=== PATIENT | male | born 1945 | race Caucasian/White ===

== ENCOUNTER → 2018-01-29 06:47 | Outpatient (CLI) | payer MEDICARE, OTHER, SELFPAY ==
[2018-01-29 07:55] LABS: Add Manual Diff / Slide Review NO; Basophils Percent Auto 0.6 % (0-2); Hematocrit 45.3 % (41-53); Hemoglobin 15.3 g/dL (13.5-17.5); Lymphocytes Percent Auto 36.6 % (25-40); Mean Corpuscular HGB Conc 33.9 % (30-36); Mean Corpuscular Hemoglobin 33.4 PG (26-34); Mean Corpuscular Volume 98.5 fL (80-100); Monocytes Percent Auto 9.9 % (3-14); Neutrophils Absolute Auto 2500 /uL (3000-5900); Neutrophils Percent Auto 48.9 % (50-75); Platelet Count 153 X10^3/uL (150-400); White Blood Cell Count 5.2 X10^3/uL (4.5-11.0)
[2018-01-29 08:35] LABS: Alanine Aminotransferase 26 IU/L (21-72); Albumin 4.2 g/dL (3.5-5.0); Albumin Globulin Ratio 1.6 (1.0-2.8); Alkaline Phosphatase 55 U/L (38-126); Aspartate Aminotransferase 23 IU/L (17-59); BUN Creatinine Ratio 23.3 (6-22); Bilirubin Total 0.7 mg/dL (0.2-1.3); Blood Urea Nitrogen 21 mg/dL (9-20); Calcium 9.5 mg/dL (8.4-10.2); Carbon Dioxide 29 mmol/L (22-32); Chloride 103 mmol/L (98-107); Cholesterol 162 mg/dL (140-199); Estimated Glomerular Filt Rate > 60.0 mL/min (>60); Globulin 2.7 g/dL (1.7-4.1); Glucose 95 mg/dL (80-110); HDL Cholesterol 87 mg/dL (40-60); HEMOLYSIS < 15 (0-50); LDL Cholesterol Calculated 65 mg/dL (<100); Sodium 142 mmol/L (137-145); Total Protein 6.9 g/dL (6.3-8.2); Triglycerides 51 mg/dL (35-150); Uric Acid 4.1 mg/dL (3.5-8.5)
== END ==
PROVIDERS: PCP Family Medicine; Visit Provider Family Medicine
DX: I10 Essential (primary) hypertension (principal); Z51.81 Encounter for therapeutic drug level monitoring; E78.5 Hyperlipidemia, unspecified; M10.9 Gout, unspecified; Z13.9 Encounter for screening, unspecified
CPT/HCPCS: 36415; 80053; 80061; 84550; 85025

== ENCOUNTER 2018-02-27 09:00 | Outpatient (RCR) | payer MEDICARE, OTHER, SELFPAY ==
--- NOTE | 2018-01-10 13:46 | PT.OIE ---
Current Diagnoses Other chronic pain (01/09/18) Pain in right shoulder (01/09/18) Pain in left shoulder (01/09/18) Past Medical History (Last Reviewed 12/01/17 @ 07:06 by Inocente Carl MD) Chronic left shoulder pain (Chronic) Chronic right shoulder pain (Chronic 04/19/17) BPH (benign prostatic hyperplasia) (Chronic Unknown) GERD (gastroesophageal reflux disease) (Chronic Unknown) Gout (Chronic Unknown) Hearing loss (Chronic Unknown) Hyperlipemia (Chronic Unknown) Hypertension (Chronic Unknown) Shoulder pain (Chronic Unknown) Bladder stones (Resolved Unknown) Chickenpox (Resolved Unknown) Knee pain (Resolved Unknown) Measles (Resolved Unknown) Past Surgical History (Last Reviewed 12/01/17 @ 06:59 by Inocente Carl MD) Hx of cystoscopy (Resolved 01/2015) Provider Visit Care Team Role Provider Type Inocente Carl MD Attending Provider Physician Family Provider Primary Care Provider Specialty: Family Practice Address: [address] [place] [address] Email: [email or web address] Physical Therapy Initial Evaluation PT-OP-A Visit Information Start: 01/09/18 14:22 Freq: Status: Active Protocol: Document 01/09/18 11:00 EA (Rec: 01/09/18 14:27 EA [id number]) Out-Patient Physical Therapy Visit Information Visit Information Visit Type Initial Evaluation Visit Start Time 09:45 Visit Stop Time 10:30 Total Visit Minutes 35 Visit Number 1 Evaluation Information Evaluation Date 01/09/18 PT-OP-B Current Condition Start: 01/09/18 14:22 Freq: Status: Active Protocol: Document 01/09/18 11:00 EA (Rec: 01/10/18 10:32 EA [id number]) Current Condition History of Current Condition Onset Date 04/2017 Current Complaints Bilateral shoulder pain R > L rated 4/10 with activity History of Current Condition Patient condition is a relapsed which initially started 7-8 months ago which he had 80% recovery with the help of PT on May of 2017 . Patient reports he followed HEP protocol religiously until August/September of this year when he felt that pain to right shoulder was not subsiding. Prior Treatments and Tests Formal PT 7-8 months ago Future Testing and Treatments Planned none Treatment Goals Patient/Caregiver Goals Wants to reduces shoulder pain and be able to perform overhead movement tasks without or with less difficulty. Prior Functional Status Baseline Function- ADL's Independent Current Functional Impairments (Reported) Functional Limitations- ADL's Mod difficulty with ADLS's with overhead movement. PT-OP-C Subjective Start: 01/09/18 14:22 Freq: Status: Active Protocol: Document 01/09/18 11:00 EA (Rec: 01/10/18 13:45 EA [id number]) OP-PT Subjective Patient Comments Patient Comments Patient c/o of right shoulder overhead movemnt due to localized posterior right shoulder pain rated 4/10 PS Patient Reported Progress Same Patient Questionnaires Quick Dash- Upper Extremity Quick Dash UE Score 36 Quick Dash UE Impairment 20 to 39% Impaired (Score 20- 39) PT-OP-E Functional Tests Start: 01/09/18 14:22 Freq: Status: Active Protocol: Document 01/09/18 11:00 EA (Rec: 01/10/18 13:45 EA [id number]) Functional Tests Apley's Scratch Test Action 1: The subject is instructed to touch the opposite shoulder with his/her hand. This motion checks Glenohumeral adduction, internal rotation , horizontal adduction and scapular protraction Action 2: The subject is instructed to place his/her arm overhead and reach behind the neck to touch his/her upper back. This motion checks Glenohumeral abduction, external rotation and scapular upward rotation and elevation. Action 3: The subject puts his/her hand on the lower back and reaches upward as far as possible. This motion checks glenohumeral adduction, internal rotation and scapular retraction with downward rotation Action 2- Left T2 Action 2- Right C7 Action 3- Left T10 Action 3- Right L1 PT-OP-K Range of Motion Start: 01/09/18 14:22 Freq: Status: Active Protocol: Document 01/09/18 11:00 EA (Rec: 01/10/18 13:45 EA [id number]) Shoulder Goniometric Range of Motion Shoulder Measured in Degrees Left Active Testing Position Sitting Flexion 170 Abduction 170 External Rotation at 0 degrees Abduction 80 Internal Rotation 50 Right Shoulder ROM WFL Yes Testing Position Sitting Flexion 160 Extension 160 External Rotation at 90 degrees 70 Abduction Internal Rotation 45 Shoulder ROM Limitations Shoulder ROM Limitations Soft Tissue Tightness Pain PT-OP-L Special Tests Start: 01/09/18 14:22 Freq: Status: Active Protocol: Document 01/09/18 11:00 EA (Rec: 01/10/18 13:45 EA [id number]) Special Tests Shoulder Special Tests Elevation Impingement Test Results Right positive Lift-Off Rotator Cuff Test Results Right positive Xiao Tahir Impingement Test Results Right positive Empty Can Test Results Right positive PT-OP-M Strength Start: 01/09/18 14:22 Freq: Status: Active Protocol: Document 01/09/18 11:00 EA (Rec: 01/10/18 13:45 EA [id number]) Shoulder Strength Shoulder Manual Muscle Testing Right Flexion 4- Good- Extension 4+ Good+ Abduction (C5) 4- Good- External Rotation 4- Good- Internal Rotation 4- Good- PT-OP-Q Treatments Start: 01/09/18 14:22 Freq: Status: Active Protocol: Document 01/09/18 11:00 EA (Rec: 01/10/18 13:45 EA [id number]) Self-Care/Home Management Treatment Education Patient Education Home Exercise Program Pain Management Posture PT-OP-T Assessment and Plan Start: 01/09/18 14:22 Freq: Status: Active Protocol: Document 01/09/18 11:00 EA (Rec: 01/10/18 13:45 EA [id number]) Physical Therapy Assessment Goals Three Impairment Subjective right shoulder pain of 4/10 with overhead movement Fdc Goal (LTG) Patient will perform overhead movement with Less than 1/10 PS. LTG Duration 4 /10 Two Impairment Right shoulder ER/IR, ABD, Flexion limitation Club Licensee Goal (LTG) Patient will exhibit Normal ROM with R shoulder ABD/ Flexion/ ER/IR LTG Duration 4 wks One Impairment Quickdash score of 36 Club Licensee Goal (LTG) Patient will have QuickDash score of < 15 LTG Duration 4 wks Assessment Summary Assessment Pleasant 72 y/o male patient who exhibits difficulty with overhead movement and reaching back due to pain complaint and LOM to right shoulder. Patient demonstrates tests positive to impingement of posterior and anterior rotator cuff tendons; no indication of full tear at this moment as strength is mainly limited with pain. Patient would benefit with skilled PT to address the aforementioned issues. Physical Therapy Plan Frequency and Duration Frequency of Treatment 2x/Week Plan of Care Start Date 01/09/18 Plan of Care End Date 02/27/18 Therapeutic Interventions Therapeutic Interventions Home Exercise Program Joint Mobilizations Manual Therapy Patient/Caregiver Education Self-Care/Home Management Soft Tissue Mobilization Taping Therapeutic Activities Therapeutic Exercises Modalities Cold Pack/Ice Massage Electric Stimulation Hot Packs Next Visit Focus/Plan Next Note Type Treatment Note Next Visit Plan Reduce pain, increase ROM, decrease ms guarding, improve posture.
--- NOTE | 2018-01-10 13:47 | PT.OPPOC ---
Current Diagnoses Other chronic pain (01/09/18) Pain in right shoulder (01/09/18) Pain in left shoulder (01/09/18) Provider Visit Care Team Role Provider Type Inocente Carl MD Attending Provider Physician Family Provider Primary Care Provider Specialty: Family Practice Address: [address] [place] [address], [id number] Email: [email or web address] Plan Of Care PT-OP-T Assessment and Plan Start: 01/09/18 14:22 Freq: Status: Active Protocol: Document 01/09/18 11:00 EA (Rec: 01/10/18 13:45 EA [id number]) Physical Therapy Assessment Goals Three Impairment Subjective right shoulder pain of 4/10 with overhead movement Usp Goal (LTG) Patient will perform overhead movement with Less than 1/10 PS. LTG Duration 4 /10 Two Impairment Right shoulder ER/IR, ABD, Flexion limitation Usp Goal (LTG) Patient will exhibit Normal ROM with R shoulder ABD/ Flexion/ ER/IR LTG Duration 4 wks One Impairment Quickdash score of 36 Signal Operator Technical Goal (LTG) Patient will have QuickDash score of < 15 LTG Duration 4 wks Assessment Summary Assessment Pleasant 72 y/o male patient who exhibits difficulty with overhead movement and reaching back due to pain complaint and LOM to right shoulder. Patient demonstrates tests positive to impingement of posterior and anterior rotator cuff tendons; no indication of full tear at this moment as strength is mainly limited with pain. Patient would benefit with skilled PT to address the aforementioned issues. Physical Therapy Plan Frequency and Duration Frequency of Treatment 2x/Week Plan of Care Start Date 01/09/18 Plan of Care End Date 02/27/18 Therapeutic Interventions Therapeutic Interventions Home Exercise Program Joint Mobilizations Manual Therapy Patient/Caregiver Education Self-Care/Home Management Soft Tissue Mobilization Taping Therapeutic Activities Therapeutic Exercises Modalities Cold Pack/Ice Massage Electric Stimulation Hot Packs Next Visit Focus/Plan Next Note Type Treatment Note Next Visit Plan Reduce pain, increase ROM, decrease ms guarding, improve posture. Plan of Care Dates Plan of Care Start Date 01/09/18 Plan of Care End Date 02/27/18 Please Sign and Return: I have reviewed this Plan of Care and certify that the skilled therapy services above are required to meet the patient?s needs. Physician Signature Date Printed Name and Credentials Clinical Instructor Signature Printed Name and Credentials
--- NOTE | 2018-01-16 13:06 | PT.OTN ---
Current Diagnoses Other chronic pain (01/16/18) Pain in right shoulder (01/16/18) Pain in left shoulder (01/16/18) Physical Therapy Treatment Note PT-OP-A Visit Information Start: 01/09/18 14:22 Freq: Status: Active Protocol: Document 01/16/18 10:38 EA (Rec: 01/16/18 11:14 EA [id number]) Out-Patient Physical Therapy Visit Information Visit Information Visit Type Treatment Note Visit Start Time 10:32 Visit Stop Time 11:40 Total Visit Minutes 38 Visit Number 2 PT-OP-B Current Condition Start: 01/09/18 14:22 Freq: Status: Active Protocol: Document 01/09/18 11:00 EA (Rec: 01/10/18 10:32 EA [id number]) Current Condition History of Current Condition Onset Date 04/2017 Current Complaints Bilateral shoulder pain R > L rated 4/10 with activity History of Current Condition Patient condition is a relapsed which initially started 7-8 months ago which he had 80% recovery with the help of PT on May of 2017 . Patient reports he followed HEP protocol religiosly until August/September of this year when he felt that pain to right shoulder was not subsiding. Prior Treatments and Tests Formal PT 7-8 months ago Future Testing and Treatments Planned none Treatment Goals Patient/Caregiver Goals Wants to redues shoulder pain and be able to perform overhead movement tasks without or with less difficulty. Prior Functional Status Baseline Function- ADL's Independent Current Functional Impairments (Reported) Functional Limitations- ADL's Mod difficulty with ADLS's with overhead movement. PT-OP-C Subjective Start: 01/09/18 14:22 Freq: Status: Active Protocol: Document 01/16/18 10:38 EA (Rec: 01/16/18 11:14 EA [id number]) OP-PT Subjective Patient Comments Patient Comments Patient reports pain at night Patient Reported Progress Same PT-OP-E Functional Tests Start: 01/09/18 14:22 Freq: Status: Active Protocol: Document 01/09/18 11:00 EA (Rec: 01/10/18 13:45 EA [id number]) Functional Tests Brittaniey's Scratch Test Action 1: The subject is instructed to touch the opposite shoulder with his/her hand. This motion checks Glenohumeral adduction, internal rotation , horizontal adduction and scapular protraction Action 2: The subject is instructed to place his/her arm overhead and reach behind the neck to touch his/her upper back. This motion checks Glenohumeral abduction, external rotation and scapular upward rotation and elevation. Action 3: The subject puts his/her hand on the lower back and reaches upward as far as possible. This motion checks glenohumeral adduction, internal rotation and scapular retraction with downward rotation Action 2- Left T2 Action 2- Right C7 Action 3- Left T10 Action 3- Right L1 PT-OP-K Range of Motion Start: 01/09/18 14:22 Freq: Status: Active Protocol: Document 01/09/18 11:00 EA (Rec: 01/10/18 13:45 EA [id number]) Shoulder Goniometric Range of Motion Shoulder Measured in Degrees Left Active Testing Position Sitting Flexion 170 Abduction 170 External Rotation at 0 degrees Abduction 80 Internal Rotation 50 Right Shoulder ROM WFL Yes Testing Position Sitting Flexion 160 Extension 160 External Rotation at 90 degrees 70 Abduction Internal Rotation 45 Shoulder ROM Limitations Shoulder ROM Limitations Soft Tissue Tightness Pain PT-OP-L Special Tests Start: 01/09/18 14:22 Freq: Status: Active Protocol: Document 01/09/18 11:00 EA (Rec: 01/10/18 13:45 EA [id number]) Special Tests Shoulder Special Tests Elevation Impingement Test Results Right positive Lift-Off Rotator Cuff Test Results Right positive Xiao [place]ir Impingement Test Results Right positive Empty Can Test Results Right positive PT-OP-M Strength Start: 01/09/18 14:22 Freq: Status: Active Protocol: Document 01/09/18 11:00 EA (Rec: 01/10/18 13:45 EA [id number]) Shoulder Strength Shoulder Manual Muscle Testing Right Flexion 4- Good- Extension 4+ Good+ Abduction (C5) 4- Good- External Rotation 4- Good- Internal Rotation 4- Good- PT-OP-Q Treatments Start: 01/09/18 14:22 Freq: Status: Active Protocol: Document 01/16/18 10:38 EA (Rec: 01/16/18 11:14 EA [id number]) Cardio Equipment Upper Body Ergometer (UBE) Duration (Minutes) 6 Height 1 Therapeutic Exercises Sitting Exercises 1 Sitting Exercise Name Shoulder pully: Flex/ABD Side right Reps/Minutes x 15 reps x 2 Standing Exercises 3 Standing Exercise Name Pain free range: shoulder ER/ IR Side right Resistance BTB/level 1 2 Standing Exercise Name BTB shoulder row Side bilateral Reps/Minutes x 12 reps x 2 1 Standing Exercise Name BTB shoulder extension Side bilateral Reps/Minutes x12 reps x 2 Manual Therapy Treatment Soft Tissue Mobilization 1 Body Location Right Infraspinatus/ TM tendon Mobilization Type Cross-Friction Intensity/Depth Moderate Comments performed after US PT-OP-R Modalities Start: 01/09/18 14:22 Freq: Status: Active Protocol: Document 01/16/18 10:38 EA (Rec: 01/16/18 11:14 EA [id number]) Hot Pack/Cold Pack Treatment Cold Pack Patient Position Hooklying Treatment Duration (minutes) 12 Patient Tolerance Fair Ultrasound Therapy Treatment Right Shoulder Patient Position Sidelying Coupling Medium Ultrasound Gel Applicator Size (cm2) 8 Mode Setting Continuous Intensity Setting (w/cm2) 1.5 PT-OP-T Assessment and Plan Start: 01/09/18 14:22 Freq: Status: Active Protocol: Document 01/16/18 10:38 EA (Rec: 01/16/18 11:14 EA [id number]) Physical Therapy Assessment Assessment Summary Assessment Tolerated treatment well. Physical Therapy Plan Next Visit Focus/Plan Next Note Type Treatment Note Next Visit Plan Cont with current plan.
--- NOTE | 2018-01-18 13:39 | PT.OTN ---
Current Diagnoses Other chronic pain (01/18/18) Pain in right shoulder (01/18/18) Pain in left shoulder (01/18/18) Physical Therapy Treatment Note PT-OP-A Visit Information Start: 01/09/18 14:22 Freq: Status: Active Protocol: Document 01/18/18 12:56 EA (Rec: 01/18/18 13:00 EA [id number]) Out-Patient Physical Therapy Visit Information Visit Information Visit Type Treatment Note Visit Start Time 12:15 Visit Stop Time 13:08 Total Visit Minutes 53 Visit Number 3 PT-OP-B Current Condition Start: 01/09/18 14:22 Freq: Status: Active Protocol: Document 01/09/18 11:00 EA (Rec: 01/10/18 10:32 EA [id number]) Current Condition History of Current Condition Onset Date 04/2017 Current Complaints Bilateral shoulder pain R > L rated 4/10 with activity History of Current Condition Patient condition is a relapsed which initially started 7-8 months ago which he had 80% recovery with the help of PT on May of 2017 . Patient reports he followed HEP protocol religiosly until August/September of this year when he felt that pain to right shoulder was not subsiding. Prior Treatments and Tests Formal PT 7-8 months ago Future Testing and Treatments Planned none Treatment Goals Patient/Caregiver Goals Wants to redues shoulder pain and be able to perform overhead movement tasks without or with less difficulty. Prior Functional Status Baseline Function- ADL's Independent Current Functional Impairments (Reported) Functional Limitations- ADL's Mod difficulty with ADLS's with overhead movement. PT-OP-C Subjective Start: 01/09/18 14:22 Freq: Status: Active Protocol: Document 01/18/18 12:56 EA (Rec: 01/18/18 13:00 EA [id number]) OP-PT Subjective Patient Comments Patient Comments Pt reports able to sleep welland feels shoulder is getting better PT-OP-E Functional Tests Start: 01/09/18 14:22 Freq: Status: Active Protocol: Document 01/09/18 11:00 EA (Rec: 01/10/18 13:45 EA [id number]) Functional Tests Brittaniey's Scratch Test Action 1: The subject is instructed to touch the opposite shoulder with his/her hand. This motion checks Glenohumeral adduction, internal rotation , horizontal adduction and scapular protraction Action 2: The subject is instructed to place his/her arm overhead and reach behind the neck to touch his/her upper back. This motion checks Glenohumeral abduction, external rotation and scapular upward rotation and elevation. Action 3: The subject puts his/her hand on the lower back and reaches upward as far as possible. This motion checks glenohumeral adduction, internal rotation and scapular retraction with downward rotation Action 2- Left T2 Action 2- Right C7 Action 3- Left T10 Action 3- Right L1 PT-OP-K Range of Motion Start: 01/09/18 14:22 Freq: Status: Active Protocol: Document 01/09/18 11:00 EA (Rec: 01/10/18 13:45 EA [id number]) Shoulder Goniometric Range of Motion Shoulder Measured in Degrees Left Active Testing Position Sitting Flexion 170 Abduction 170 External Rotation at 0 degrees Abduction 80 Internal Rotation 50 Right Shoulder ROM WFL Yes Testing Position Sitting Flexion 160 Extension 160 External Rotation at 90 degrees 70 Abduction Internal Rotation 45 Shoulder ROM Limitations Shoulder ROM Limitations Soft Tissue Tightness Pain PT-OP-L Special Tests Start: 01/09/18 14:22 Freq: Status: Active Protocol: Document 01/09/18 11:00 EA (Rec: 01/10/18 13:45 EA [id number]) Special Tests Shoulder Special Tests Elevation Impingement Test Results Right positive Lift-Off Rotator Cuff Test Results Right positive Xiao Tahir Impingement Test Results Right positive Empty Can Test Results Right positive PT-OP-M Strength Start: 01/09/18 14:22 Freq: Status: Active Protocol: Document 01/09/18 11:00 EA (Rec: 01/10/18 13:45 EA [id number]) Shoulder Strength Shoulder Manual Muscle Testing Right Flexion 4- Good- Extension 4+ Good+ Abduction (C5) 4- Good- External Rotation 4- Good- Internal Rotation 4- Good- PT-OP-Q Treatments Start: 01/09/18 14:22 Freq: Status: Active Protocol: Document 01/18/18 12:56 EA (Rec: 01/18/18 13:00 EA [id number]) Cardio Equipment Upper Body Ergometer (UBE) Duration (Minutes) 6 Height 1 Therapeutic Exercises Standing Exercises 3 Standing Exercise Name Pain free range: shoulder ER/ IR Side right Resistance BTB/level 1 2 Standing Exercise Name BTB shoulder row Side bilateral Reps/Minutes x 12 reps x 2 1 Standing Exercise Name BTB shoulder extension Side bilateral Reps/Minutes x12 reps x 2 Manual Therapy Treatment Soft Tissue Mobilization 1 Body Location Right Infraspinatus/ TM tendon Mobilization Type Cross-Friction Intensity/Depth Moderate Comments performed after US PT-OP-R Modalities Start: 01/09/18 14:22 Freq: Status: Active Protocol: Document 01/18/18 12:56 EA (Rec: 01/18/18 13:00 EA [id number]) Electric Stimulation Electric Stimulation Interferential Current (IFC) Body Location right shoulder Duration (Minutes) 15 Combined With Heat/Cold Cold Pack Ultrasound Therapy Treatment Right Shoulder Patient Position Sidelying Coupling Medium Ultrasound Gel Applicator Size (cm2) 8 Mode Setting Continuous Intensity Setting (w/cm2) 1.5 PT-OP-T Assessment and Plan Start: 01/09/18 14:22 Freq: Status: Active Protocol: Document 01/18/18 12:56 EA (Rec: 01/18/18 13:00 EA [id number]) Physical Therapy Assessment Assessment Summary Assessment Tolerated treatment well and no increased in symptoms with exercises. Pt is progressing well. Physical Therapy Plan Next Visit Focus/Plan Next Note Type Treatment Note Next Visit Plan Cont with current plan.
--- NOTE | 2018-01-23 14:24 | PT.OTN ---
Current Diagnoses Other chronic pain (01/23/18) Pain in right shoulder (01/23/18) Pain in left shoulder (01/23/18) Physical Therapy Treatment Note PT-OP-A Visit Information Start: 01/09/18 14:22 Freq: Status: Active Protocol: Document 01/23/18 10:36 EA (Rec: 01/23/18 11:14 EA [id number]) Out-Patient Physical Therapy Visit Information Visit Information Visit Type Treatment Note Visit Start Time 12:15 Visit Stop Time 13:08 Total Visit Minutes 53 Visit Number 3 PT-OP-B Current Condition Start: 01/09/18 14:22 Freq: Status: Active Protocol: Document 01/09/18 11:00 EA (Rec: 01/10/18 10:32 EA [id number]) Current Condition History of Current Condition Onset Date 04/2017 Current Complaints Bilateral shoulder pain R > L rated 4/10 with activity History of Current Condition Patient condition is a relapsed which initially started 7-8 months ago which he had 80% recovery with the help of PT on May of 2017 . Patient reports he followed HEP protocol religiosly until August/September of this year when he felt that pain to right shoulder was not subsiding. Prior Treatments and Tests Formal PT 7-8 months ago Future Testing and Treatments Planned none Treatment Goals Patient/Caregiver Goals Wants to redues shoulder pain and be able to perform overhead movement tasks without or with less difficulty. Prior Functional Status Baseline Function- ADL's Independent Current Functional Impairments (Reported) Functional Limitations- ADL's Mod difficulty with ADLS's with overhead movement. PT-OP-C Subjective Start: 01/09/18 14:22 Freq: Status: Active Protocol: Document 01/23/18 10:36 EA (Rec: 01/23/18 11:14 EA [id number]) OP-PT Subjective Patient Comments Patient Comments Pt reports pain made his woke up last night; states today no pain complaint; overall he is much feeling better. PT-OP-E Functional Tests Start: 01/09/18 14:22 Freq: Status: Active Protocol: Document 01/09/18 11:00 EA (Rec: 01/10/18 13:45 EA [id number]) Functional Tests Brittaniey's Scratch Test Action 1: The subject is instructed to touch the opposite shoulder with his/her hand. This motion checks Glenohumeral adduction, internal rotation , horizontal adduction and scapular protraction Action 2: The subject is instructed to place his/her arm overhead and reach behind the neck to touch his/her upper back. This motion checks Glenohumeral abduction, external rotation and scapular upward rotation and elevation. Action 3: The subject puts his/her hand on the lower back and reaches upward as far as possible. This motion checks glenohumeral adduction, internal rotation and scapular retraction with downward rotation Action 2- Left T2 Action 2- Right C7 Action 3- Left T10 Action 3- Right L1 PT-OP-K Range of Motion Start: 01/09/18 14:22 Freq: Status: Active Protocol: Document 01/09/18 11:00 EA (Rec: 01/10/18 13:45 EA [id number]) Shoulder Goniometric Range of Motion Shoulder Measured in Degrees Left Active Testing Position Sitting Flexion 170 Abduction 170 External Rotation at 0 degrees Abduction 80 Internal Rotation 50 Right Shoulder ROM WFL Yes Testing Position Sitting Flexion 160 Extension 160 External Rotation at 90 degrees 70 Abduction Internal Rotation 45 Shoulder ROM Limitations Shoulder ROM Limitations Soft Tissue Tightness Pain PT-OP-L Special Tests Start: 01/09/18 14:22 Freq: Status: Active Protocol: Document 01/09/18 11:00 EA (Rec: 01/10/18 13:45 EA [id number]) Special Tests Shoulder Special Tests Elevation Impingement Test Results Right positive Lift-Off Rotator Cuff Test Results Right positive Xiao [place]ir Impingement Test Results Right positive Empty Can Test Results Right positive PT-OP-M Strength Start: 01/09/18 14:22 Freq: Status: Active Protocol: Document 01/09/18 11:00 EA (Rec: 01/10/18 13:45 EA [id number]) Shoulder Strength Shoulder Manual Muscle Testing Right Flexion 4- Good- Extension 4+ Good+ Abduction (C5) 4- Good- External Rotation 4- Good- Internal Rotation 4- Good- PT-OP-Q Treatments Start: 01/09/18 14:22 Freq: Status: Active Protocol: Document 01/23/18 10:36 EA (Rec: 01/23/18 11:14 EA [id number]) Cardio Equipment Upper Body Ergometer (UBE) Duration (Minutes) 6 Height 1-5 Therapeutic Exercises Sidelying Exercises 1 Sidelying Exercise Name SL to left DH shoulder ER, ABD , Horiz ABD Side right Equipment Used DB Reps/Minutes x 15 reps x 2 Standing Exercises 3 Standing Exercise Name Pain free range: shoulder ER/ IR Side right Resistance BTB/level 1 2 Standing Exercise Name BTB shoulder row Side bilateral Reps/Minutes x 12 reps x 2 1 Standing Exercise Name BTB shoulder extension Side bilateral Reps/Minutes x12 reps x 2 Manual Therapy Treatment Soft Tissue Mobilization 1 Body Location Right Infraspinatus/ TM tendon Mobilization Type Cross-Friction Intensity/Depth Moderate Comments performed after US PT-OP-R Modalities Start: 01/09/18 14:22 Freq: Status: Active Protocol: Document 01/23/18 10:36 EA (Rec: 01/23/18 11:14 EA [id number]) Electric Stimulation Electric Stimulation Interferential Current (IFC) Body Location right shoulder Duration (Minutes) 15 Combined With Heat/Cold Cold Pack Ultrasound Therapy Treatment Right Shoulder Patient Position Sidelying Coupling Medium Ultrasound Gel Applicator Size (cm2) 8 Mode Setting Continuous Intensity Setting (w/cm2) 1.5 PT-OP-T Assessment and Plan Start: 01/09/18 14:22 Freq: Status: Active Protocol: Document 01/23/18 10:36 EA (Rec: 01/23/18 11:14 EA [id number]) Physical Therapy Assessment Assessment Summary Assessment Patient is progresing well; no pain complaint during free weight exercises. Physical Therapy Plan Next Visit Focus/Plan Next Note Type Treatment Note Next Visit Plan advance as tolerated
--- NOTE | 2018-01-25 15:24 | PT.OTN ---
Current Diagnoses Other chronic pain (01/25/18) Pain in right shoulder (01/25/18) Pain in left shoulder (01/25/18) Physical Therapy Treatment Note PT-OP-A Visit Information Start: 01/09/18 14:22 Freq: Status: Active Protocol: Document 01/25/18 15:11 EA (Rec: 01/25/18 15:16 EA [id number]) Out-Patient Physical Therapy Visit Information Visit Information Visit Type Treatment Note Visit Start Time 14:30 Visit Stop Time 15:15 Total Visit Minutes 53 Visit Number 5 PT-OP-B Current Condition Start: 01/09/18 14:22 Freq: Status: Active Protocol: Document 01/09/18 11:00 EA (Rec: 01/10/18 10:32 EA [id number]) Current Condition History of Current Condition Onset Date 04/2017 Current Complaints Bilateral shoulder pain R > L rated 4/10 with activity History of Current Condition Patient condition is a relapsed which initially started 7-8 months ago which he had 80% recovery with the help of PT on May of 2017 . Patient reports he followed HEP protocol religiosly until August/September of this year when he felt that pain to right shoulder was not subsiding. Prior Treatments and Tests Formal PT 7-8 months ago Future Testing and Treatments Planned none Treatment Goals Patient/Caregiver Goals Wants to redues shoulder pain and be able to perform overhead movement tasks without or with less difficulty. Prior Functional Status Baseline Function- ADL's Independent Current Functional Impairments (Reported) Functional Limitations- ADL's Mod difficulty with ADLS's with overhead movement. PT-OP-C Subjective Start: 01/09/18 14:22 Freq: Status: Active Protocol: Document 01/25/18 15:11 EA (Rec: 01/25/18 15:16 EA [id number]) OP-PT Subjective Patient Comments Patient Comments Pt reports pain frequency is less and sleeping well. PT-OP-E Functional Tests Start: 01/09/18 14:22 Freq: Status: Active Protocol: Document 01/09/18 11:00 EA (Rec: 01/10/18 13:45 EA [id number]) Functional Tests Brittaniey's Scratch Test Action 1: The subject is instructed to touch the opposite shoulder with his/her hand. This motion checks Glenohumeral adduction, internal rotation , horizontal adduction and scapular protraction Action 2: The subject is instructed to place his/her arm overhead and reach behind the neck to touch his/her upper back. This motion checks Glenohumeral abduction, external rotation and scapular upward rotation and elevation. Action 3: The subject puts his/her hand on the lower back and reaches upward as far as possible. This motion checks glenohumeral adduction, internal rotation and scapular retraction with downward rotation Action 2- Left T2 Action 2- Right C7 Action 3- Left T10 Action 3- Right L1 PT-OP-K Range of Motion Start: 01/09/18 14:22 Freq: Status: Active Protocol: Document 01/09/18 11:00 EA (Rec: 01/10/18 13:45 EA [id number]) Shoulder Goniometric Range of Motion Shoulder Measured in Degrees Left Active Testing Position Sitting Flexion 170 Abduction 170 External Rotation at 0 degrees Abduction 80 Internal Rotation 50 Right Shoulder ROM WFL Yes Testing Position Sitting Flexion 160 Extension 160 External Rotation at 90 degrees 70 Abduction Internal Rotation 45 Shoulder ROM Limitations Shoulder ROM Limitations Soft Tissue Tightness Pain PT-OP-L Special Tests Start: 01/09/18 14:22 Freq: Status: Active Protocol: Document 01/09/18 11:00 EA (Rec: 01/10/18 13:45 EA [id number]) Special Tests Shoulder Special Tests Elevation Impingement Test Results Right positive Lift-Off Rotator Cuff Test Results Right positive Xiao [place]ir Impingement Test Results Right positive Empty Can Test Results Right positive PT-OP-M Strength Start: 01/09/18 14:22 Freq: Status: Active Protocol: Document 01/09/18 11:00 EA (Rec: 01/10/18 13:45 EA [id number]) Shoulder Strength Shoulder Manual Muscle Testing Right Flexion 4- Good- Extension 4+ Good+ Abduction (C5) 4- Good- External Rotation 4- Good- Internal Rotation 4- Good- PT-OP-Q Treatments Start: 01/09/18 14:22 Freq: Status: Active Protocol: Document 01/25/18 15:11 EA (Rec: 01/25/18 15:16 EA [id number]) Cardio Equipment Upper Body Ergometer (UBE) Duration (Minutes) 6 Height 3-7 Therapeutic Exercises Sidelying Exercises 1 Sidelying Exercise Name SL to left DH shoulder ER, ABD , Horiz ABD Side right Equipment Used DB Reps/Minutes x 15 reps x 2 Standing Exercises 4 Standing Exercise Name wall slides Resistance 2# aw TO WRIST Reps/Minutes 10 x 3 sets Comments V-Front -rectangle 3 Standing Exercise Name Pain free range: shoulder ER/ IR Side right Resistance BTB/level 1 2 Standing Exercise Name BTB shoulder row Side bilateral Reps/Minutes x 12 reps x 2 1 Standing Exercise Name BTB shoulder extension Side bilateral Reps/Minutes x12 reps x 2 Manual Therapy Treatment Soft Tissue Mobilization 1 Body Location Right Infraspinatus/ TM tendon Mobilization Type Cross-Friction Intensity/Depth Moderate Comments performed after US PT-OP-R Modalities Start: 01/09/18 14:22 Freq: Status: Active Protocol: Document 01/25/18 15:11 EA (Rec: 01/25/18 15:16 EA [id number]) Electric Stimulation Electric Stimulation Interferential Current (IFC) Body Location right shoulder Duration (Minutes) 15 Combined With Heat/Cold Cold Pack Ultrasound Therapy Treatment Right Shoulder Patient Position Sidelying Coupling Medium Ultrasound Gel Applicator Size (cm2) 8 Mode Setting Continuous Intensity Setting (w/cm2) 1.5 PT-OP-T Assessment and Plan Start: 01/09/18 14:22 Freq: Status: Active Protocol: Document 01/25/18 15:11 EA (Rec: 01/25/18 15:16 EA [id number]) Physical Therapy Assessment Assessment Summary Assessment Pt cont to progress. Adnace as tolerated Physical Therapy Plan Next Visit Focus/Plan Next Note Type Treatment Note Next Visit Plan advance as tolerated
--- NOTE | 2018-01-30 07:18 | PT.OTN ---
Current Diagnoses Other chronic pain (01/29/18) Pain in right shoulder (01/29/18) Pain in left shoulder (01/29/18) Physical Therapy Treatment Note PT-OP-A Visit Information Start: 01/09/18 14:22 Freq: Status: Active Protocol: Document 01/29/18 15:21 EA (Rec: 01/29/18 16:04 EA [id number]) Out-Patient Physical Therapy Visit Information Visit Information Visit Type Treatment Note Visit Start Time 15:15 Visit Stop Time 16:00 Total Visit Minutes 53 Visit Number 6 PT-OP-B Current Condition Start: 01/09/18 14:22 Freq: Status: Active Protocol: Document 01/09/18 11:00 EA (Rec: 01/10/18 10:32 EA [id number]) Current Condition History of Current Condition Onset Date 04/2017 Current Complaints Bilateral shoulder pain R > L rated 4/10 with activity History of Current Condition Patient condition is a relapsed which initially started 7-8 months ago which he had 80% recovery with the help of PT on May of 2017 . Patient reports he followed HEP protocol religiosly until August/September of this year when he felt that pain to right shoulder was not subsiding. Prior Treatments and Tests Formal PT 7-8 months ago Future Testing and Treatments Planned none Treatment Goals Patient/Caregiver Goals Wants to redues shoulder pain and be able to perform overhead movement tasks without or with less difficulty. Prior Functional Status Baseline Function- ADL's Independent Current Functional Impairments (Reported) Functional Limitations- ADL's Mod difficulty with ADLS's with overhead movement. PT-OP-C Subjective Start: 01/09/18 14:22 Freq: Status: Active Protocol: Document 01/29/18 15:21 EA (Rec: 01/29/18 16:04 EA [id number]) OP-PT Subjective Patient Comments Patient Comments Pt reports pain is much less at this time;states function is improving. PT-OP-E Functional Tests Start: 01/09/18 14:22 Freq: Status: Active Protocol: Document 01/09/18 11:00 EA (Rec: 01/10/18 13:45 EA [id number]) Functional Tests Brittaniey's Scratch Test Action 1: The subject is instructed to touch the opposite shoulder with his/her hand. This motion checks Glenohumeral adduction, internal rotation , horizontal adduction and scapular protraction Action 2: The subject is instructed to place his/her arm overhead and reach behind the neck to touch his/her upper back. This motion checks Glenohumeral abduction, external rotation and scapular upward rotation and elevation. Action 3: The subject puts his/her hand on the lower back and reaches upward as far as possible. This motion checks glenohumeral adduction, internal rotation and scapular retraction with downward rotation Action 2- Left T2 Action 2- Right C7 Action 3- Left T10 Action 3- Right L1 PT-OP-K Range of Motion Start: 01/09/18 14:22 Freq: Status: Active Protocol: Document 01/09/18 11:00 EA (Rec: 01/10/18 13:45 EA [id number]) Shoulder Goniometric Range of Motion Shoulder Measured in Degrees Left Active Testing Position Sitting Flexion 170 Abduction 170 External Rotation at 0 degrees Abduction 80 Internal Rotation 50 Right Shoulder ROM WFL Yes Testing Position Sitting Flexion 160 Extension 160 External Rotation at 90 degrees 70 Abduction Internal Rotation 45 Shoulder ROM Limitations Shoulder ROM Limitations Soft Tissue Tightness Pain PT-OP-L Special Tests Start: 01/09/18 14:22 Freq: Status: Active Protocol: Document 01/09/18 11:00 EA (Rec: 01/10/18 13:45 EA [id number]) Special Tests Shoulder Special Tests Elevation Impingement Test Results Right positive Lift-Off Rotator Cuff Test Results Right positive X[place]ir Impingement Test Results Right positive Empty Can Test Results Right positive PT-OP-M Strength Start: 01/09/18 14:22 Freq: Status: Active Protocol: Document 01/09/18 11:00 EA (Rec: 01/10/18 13:45 EA [id number]) Shoulder Strength Shoulder Manual Muscle Testing Right Flexion 4- Good- Extension 4+ Good+ Abduction (C5) 4- Good- External Rotation 4- Good- Internal Rotation 4- Good- PT-OP-Q Treatments Start: 01/09/18 14:22 Freq: Status: Active Protocol: Document 01/29/18 15:21 EA (Rec: 01/29/18 16:04 EA [id number]) Cardio Equipment Upper Body Ergometer (UBE) Duration (Minutes) 6 Height 3-7 Therapeutic Exercises Prone Exercises 1 Prone Exercise Name Shoulder extension/Flexion/ABD Side right Equipment Used 2lbs AW Reps/Minutes 10 reps x 2 Sidelying Exercises 1 Sidelying Exercise Name SL to left DH shoulder ER, ABD , Horiz ABD Side right Equipment Used DB Reps/Minutes x 15 reps x 2 Standing Exercises 4 Standing Exercise Name wall slides Resistance 2-4# aw TO WRIST Reps/Minutes 10 x 3 sets Comments V-Front -rectangle 3 Standing Exercise Name Pain free range: shoulder ER/ IR Side right Resistance BTB/level 1 2 Standing Exercise Name BTB shoulder row Side bilateral Reps/Minutes x 12 reps x 2 1 Standing Exercise Name BTB shoulder extension Side bilateral Reps/Minutes x12 reps x 2 Manual Therapy Treatment Soft Tissue Mobilization 1 Body Location Right Infraspinatus/ TM tendon Mobilization Type Cross-Friction Intensity/Depth Moderate Comments performed after US PT-OP-R Modalities Start: 01/09/18 14:22 Freq: Status: Active Protocol: Document 01/29/18 15:21 EA (Rec: 01/29/18 16:04 EA [id number]) Electric Stimulation Electric Stimulation Interferential Current (IFC) Body Location right shoulder Duration (Minutes) 15 Combined With Heat/Cold Cold Pack PT-OP-T Assessment and Plan Start: 01/09/18 14:22 Freq: Status: Active Protocol: Document 01/29/18 15:21 EA (Rec: 01/29/18 16:04 EA [id number]) Physical Therapy Assessment Assessment Summary Assessment Tolerated treatment well with minor pain complaint. Patient cont. to progress Physical Therapy Plan Next Visit Focus/Plan Next Note Type Treatment Note Next Visit Plan Functional exercises
--- NOTE | 2018-02-01 15:54 | PT.OTN ---
Current Diagnoses Other chronic pain (02/01/18) Pain in right shoulder (02/01/18) Pain in left shoulder (02/01/18) Physical Therapy Treatment Note PT-OP-A Visit Information Start: 01/09/18 14:22 Freq: Status: Active Protocol: Document 02/01/18 14:38 EA (Rec: 02/01/18 15:15 EA [id number]) Out-Patient Physical Therapy Visit Information Visit Information Visit Type Treatment Note Visit Start Time 15:15 Visit Stop Time 16:00 Total Visit Minutes 53 Visit Number 7 Evaluation Information Evaluation Date 01/09/18 PT-OP-B Current Condition Start: 01/09/18 14:22 Freq: Status: Active Protocol: Document 01/09/18 11:00 EA (Rec: 01/10/18 10:32 EA [id number]) Current Condition History of Current Condition Onset Date 04/2017 Current Complaints Bilateral shoulder pain R > L rated 4/10 with activity History of Current Condition Patient condition is a relapsed which initially started 7-8 months ago which he had 80% recovery with the help of PT on May of 2017 . Patient reports he followed HEP protocol religiosly until August/September of this year when he felt that pain to right shoulder was not subsiding. Prior Treatments and Tests Formal PT 7-8 months ago Future Testing and Treatments Planned none Treatment Goals Patient/Caregiver Goals Wants to redues shoulder pain and be able to perform overhead movement tasks without or with less difficulty. Prior Functional Status Baseline Function- ADL's Independent Current Functional Impairments (Reported) Functional Limitations- ADL's Mod difficulty with ADLS's with overhead movement. PT-OP-C Subjective Start: 01/09/18 14:22 Freq: Status: Active Protocol: Document 02/01/18 14:38 EA (Rec: 02/01/18 15:15 EA [id number]) OP-PT Subjective Patient Comments Patient Comments Pt reports pain recurred after last TB shoulder exercises; states today is much feeling better. Patient Reported Progress Improving Patient Questionnaires Quick Dash- Upper Extremity Quick Dash UE Score 36 PT-OP-E Functional Tests Start: 01/09/18 14:22 Freq: Status: Active Protocol: Document 01/09/18 11:00 EA (Rec: 01/10/18 13:45 EA [id number]) Functional Tests Brittaniey's Scratch Test Action 1: The subject is instructed to touch the opposite shoulder with his/her hand. This motion checks Glenohumeral adduction, internal rotation , horizontal adduction and scapular protraction Action 2: The subject is instructed to place his/her arm overhead and reach behind the neck to touch his/her upper back. This motion checks Glenohumeral abduction, external rotation and scapular upward rotation and elevation. Action 3: The subject puts his/her hand on the lower back and reaches upward as far as possible. This motion checks glenohumeral adduction, internal rotation and scapular retraction with downward rotation Action 2- Left T2 Action 2- Right C7 Action 3- Left T10 Action 3- Right L1 PT-OP-K Range of Motion Start: 01/09/18 14:22 Freq: Status: Active Protocol: Document 01/09/18 11:00 EA (Rec: 01/10/18 13:45 EA [id number]) Shoulder Goniometric Range of Motion Shoulder Measured in Degrees Left Active Testing Position Sitting Flexion 170 Abduction 170 External Rotation at 0 degrees Abduction 80 Internal Rotation 50 Right Shoulder ROM WFL Yes Testing Position Sitting Flexion 160 Extension 160 External Rotation at 90 degrees 70 Abduction Internal Rotation 45 Shoulder ROM Limitations Shoulder ROM Limitations Soft Tissue Tightness Pain PT-OP-L Special Tests Start: 01/09/18 14:22 Freq: Status: Active Protocol: Document 01/09/18 11:00 EA (Rec: 01/10/18 13:45 EA [id number]) Special Tests Shoulder Special Tests Elevation Impingement Test Results Right positive Lift-Off Rotator Cuff Test Results Right positive Xiao Tahir Impingement Test Results Right positive Empty Can Test Results Right positive PT-OP-M Strength Start: 01/09/18 14:22 Freq: Status: Active Protocol: Document 01/09/18 11:00 EA (Rec: 01/10/18 13:45 EA [id number]) Shoulder Strength Shoulder Manual Muscle Testing Right Flexion 4- Good- Extension 4+ Good+ Abduction (C5) 4- Good- External Rotation 4- Good- Internal Rotation 4- Good- PT-OP-Q Treatments Start: 01/09/18 14:22 Freq: Status: Active Protocol: Document 02/01/18 14:38 EA (Rec: 02/01/18 15:15 EA [id number]) Cardio Equipment Upper Body Ergometer (UBE) Duration (Minutes) 6 Height 3-7 Therapeutic Exercises Prone Exercises 1 Prone Exercise Name Shoulder extension/Flexion/ABD Side right Equipment Used 2lbs AW Reps/Minutes 10 reps x 2 Sidelying Exercises 1 Sidelying Exercise Name SL to left DH shoulder ER, ABD , Horiz ABD Side right Equipment Used DB Reps/Minutes x 15 reps x 2 Sitting Exercises 1 Sitting Exercise Name Shoulder pully: Flex/ABD Reps/Minutes x 15 reps x 2 Standing Exercises 4 Standing Exercise Name wall slides Resistance 2-4# aw TO WRIST Reps/Minutes 10 x 3 sets Comments V-Front -rectangle 3 Standing Exercise Name Pain free range: shoulder ER/ IR Side right Resistance BTB/level 1 2 Standing Exercise Name BTB shoulder row Side bilateral Reps/Minutes x 12 reps x 2 1 Standing Exercise Name BTB shoulder extension Side bilateral Reps/Minutes x12 reps x 2 Manual Therapy Treatment Soft Tissue Mobilization 1 Body Location Right Infraspinatus/ TM tendon Mobilization Type Cross-Friction Intensity/Depth Moderate Comments performed after US PT-OP-R Modalities Start: 01/09/18 14:22 Freq: Status: Active Protocol: Document 02/01/18 14:38 EA (Rec: 02/01/18 15:15 EA [id number]) Electric Stimulation Electric Stimulation Interferential Current (IFC) Body Location right shoulder Duration (Minutes) 15 Combined With Heat/Cold Cold Pack Hot Pack/Cold Pack Treatment Cold Pack Patient Position Hooklying Treatment Duration (minutes) 12 Patient Tolerance Good Ultrasound Therapy Treatment Right Shoulder Treatment Duration (minutes) 5 Patient Position Sidelying Coupling Medium Ultrasound Gel Applicator Size (cm2) 8 Mode Setting Continuous Intensity Setting (w/cm2) 1.5 PT-OP-T Assessment and Plan Start: 01/09/18 14:22 Freq: Status: Active Protocol: Document 02/01/18 14:38 EA (Rec: 02/01/18 15:15 EA [id number]) Physical Therapy Assessment Goals Three Impairment Subjective right shoulder pain of 4/10 with overhead movement Senior Audit Manager Goal (LTG) Patient will perform overhead movement with Less than 1/10 PS. LTG Duration 4 /10 Two Impairment Right shoulder ER/IR, ABD, Flexion limitation Senior Audit Manager Goal (LTG) Patient will exhibit Normal ROM with R shoulder ABD/ Flexion/ ER/IR LTG Duration 4 wks One Impairment Quickdash score of 36 Snf Goal (LTG) Patient will have QuickDash score of < 15 LTG Duration 4 wks Assessment Summary Assessment Patient had improved ROM with resistance. Patient cont. to progress. Physical Therapy Plan Frequency and Duration Frequency of Treatment 2x/Week Plan of Care Start Date 01/09/18 Plan of Care End Date 02/27/18 Therapeutic Interventions Therapeutic Interventions Home Exercise Program Joint Mobilizations Manual Therapy Patient/Caregiver Education Self-Care/Home Management Soft Tissue Mobilization Taping Therapeutic Activities Therapeutic Exercises Modalities Cold Pack/Ice Massage Electric Stimulation Hot Packs Next Visit Focus/Plan Next Note Type Treatment Note Next Visit Plan Functional exercises
--- NOTE | 2018-02-05 12:10 | PT.OTN ---
Current Diagnoses Other chronic pain (02/05/18) Pain in right shoulder (02/05/18) Pain in left shoulder (02/05/18) Physical Therapy Treatment Note PT-OP-A Visit Information Start: 01/09/18 14:22 Freq: Status: Active Protocol: Document 02/05/18 09:00 EA (Rec: 02/05/18 09:43 EA [id number]) Out-Patient Physical Therapy Visit Information Visit Information Visit Type Treatment Note Visit Start Time 09:00 Visit Stop Time 09:53 Visit Number 8 PT-OP-B Current Condition Start: 01/09/18 14:22 Freq: Status: Active Protocol: Document 01/09/18 11:00 EA (Rec: 01/10/18 10:32 EA [id number]) Current Condition History of Current Condition Onset Date 04/2017 Current Complaints Bilateral shoulder pain R > L rated 4/10 with activity History of Current Condition Patient condition is a relapsed which initially started 7-8 months ago which he had 80% recovery with the help of PT on May of 2017 . Patient reports he followed HEP protocol religiosly until August/September of this year when he felt that pain to right shoulder was not subsiding. Prior Treatments and Tests Formal PT 7-8 months ago Future Testing and Treatments Planned none Treatment Goals Patient/Caregiver Goals Wants to redues shoulder pain and be able to perform overhead movement tasks without or with less difficulty. Prior Functional Status Baseline Function- ADL's Independent Current Functional Impairments (Reported) Functional Limitations- ADL's Mod difficulty with ADLS's with overhead movement. PT-OP-C Subjective Start: 01/09/18 14:22 Freq: Status: Active Protocol: Document 02/05/18 09:00 EA (Rec: 02/05/18 09:43 EA [id number]) OP-PT Subjective Patient Comments Patient Comments Pt reports right shoulder is getting better; states pain frequency is mujch less. Reports he has been compliant with HEP Patient Reported Progress Improving PT-OP-E Functional Tests Start: 01/09/18 14:22 Freq: Status: Active Protocol: Document 01/09/18 11:00 EA (Rec: 01/10/18 13:45 EA [id number]) Functional Tests Brittaniey's Scratch Test Action 1: The subject is instructed to touch the opposite shoulder with his/her hand. This motion checks Glenohumeral adduction, internal rotation , horizontal adduction and scapular protraction Action 2: The subject is instructed to place his/her arm overhead and reach behind the neck to touch his/her upper back. This motion checks Glenohumeral abduction, external rotation and scapular upward rotation and elevation. Action 3: The subject puts his/her hand on the lower back and reaches upward as far as possible. This motion checks glenohumeral adduction, internal rotation and scapular retraction with downward rotation Action 2- Left T2 Action 2- Right C7 Action 3- Left T10 Action 3- Right L1 PT-OP-K Range of Motion Start: 01/09/18 14:22 Freq: Status: Active Protocol: Document 01/09/18 11:00 EA (Rec: 01/10/18 13:45 EA [id number]) Shoulder Goniometric Range of Motion Shoulder Measured in Degrees Left Active Testing Position Sitting Flexion 170 Abduction 170 External Rotation at 0 degrees Abduction 80 Internal Rotation 50 Right Shoulder ROM WFL Yes Testing Position Sitting Flexion 160 Extension 160 External Rotation at 90 degrees 70 Abduction Internal Rotation 45 Shoulder ROM Limitations Shoulder ROM Limitations Soft Tissue Tightness Pain PT-OP-L Special Tests Start: 01/09/18 14:22 Freq: Status: Active Protocol: Document 01/09/18 11:00 EA (Rec: 01/10/18 13:45 EA [id number]) Special Tests Shoulder Special Tests Elevation Impingement Test Results Right positive Lift-Off Rotator Cuff Test Results Right positive Xiao Tahir Impingement Test Results Right positive Empty Can Test Results Right positive PT-OP-M Strength Start: 01/09/18 14:22 Freq: Status: Active Protocol: Document 01/09/18 11:00 EA (Rec: 01/10/18 13:45 EA [id number]) Shoulder Strength Shoulder Manual Muscle Testing Right Flexion 4- Good- Extension 4+ Good+ Abduction (C5) 4- Good- External Rotation 4- Good- Internal Rotation 4- Good- PT-OP-Q Treatments Start: 01/09/18 14:22 Freq: Status: Active Protocol: Document 02/05/18 09:00 EA (Rec: 02/05/18 09:43 EA [id number]) Cardio Equipment Upper Body Ergometer (UBE) Duration (Minutes) 6 Height 3-7 Therapeutic Exercises Prone Exercises 1 Prone Exercise Name Shoulder extension/Flexion/ABD Side right Equipment Used 2lbs AW Reps/Minutes 10 reps x 2 Sidelying Exercises 1 Sidelying Exercise Name SL to left DH shoulder ER, ABD , Horiz ABD Side right Equipment Used DB Reps/Minutes x 15 reps x 2 Standing Exercises 5 Standing Exercise Name AROM: diagonal pattern 4 Standing Exercise Name wall slides Resistance 2-4# aw TO WRIST Reps/Minutes 10 x 3 sets Comments V-Front -rectangle 3 Standing Exercise Name Pain free range: shoulder ER/ IR Side right Resistance BTB/level 1 2 Standing Exercise Name BTB shoulder row Side bilateral Reps/Minutes x 12 reps x 2 1 Standing Exercise Name T shoulder extension Side bilateral Reps/Minutes x12 reps x 2 Manual Therapy Treatment Soft Tissue Mobilization 1 Body Location Right Infraspinatus/ TM tendon Mobilization Type Cross-Friction Intensity/Depth Moderate Comments performed after US PT-OP-R Modalities Start: 01/09/18 14:22 Freq: Status: Active Protocol: Document 02/05/18 09:00 EA (Rec: 02/05/18 09:43 EA [id number]) Electric Stimulation Electric Stimulation Interferential Current (IFC) Body Location right shoulder Duration (Minutes) 15 Combined With Heat/Cold Cold Pack Ultrasound Therapy Treatment Right Shoulder Treatment Duration (minutes) 5 Patient Position Sidelying Coupling Medium Ultrasound Gel Applicator Size (cm2) 8 Mode Setting Continuous Intensity Setting (w/cm2) 1.5 PT-OP-T Assessment and Plan Start: 01/09/18 14:22 Freq: Status: Active Protocol: Document 02/05/18 09:00 EA (Rec: 02/05/18 09:43 EA [id number]) Physical Therapy Assessment Assessment Summary Assessment Diagonal pattern increase pain but tolerated..Patient cont to progress. Physical Therapy Plan Next Visit Focus/Plan Next Note Type Treatment Note Next Visit Plan Cont with current plan.
--- NOTE | 2018-02-08 10:08 | PT.OTN ---
Current Diagnoses Other chronic pain (02/08/18) Pain in right shoulder (02/08/18) Pain in left shoulder (02/08/18) Physical Therapy Treatment Note PT-OP-A Visit Information Start: 01/09/18 14:22 Freq: Status: Active Protocol: Document 02/08/18 07:35 EA (Rec: 02/08/18 08:16 EA [id number]) Out-Patient Physical Therapy Visit Information Visit Information Visit Type Treatment Note Visit Start Time 07:30 Visit Stop Time 08:15 Total Visit Minutes 53 Visit Number 9 Evaluation Information Evaluation Date 01/09/18 PT-OP-B Current Condition Start: 01/09/18 14:22 Freq: Status: Active Protocol: Document 01/09/18 11:00 EA (Rec: 01/10/18 10:32 EA [id number]) Current Condition History of Current Condition Onset Date 04/2017 Current Complaints Bilateral shoulder pain R > L rated 4/10 with activity History of Current Condition Patient condition is a relapsed which initially started 7-8 months ago which he had 80% recovery with the help of PT on May of 2017 . Patient reports he followed HEP protocol religiously until August/September of this year when he felt that pain to right shoulder was not subsiding. Prior Treatments and Tests Formal PT 7-8 months ago Future Testing and Treatments Planned none Treatment Goals Patient/Caregiver Goals Wants to reduce shoulder pain and be able to perform overhead movement tasks without or with less difficulty. Prior Functional Status Baseline Function- ADL's Independent Current Functional Impairments (Reported) Functional Limitations- ADL's Mod difficulty with ADLS's with overhead movement. PT-OP-C Subjective Start: 01/09/18 14:22 Freq: Status: Active Protocol: Document 02/08/18 07:35 EA (Rec: 02/08/18 08:16 EA [id number]) OP-PT Subjective Patient Comments Patient Comments Pt reports left shoulder was sore after the session;denies sharp pain; overall he feels improving Patient Reported Progress Improving PT-OP-E Functional Tests Start: 01/09/18 14:22 Freq: Status: Active Protocol: Document 01/09/18 11:00 EA (Rec: 01/10/18 13:45 EA [id number]) Functional Tests Izzy's Scratch Test Action 1: The subject is instructed to touch the opposite shoulder with his/her hand. This motion checks Glenohumeral adduction, internal rotation , horizontal adduction and scapular protraction Action 2: The subject is instructed to place his/her arm overhead and reach behind the neck to touch his/her upper back. This motion checks Glenohumeral abduction, external rotation and scapular upward rotation and elevation. Action 3: The subject puts his/her hand on the lower back and reaches upward as far as possible. This motion checks glenohumeral adduction, internal rotation and scapular retraction with downward rotation Action 2- Left T2 Action 2- Right C7 Action 3- Left T10 Action 3- Right L1 PT-OP-K Range of Motion Start: 01/09/18 14:22 Freq: Status: Active Protocol: Document 01/09/18 11:00 EA (Rec: 01/10/18 13:45 EA [id number]) Shoulder Goniometric Range of Motion Shoulder Measured in Degrees Left Active Testing Position Sitting Flexion 170 Abduction 170 External Rotation at 0 degrees Abduction 80 Internal Rotation 50 Right Shoulder ROM WFL Yes Testing Position Sitting Flexion 160 Extension 160 External Rotation at 90 degrees 70 Abduction Internal Rotation 45 Shoulder ROM Limitations Shoulder ROM Limitations Soft Tissue Tightness Pain PT-OP-L Special Tests Start: 01/09/18 14:22 Freq: Status: Active Protocol: Document 01/09/18 11:00 EA (Rec: 01/10/18 13:45 EA [id number]) Special Tests Shoulder Special Tests Elevation Impingement Test Results Right positive Lift-Off Rotator Cuff Test Results Right positive Xiao Tahir Impingement Test Results Right positive Empty Can Test Results Right positive PT-OP-M Strength Start: 01/09/18 14:22 Freq: Status: Active Protocol: Document 01/09/18 11:00 EA (Rec: 01/10/18 13:45 EA [id number]) Shoulder Strength Shoulder Manual Muscle Testing Right Flexion 4- Good- Extension 4+ Good+ Abduction (C5) 4- Good- External Rotation 4- Good- Internal Rotation 4- Good- PT-OP-Q Treatments Start: 01/09/18 14:22 Freq: Status: Active Protocol: Document 02/08/18 07:35 EA (Rec: 02/08/18 08:16 EA [id number]) Cardio Equipment Upper Body Ergometer (UBE) Duration (Minutes) 6 Height 3-7 Therapeutic Exercises Prone Exercises 1 Prone Exercise Name Shoulder extension/Flexion/ABD Side right Equipment Used 2lbs AW Reps/Minutes 10 reps x 2 Sidelying Exercises 1 Sidelying Exercise Name SL to left DH shoulder ER, ABD , Horiz ABD Side right Equipment Used DB Reps/Minutes x 15 reps x 2 Sitting Exercises 1 Sitting Exercise Name 1-2 lbs db shoulder D1,D2 flexion/ext Reps/Minutes x 10 reps x 2sets Standing Exercises 5 Standing Exercise Name AROM: diagonal pattern Side right 4 Standing Exercise Name wall slides Side bilateral Resistance 2-4# aw TO WRIST Reps/Minutes 10 x 3 sets Comments V-Front -rectangle 3 Standing Exercise Name Pain free range: shoulder ER/ IR Side right Resistance BTB/level 1 2 Standing Exercise Name BTB shoulder row Side bilateral Reps/Minutes x 12 reps x 2 1 Standing Exercise Name T shoulder extension Side bilateral Reps/Minutes x12 reps x 2 Manual Therapy Treatment Soft Tissue Mobilization 1 Body Location Right Infraspinatus/ TM tendon Mobilization Type Cross-Friction Intensity/Depth Moderate Comments performed after US Self-Care/Home Management Treatment Education Patient Education Home Exercise Program Pain Management Posture PT-OP-R Modalities Start: 01/09/18 14:22 Freq: Status: Active Protocol: Document 02/08/18 07:35 EA (Rec: 02/08/18 08:16 EA [id number]) Electric Stimulation Electric Stimulation Interferential Current (IFC) Body Location right shoulder Duration (Minutes) 15 Combined With Heat/Cold Cold Pack Hot Pack/Cold Pack Treatment Cold Pack Patient Position Hooklying Treatment Duration (minutes) 12 Patient Tolerance Good Ultrasound Therapy Treatment Right Shoulder Treatment Duration (minutes) 5 Patient Position Sidelying Coupling Medium Ultrasound Gel Applicator Size (cm2) 8 Mode Setting Continuous Intensity Setting (w/cm2) 1.5 PT-OP-T Assessment and Plan Start: 01/09/18 14:22 Freq: Status: Active Protocol: Document 02/08/18 07:35 EA (Rec: 02/08/18 08:16 EA [id number]) Physical Therapy Assessment Goals Three Impairment Subjective right shoulder pain of 4/10 with overhead movement Sign Writer Hand Goal (LTG) Patient will perfrom overhead movement with Less than 1/10 PS. LTG Duration 4 /10 Two Impairment Right shoulder ER/IR, ABD, Flexion limitation Sign Writer Hand Goal (LTG) Patient will exhibit Normal ROM with R shoulder ABD/ Flexion/ ER/IR LTG Duration 4 wks One Impairment Quickdash score of 36 Jail Goal (LTG) Patient will have QuickDash score of < 15 LTG Duration 4 wks Assessment Summary Assessment Patient tolerated functional diagonal exercises, progress as tolerated. Physical Therapy Plan Frequency and Duration Plan of Care Start Date 01/09/18 Plan of Care End Date 02/27/18 Therapeutic Interventions Therapeutic Interventions Home Exercise Program Joint Mobilizations Manual Therapy Patient/Caregiver Education Self-Care/Home Management Soft Tissue Mobilization Taping Therapeutic Activities Therapeutic Exercises Modalities Cold Pack/Ice Massage Electric Stimulation Hot Packs Next Visit Focus/Plan Next Note Type Treatment Note Next Visit Plan Cont. with current plan.
--- NOTE | 2018-02-14 15:25 | PT.OTN ---
Current Diagnoses Other chronic pain (02/14/18) Pain in right shoulder (02/14/18) Pain in left shoulder (02/14/18) Physical Therapy Treatment Note PT-OP-A Visit Information Start: 01/09/18 14:22 Freq: Status: Active Protocol: Document 02/14/18 12:47 EA (Rec: 02/14/18 12:58 EA [id number]) Out-Patient Physical Therapy Visit Information Visit Information Visit Type Treatment Note Visit Note Progress note performed to this date. Visit Start Time 09:45 Visit Stop Time 10:38 Total Visit Minutes 53 Visit Number 10 PT-OP-B Current Condition Start: 01/09/18 14:22 Freq: Status: Active Protocol: Document 01/09/18 11:00 EA (Rec: 01/10/18 10:32 EA [id number]) Current Condition History of Current Condition Onset Date 04/2017 Current Complaints Bilateral shoulder pain R > L rated 4/10 with activity History of Current Condition Patient condition is a relapsed which initially started 7-8 months ago which he had 80% recovery with the help of PT on May of 2017 . Patient reports he followed HEP protocol religiosly until August/September of this year when he felt that pain to right shoulder was not subsiding. Prior Treatments and Tests Formal PT 7-8 months ago Future Testing and Treatments Planned none Treatment Goals Patient/Caregiver Goals Wants to redues shoulder pain and be able to perform overhead movement tasks without or with less difficulty. Prior Functional Status Baseline Function- ADL's Independent Current Functional Impairments (Reported) Functional Limitations- ADL's Mod difficulty with ADLS's with overhead movement. PT-OP-C Subjective Start: 01/09/18 14:22 Freq: Status: Active Protocol: Document 02/14/18 12:47 EA (Rec: 02/14/18 12:58 EA [id number]) OP-PT Subjective Patient Comments Patient Comments Pt reports that pain frequency and intensity is quite improve at this time though heforgot to place ice in the past 2 days. Patient Reported Progress Improving Patient Questionnaires Quick Dash- Upper Extremity Quick Dash UE Impairment 1 to 19% Impaired (Score 1-19) PT-OP-E Functional Tests Start: 01/09/18 14:22 Freq: Status: Active Protocol: Document 01/09/18 11:00 EA (Rec: 01/10/18 13:45 EA [id number]) Functional Tests Apley's Scratch Test Action 1: The subject is instructed to touch the opposite shoulder with his/her hand. This motion checks Glenohumeral adduction, internal rotation , horizontal adduction and scapular protraction Action 2: The subject is instructed to place his/her arm overhead and reach behind the neck to touch his/her upper back. This motion checks Glenohumeral abduction, external rotation and scapular upward rotation and elevation. Action 3: The subject puts his/her hand on the lower back and reaches upward as far as possible. This motion checks glenohumeral adduction, internal rotation and scapular retraction with downward rotation Action 2- Left T2 Action 2- Right C7 Action 3- Left T10 Action 3- Right L1 PT-OP-K Range of Motion Start: 01/09/18 14:22 Freq: Status: Active Protocol: Document 01/09/18 11:00 EA (Rec: 01/10/18 13:45 EA [id number]) Shoulder Goniometric Range of Motion Shoulder Measured in Degrees Left Active Testing Position Sitting Flexion 170 Abduction 170 External Rotation at 0 degrees Abduction 80 Internal Rotation 50 Right Shoulder ROM WFL Yes Testing Position Sitting Flexion 160 Extension 160 External Rotation at 90 degrees 70 Abduction Internal Rotation 45 Shoulder ROM Limitations Shoulder ROM Limitations Soft Tissue Tightness Pain PT-OP-L Special Tests Start: 01/09/18 14:22 Freq: Status: Active Protocol: Document 01/09/18 11:00 EA (Rec: 01/10/18 13:45 EA [id number]) Special Tests Shoulder Special Tests Elevation Impingement Test Results Right positive Lift-Off Rotator Cuff Test Results Right positive Xiao Tahir Impingement Test Results Right positive Empty Can Test Results Right positive PT-OP-M Strength Start: 01/09/18 14:22 Freq: Status: Active Protocol: Document 01/09/18 11:00 EA (Rec: 01/10/18 13:45 EA [id number]) Shoulder Strength Shoulder Manual Muscle Testing Right Flexion 4- Good- Extension 4+ Good+ Abduction (C5) 4- Good- External Rotation 4- Good- Internal Rotation 4- Good- PT-OP-Q Treatments Start: 01/09/18 14:22 Freq: Status: Active Protocol: Document 02/14/18 12:47 EA (Rec: 02/14/18 12:58 EA [id number]) Cardio Equipment Upper Body Ergometer (UBE) Duration (Minutes) 6 Height 5-7 Therapeutic Exercises Prone Exercises 1 Prone Exercise Name Shoulder extension/Flexion/ABD Side right Equipment Used 5lbs AW Reps/Minutes 10 reps x 2 Sidelying Exercises 1 Sidelying Exercise Name SL to left DH shoulder ER, ABD , Horiz ABD Side right Equipment Used DB Reps/Minutes x 15 reps x 2 Sitting Exercises 1 Sitting Exercise Name 1-2 lbs db shoulder D1,D2 flexion/ext Reps/Minutes x 10 reps x 2sets Standing Exercises 6 Standing Exercise Name standing DB shoulder side, front raises and hshoulder press Resistance 2-4 lbs Reps/Minutes x 12 reps x 2 sets 5 Standing Exercise Name AROM: diagonal pattern Side right 4 Standing Exercise Name wall slides Side bilateral Resistance 2-6# aw TO WRIST Reps/Minutes 10 x 3 sets Comments V-Front -rectangle 3 Standing Exercise Name Pain free range: shoulder ER/ IR Side right Resistance BTB/level 1 2 Standing Exercise Name BTB shoulder row Side bilateral Reps/Minutes x 12 reps x 2 1 Standing Exercise Name T shoulder extension Side bilateral Reps/Minutes x12 reps x 2 Manual Therapy Treatment Soft Tissue Mobilization 1 Body Location Right Infraspinatus/ TM tendon Mobilization Type Cross-Friction Intensity/Depth Moderate Comments performed after US PT-OP-R Modalities Start: 01/09/18 14:22 Freq: Status: Active Protocol: Document 02/14/18 12:47 EA (Rec: 02/14/18 12:58 EA [id number]) Electric Stimulation Electric Stimulation Interferential Current (IFC) Body Location right shoulder Duration (Minutes) 15 Combined With Heat/Cold Cold Pack Ultrasound Therapy Treatment Right Shoulder Treatment Duration (minutes) 5 Patient Position Sidelying Coupling Medium Ultrasound Gel Applicator Size (cm2) 8 Mode Setting Continuous Intensity Setting (w/cm2) 1.5 PT-OP-T Assessment and Plan Start: 01/09/18 14:22 Freq: Status: Active Protocol: Document 02/14/18 12:47 EA (Rec: 02/14/18 12:58 EA [id number]) Physical Therapy Assessment Assessment Summary Assessment Patient demonstrates improvement to both symptoms and functional mobility at this time. Patient will cont to benefit with skilled PT. Cont with current plan. Advance as tolerated. Physical Therapy Plan Next Visit Focus/Plan Next Note Type Treatment Note Next Visit Plan Advance as tolerated
--- NOTE | 2018-02-22 09:46 | PT.OTN ---
Current Diagnoses Other chronic pain (02/22/18) Pain in right shoulder (02/22/18) Pain in left shoulder (02/22/18) Physical Therapy Treatment Note PT-OP-A Visit Information Start: 01/09/18 14:22 Freq: Status: Active Protocol: Document 02/22/18 09:03 EA (Rec: 02/22/18 09:40 EA [id number]) Out-Patient Physical Therapy Visit Information Visit Information Visit Type Treatment Note Visit Start Time 09:00 Visit Stop Time 09:50 Total Visit Minutes 50 Visit Number 11 PT-OP-B Current Condition Start: 01/09/18 14:22 Freq: Status: Active Protocol: Document 01/09/18 11:00 EA (Rec: 01/10/18 10:32 EA [id number]) Current Condition History of Current Condition Onset Date 04/2017 Current Complaints Bilateral shoulder pain R > L rated 4/10 with activity History of Current Condition Patient condition is a relapsed which initially started 7-8 months ago which he had 80% recovery with the help of PT on May of 2017 . Patient reports he followed HEP protocol religiosly until August/September of this year when he felt that pain to right shoulder was not subsiding. Prior Treatments and Tests Formal PT 7-8 months ago Future Testing and Treatments Planned none Treatment Goals Patient/Caregiver Goals Wants to redues shoulder pain and be able to perform overhead movement tasks without or with less difficulty. Prior Functional Status Baseline Function- ADL's Independent Current Functional Impairments (Reported) Functional Limitations- ADL's Mod difficulty with ADLS's with overhead movement. PT-OP-C Subjective Start: 01/09/18 14:22 Freq: Status: Active Protocol: Document 02/22/18 09:03 EA (Rec: 02/22/18 09:40 EA [id number]) OP-PT Subjective Patient Comments Patient Comments Pt reports other than circular wall slide exercise all movement is pain free. Reports overall he is improving functionally. PT-OP-E Functional Tests Start: 01/09/18 14:22 Freq: Status: Active Protocol: Document 01/09/18 11:00 EA (Rec: 01/10/18 13:45 EA [id number]) Functional Tests Brittaniey's Scratch Test Action 1: The subject is instructed to touch the opposite shoulder with his/her hand. This motion checks Glenohumeral adduction, internal rotation , horizontal adduction and scapular protraction Action 2: The subject is instructed to place his/her arm overhead and reach behind the neck to touch his/her upper back. This motion checks Glenohumeral abduction, external rotation and scapular upward rotation and elevation. Action 3: The subject puts his/her hand on the lower back and reaches upward as far as possible. This motion checks glenohumeral adduction, internal rotation and scapular retraction with downward rotation Action 2- Left T2 Action 2- Right C7 Action 3- Left T10 Action 3- Right L1 PT-OP-K Range of Motion Start: 01/09/18 14:22 Freq: Status: Active Protocol: Document 01/09/18 11:00 EA (Rec: 01/10/18 13:45 EA [id number]) Shoulder Goniometric Range of Motion Shoulder Measured in Degrees Left Active Testing Position Sitting Flexion 170 Abduction 170 External Rotation at 0 degrees Abduction 80 Internal Rotation 50 Right Shoulder ROM WFL Yes Testing Position Sitting Flexion 160 Extension 160 External Rotation at 90 degrees 70 Abduction Internal Rotation 45 Shoulder ROM Limitations Shoulder ROM Limitations Soft Tissue Tightness Pain PT-OP-L Special Tests Start: 01/09/18 14:22 Freq: Status: Active Protocol: Document 01/09/18 11:00 EA (Rec: 01/10/18 13:45 EA [id number]) Special Tests Shoulder Special Tests Elevation Impingement Test Results Right positive Lift-Off Rotator Cuff Test Results Right positive Xiao [place]ir Impingement Test Results Right positive Empty Can Test Results Right positive PT-OP-M Strength Start: 01/09/18 14:22 Freq: Status: Active Protocol: Document 01/09/18 11:00 EA (Rec: 01/10/18 13:45 EA [id number]) Shoulder Strength Shoulder Manual Muscle Testing Right Flexion 4- Good- Extension 4+ Good+ Abduction (C5) 4- Good- External Rotation 4- Good- Internal Rotation 4- Good- PT-OP-Q Treatments Start: 01/09/18 14:22 Freq: Status: Active Protocol: Document 02/22/18 09:03 EA (Rec: 02/22/18 09:40 EA [id number]) Cardio Equipment Upper Body Ergometer (UBE) Duration (Minutes) 6 Height 5-7.5 Therapeutic Exercises Prone Exercises 1 Prone Exercise Name Shoulder extension/Flexion/ABD Side right Equipment Used T-bar 5lbs AW Reps/Minutes 10 reps x 2 Sidelying Exercises 1 Sidelying Exercise Name SL to left DH shoulder ER, ABD , Horiz ABD Side right Equipment Used DB Reps/Minutes x 15 reps x 2 Sitting Exercises 2 Sitting Exercise Name Adjusted cable low and mid row , pull down. Side bilateral Reps/Minutes x 12 reps x 2 sets each 1 Sitting Exercise Name 1-2 lbs db shoulder D1,D2 flexion/ext Reps/Minutes x 10 reps x 2sets Standing Exercises 6 Standing Exercise Name standing DB shoulder side, front raises and hshoulder press Resistance 2-4 lbs Reps/Minutes x 12 reps x 2 sets 5 Standing Exercise Name AROM: diagonal pattern Side right 4 Standing Exercise Name wall slides Side bilateral Resistance 2-6# aw TO WRIST Reps/Minutes 10 x 3 sets Comments V-Front -rectangle 3 Standing Exercise Name Pain free range: shoulder ER/ IR Side right Resistance BTB/level 1 2 Standing Exercise Name BTB shoulder row Side bilateral Reps/Minutes x 12 reps x 2 1 Standing Exercise Name T shoulder extension Side bilateral Reps/Minutes x12 reps x 2 Manual Therapy Treatment Soft Tissue Mobilization 1 Body Location Right Infraspinatus/ TM tendon Mobilization Type Cross-Friction Intensity/Depth Moderate Comments performed after US PT-OP-R Modalities Start: 01/09/18 14:22 Freq: Status: Active Protocol: Document 02/22/18 09:03 EA (Rec: 02/22/18 09:40 EA [id number]) Electric Stimulation Electric Stimulation Interferential Current (IFC) Body Location right shoulder Duration (Minutes) 15 Combined With Heat/Cold Cold Pack PT-OP-T Assessment and Plan Start: 01/09/18 14:22 Freq: Status: Active Protocol: Document 02/22/18 09:03 EA (Rec: 02/22/18 09:40 EA [id number]) Physical Therapy Assessment Assessment Summary Assessment Tolerated tretament well. Physical Therapy Plan Next Visit Focus/Plan Next Note Type Treatment Note Next Visit Plan Advance as tolerated
--- NOTE | 2018-02-27 13:22 | PT.OTN ---
Current Diagnoses Other chronic pain (02/27/18) Pain in right shoulder (02/27/18) Pain in left shoulder (02/27/18) Physical Therapy Treatment Note PT-OP-A Visit Information Start: 01/09/18 14:22 Freq: Status: Active Protocol: Document 02/27/18 09:08 EA (Rec: 02/27/18 09:47 EA [id number]) Out-Patient Physical Therapy Visit Information Visit Information Visit Type Treatment Note Visit Note Discharged today Visit Start Time 09:00 Visit Stop Time 09:40 Total Visit Minutes 40 Visit Number 12 PT-OP-B Current Condition Start: 01/09/18 14:22 Freq: Status: Active Protocol: Document 01/09/18 11:00 EA (Rec: 01/10/18 10:32 EA [id number]) Current Condition History of Current Condition Onset Date 04/2017 Current Complaints Bilateral shoulder pain R > L rated 4/10 with activity History of Current Condition Patient condition is a relapsed which initially started 7-8 months ago which he had 80% recovery with the help of PT on May of 2017 . Patient reports he followed HEP protocol religiosly until August/September of this year when he felt that pain to right shoulder was not subsiding. Prior Treatments and Tests Formal PT 7-8 months ago Future Testing and Treatments Planned none Treatment Goals Patient/Caregiver Goals Wants to redues shoulder pain and be able to perform overhead movement tasks without or with less difficulty. Prior Functional Status Baseline Function- ADL's Independent Current Functional Impairments (Reported) Functional Limitations- ADL's Mod difficulty with ADLS's with overhead movement. PT-OP-C Subjective Start: 01/09/18 14:22 Freq: Status: Active Protocol: Document 02/27/18 09:08 EA (Rec: 02/27/18 09:47 EA [id number]) OP-PT Subjective Patient Comments Patient Comments Pt reports able to perform functional movement with very occasional discomfort only. Patient wish to be discharged today and want to cont. HEP. Patient Reported Progress Improving Patient Questionnaires Quick Dash- Upper Extremity Quick Dash UE Impairment 1 to 19% Impaired (Score 1-19) PT-OP-E Functional Tests Start: 01/09/18 14:22 Freq: Status: Active Protocol: Document 02/27/18 09:08 EA (Rec: 02/27/18 09:47 EA [id number]) Functional Tests Apley's Scratch Test Action 1: The subject is instructed to touch the opposite shoulder with his/her hand. This motion checks Glenohumeral adduction, internal rotation , horizontal adduction and scapular protraction Action 2: The subject is instructed to place his/her arm overhead and reach behind the neck to touch his/her upper back. This motion checks Glenohumeral abduction, external rotation and scapular upward rotation and elevation. Action 3: The subject puts his/her hand on the lower back and reaches upward as far as possible. This motion checks glenohumeral adduction, internal rotation and scapular retraction with downward rotation Action 2- Left T2 Action 2- Right T2 Action 3- Left T10 Action 3- Right T10 PT-OP-K Range of Motion Start: 01/09/18 14:22 Freq: Status: Active Protocol: Document 01/09/18 11:00 EA (Rec: 01/10/18 13:45 EA [id number]) Shoulder Goniometric Range of Motion Shoulder Measured in Degrees Left Active Testing Position Sitting Flexion 170 Abduction 170 External Rotation at 0 degrees Abduction 80 Internal Rotation 50 Right Shoulder ROM WFL Yes Testing Position Sitting Flexion 160 Extension 160 External Rotation at 90 degrees 70 Abduction Internal Rotation 45 Shoulder ROM Limitations Shoulder ROM Limitations Soft Tissue Tightness Pain PT-OP-L Special Tests Start: 01/09/18 14:22 Freq: Status: Active Protocol: Document 01/09/18 11:00 EA (Rec: 01/10/18 13:45 EA [id number]) Special Tests Shoulder Special Tests Elevation Impingement Test Results Right positive Lift-Off Rotator Cuff Test Results Right positive Xiao [place]ir Impingement Test Results Right positive Empty Can Test Results Right positive PT-OP-M Strength Start: 01/09/18 14:22 Freq: Status: Active Protocol: Document 01/09/18 11:00 EA (Rec: 01/10/18 13:45 EA [id number]) Shoulder Strength Shoulder Manual Muscle Testing Right Flexion 4- Good- Extension 4+ Good+ Abduction (C5) 4- Good- External Rotation 4- Good- Internal Rotation 4- Good- PT-OP-Q Treatments Start: 01/09/18 14:22 Freq: Status: Active Protocol: Document 02/22/18 09:03 EA (Rec: 02/22/18 09:40 EA [id number]) Cardio Equipment Upper Body Ergometer (UBE) Duration (Minutes) 7 Height 5-7.5 Therapeutic Exercises Prone Exercises 1 Prone Exercise Name Shoulder extension/Flexion/ABD Side right Equipment Used 1-2 lbs Reps/Minutes 10 reps x 2 Comments HEP Sidelying Exercises 1 Sidelying Exercise Name SL to left DH shoulder ER, ABD , Horiz ABD Side right Equipment Used DB Reps/Minutes x 15 reps x 2 Sitting Exercises 2 Sitting Exercise Name Adjusted cable low and mid row , pull down. Side bilateral Reps/Minutes x 12 reps x 2 sets each 1 Sitting Exercise Name 1-2 lbs db shoulder D1,D2 flexion/ext Reps/Minutes x 10 reps x 2sets Standing Exercises 6 Standing Exercise Name standing DB shoulder side, front raises and hshoulder press Resistance 2-4 lbs Reps/Minutes x 12 reps x 2 sets 5 Standing Exercise Name AROM: diagonal pattern Side right 4 Standing Exercise Name wall slides Side bilateral Resistance 2-6# aw TO WRIST Reps/Minutes 10 x 3 sets Comments HEP 3 Standing Exercise Name Pain free range: shoulder ER/ IR Side right Resistance BTB/level 1 Comments HEP 2 Standing Exercise Name BTB shoulder row Side bilateral Reps/Minutes x 12 reps x 2 Comments HEP 1 Standing Exercise Name T shoulder extension Side bilateral Reps/Minutes x12 reps x 2 Comments HEP Manual Therapy Treatment Soft Tissue Mobilization 1 Body Location Right Infraspinatus/ TM tendon Mobilization Type Cross-Friction Intensity/Depth Moderate Comments performed after US Self-Care/Home Management Treatment Education Patient Education Home Exercise Program Joint Protection Pain Management Safety Other Education Discussed and educated with [facility] PT-OP-R Modalities Start: 01/09/18 14:22 Freq: Status: Active Protocol: Document 02/22/18 09:03 EA (Rec: 02/22/18 09:40 EA [id number]) Electric Stimulation Electric Stimulation Interferential Current (IFC) Body Location right shoulder Duration (Minutes) 15 Combined With Heat/Cold Cold Pack PT-OP-T Assessment and Plan Start: 01/09/18 14:22 Freq: Status: Active Protocol: Document 02/27/18 09:08 EA (Rec: 02/27/18 09:47 EA [id number]) Physical Therapy Assessment Goals Three Impairment Subjective right shoulder pain of 4/10 with overhead movement Longterm Goal (LTG) Patient will perfrom overhead movement with Less than 1/10 PS. LTG Duration Reached Two Impairment Right shoulder ER/IR, ABD, Flexion limitation Longterm Goal (LTG) Patient will exhibit Normal ROM with R shoulder ABD/ Flexion/ ER/IR LTG Duration Reached One Impairment Quickdash score of 36 [employer] Goal (LTG) Patient will have QuickDash score of < 15 LTG Duration Reached Assessment Summary Assessment Patient discharged today as patient requested due to no more complaints; patient want to cont. HEP. Physical Therapy Plan Discharge Physical Therapy Discharge Reasons Patient Request
== END 2018-03-07 12:09 ==
LOC: PHYS 09:00
PROVIDERS: Family Provider Family Medicine; PCP Family Medicine; Visit Provider Family Medicine
DX: M25.511 Pain in right shoulder (principal); G89.29 Other chronic pain; M25.512 Pain in left shoulder
CPT/HCPCS: 97014; 97035; 97110; 97140; 97161; 97535; G0283

== ENCOUNTER 2018-06-11 17:56 | Emergency (ER) | payer MEDICARE, OTHER, SELFPAY ==
[2018-06-11 18:02] VITALS: BP 156/79; PULSE 65; RESP 18; TEMP 36.7; O2SAT 96
--- NOTE | 2018-06-11 18:29 | ED_ITS ---
HPI - Wound/Laceration <DELFINO Cedillo-BC - Last Filed: 06/11/18 19:18> General Chief Complaint: Wound/Laceration Stated Complaint: laceration left hand ring finger Time Seen by Provider: 06/11/18 18:07 Source: patient and family Mode of arrival: ambulatory Limitations: no limitations History of Present Illness HPI narrative: The patient is a very at 68 male who presents with a chief complaint of his laceration to his left ring finger. He states he was cleaning wine glasses when the stem broke. He states that he was having trouble controlling the bleeding on the laceration on his left ring finger. He states his tetanus was 4 years ago. He denies any decreased range of motion. Related Data Home Medications Medication Instructions Recorded Confirmed doxazosin [Cardura] 8 mg PO #0 06/20/16 11/30/17 cyclosporine [Restasis] 1 drp OPHTH BID #0 04/19/17 11/30/17 Previous Rx's Medication Instructions Recorded omeprazole 20 mg PO QDAY #90 tab 08/10/17 atorvastatin [Lipitor] 10 mg PO HS #90 tab 09/12/17 hydrochlorothiazide 25 mg PO QDAY #90 tab 09/12/17 allopurinol 300 mg tablet 300 mg PO QDAY #90 tab 01/25/18 nifedipine ER 60 mg 60 mg PO QDAY #90 tab 01/25/18 tablet,extended release Allergies Allergy/AdvReac Type Severity Reaction Status Date / Time No Known Drug Allergies Allergy Unverified 11/30/17 16:10 Review of Systems <DELFINO Cedillo- - Last Filed: 06/11/18 19:18> Review of Systems GENERAL: Denies chills, fatigue, malaise, fever, sweats. HEENT: Denies sinus pain, ear pain, sore throat, difficulty swallowing, dizziness. RESPIRATORY: Denies dyspnea, cough, wheezing, hemoptysis, sputum. CARDIOVASCULAR: Denies chest pain, palpitations, orthopnea, edema, GASTROINTESTINAL: Denies nausea, vomiting, abdominal pain, diarrhea, constipation, melena. : Denies dysuria, frequency, incontinence, hematuria, urinary retention. MUSCULOSKELETAL: denies weakness, joint pain, or bony pain SKIN: HPI NEUROLOGIC: Denies weakness, headache, numbness, change in speech, confusion, seizures, incoordination. PSYCHIATRIC: No concerning psychosocial issues. 12 point review of systems is negative except for those stated above Exam <ROSALIE Cedillo - Last Filed: 06/11/18 19:18> Narrative Exam Narrative: GENERAL: This is a well-nourished, well-developed patient, in mild distress. HEAD: Atraumatic. Normocephalic. No temporal or scalp tenderness. EYES: Pupils equal round and reactive. Extraocular motions intact. No scleral icterus. No injection or drainage. ENT: Nose without bleeding, purulent drainage or septal hematoma. Throat without erythema, tonsillar hypertrophy or exudate. Uvula midline. Airway patent. NECK: Trachea midline. No JVD or lymphadenopathy. Supple, nontender, no meningeal signs. CARDIOVASCULAR: Regular rate and rhythm without murmurs, gallops, or rubs. RESPIRATORY: No cough or increased respiratory effort. EXTREMITIES: No clubbing, cyanosis, or edema. No joint tenderness, effusion, or edema noted. Full range of motion left fingers. Capillary refill less than 2 sec left ring finger. BACK: Nontender without deformity or crepitance. No flank tenderness. NEURO: AOx3. SKIN: 1 cm half-ansari shaped laceration palmar aspect left ring finger proximal phalanx. No obvious foreign body. No tendon or muscle involvement. Through dermis. Initial Vital Signs Initial Vital Signs: Vital Signs Temperature 98.0 F 06/11/18 18:02 Pulse Rate 65 06/11/18 18:02 Respiratory Rate 18 06/11/18 18:02 Blood Pressure 156/79 H 06/11/18 18:02 Pulse Oximetry 96 06/11/18 18:02 <Nissa Bobo DO - Last Filed: 06/12/18 05:04> Initial Vital Signs Initial Vital Signs: Vital Signs Temperature 98.0 F 06/11/18 18:02 Pulse Rate 65 06/11/18 18:02 Respiratory Rate 18 06/11/18 18:02 Blood Pressure 156/79 H 06/11/18 18:02 Pulse Oximetry 96 06/11/18 18:02 Procedures <ROSALIE Cedillo - Last Filed: 06/11/18 19:18> Laceration Repair Laceration 1: Site: hand Side (If applicable): left Size (cm): 1 Description: flap Pre-repair: wound explored, irrigated extensively and deep structures intact (soaked in water and Hibiclens, flushed with sterile water.) Skin layer closed with: other (Dermabond, Steri-Strips) Course <ROSALIE Cedillo - Last Filed: 06/11/18 19:18> Vital Signs - 8 hr 06/11/18 18:02 Temperature 98.0 F Pulse Rate 65 Respiratory Rate 18 Blood Pressure 156/79 H Pulse Oximetry 96 <Nissa Bobo DO - Last Filed: 06/12/18 05:04> Vital Signs - 8 hr 06/11/18 18:02 Temperature 98.0 F Pulse Rate 65 Respiratory Rate 18 Blood Pressure 156/79 H Pulse Oximetry 96 MDM - Wound/Laceration <ROSALIE Cedillo - Last Filed: 06/11/18 19:18> MDM Narrative Medical decision making narrative: The patient presents with chief complaint of laceration. It was closed as noted. Closure was well tolerated by the patient. He has full range of motion, no obvious foreign body in declined an x- ray to check for foreign body. His Tdap is up-to-date. I discussed at length monitoring for signs and symptoms of infection including erythema, pus, fever. Patient and his had no questions or concerns upon discharge. Discharge Plan Departure Patient Disposition: Home Clinical Impression: Laceration Discharge Date/Time: 06/11/18 19:12 Interventions: ED Discharge Assessment Last Done: 06/11/18 19:11 Instructions: DI for Laceration Repair Steri-Strips, DI for Laceration Repair With Dermabond Activity Restrictions/Additional Instructions: Please keep the laceration clean dry and intact. Please monitor for signs and symptoms of infection including redness, pus and fever. Please follow-up if any of these occur. Please do not submerge your hand in to dirty water as this increases her chance of infection. Please take lwyo-gya-hecravn pain medications as needed and able. Please do not put any rings back on her left ring finger until the wound is healed and swelling is decreased. Prescriptions: No Action doxazosin [Cardura] 8 MG tablet 8 mg PO Qty: 0 RF: 0 cyclosporine [Restasis] 1 EACH dropperette 1 drp OPHTH BID Qty: 0 RF: 0 omeprazole 20 MG capsule,delayed release(DR/EC) 20 mg PO QDAY Qty: 90 RF: 3 atorvastatin [Lipitor] 10 MG tablet 10 mg PO HS Qty: 90 RF: 3 hydrochlorothiazide 25 MG tablet 25 mg PO QDAY Qty: 90 RF: 3 nifedipine 60 mg tablet extended release 60 mg PO QDAY Qty: 90 RF: 11 allopurinol 300 mg tablet 300 mg PO QDAY Qty: 90 RF: 11 Referrals: Inocente Carl MD [Primary Care Provider] - <Nissa Bobo DO - Last Filed: 06/12/18 05:04> Cosign ED Attending Cosignature Attestation: I was immediately available in the department for consultation. This documentation has been reviewed and I agree with assessment and plan. Supervised by Nissa Bobo DO
--- NOTE | 2018-06-11 19:10 | PC.NURSE ---
steri-trips/derma-soler applied to left ring ringer. pt tolerated procedure applied by provider.
== END 2018-06-11 19:12 | disposition home or self-care (01) ==
PROVIDERS: Emergency Provider Nurse Practitioner Family; Family Provider Family Medicine; PCP Family Medicine
DX: S61.215A Laceration without foreign body of left ring finger without damage to nail, initial encounter (principal); W25.XXXA Contact with sharp glass, initial encounter
CPT/HCPCS: 12001; 99282; 99283

== ENCOUNTER → 2018-08-13 07:03 | Outpatient (CLI) | payer MEDICARE, OTHER, SELFPAY ==
[2018-08-13 10:03] LABS: Hematocrit 45.8 % (41-53); Hemoglobin 15.6 g/dL (13.5-17.5); Mean Corpuscular Hemoglobin 33.6 PG (26-34); Mean Corpuscular Volume 98.8 fL (80-100); Platelet Count 172 X10^3/uL (150-400); Red Blood Cell Count 4.64 X10^6/uL (4.5-5.9); Red Cell Distribution Width 14.1 % (11.6-14.8); White Blood Cell Count 5.2 X10^3/uL (4.5-11.0)
[2018-08-13 10:10] LABS: Alanine Aminotransferase 34 IU/L (21-72); Albumin 4.3 g/dL (3.5-5.0); Albumin Globulin Ratio 1.4 (1.0-2.8); Alkaline Phosphatase 60 U/L (38-126); Aspartate Aminotransferase 27 IU/L (17-59); BUN Creatinine Ratio 24.4 (6-22); Bilirubin Total 0.6 mg/dL (0.2-1.3); Blood Urea Nitrogen 22 mg/dL (9-20); Calcium 9.1 mg/dL (8.4-10.2); Carbon Dioxide 28 mmol/L (22-32); Chloride 103 mmol/L (98-107); Cholesterol 173 mg/dL (140-199); Estimated Glomerular Filt Rate > 60.0 mL/min (>60); Glucose 83 mg/dL (80-110); HDL Cholesterol 82 mg/dL (40-60); HEMOLYSIS < 15 (0-50); LDL Cholesterol Calculated 75 mg/dL (<100); Potassium 3.6 mmol/L (3.4-5.1); Sodium 140 mmol/L (137-145); Total Protein 7.3 g/dL (6.3-8.2); Triglycerides 78 mg/dL (35-150); Uric Acid 4.6 mg/dL (3.5-8.5)
[2018-08-13 11:39] LABS: Microalbumi Creatinin Ratio Ur 13.3 ug/mg CR (<30); Microalbumin Urine Random < 0.6 mg/dL (0-1.6)
== END ==
PROVIDERS: PCP Family Medicine; Visit Provider Nurse Practitioner Family
DX: I10 Essential (primary) hypertension (principal); E79.0 Hyperuricemia without signs of inflammatory arthritis and tophaceous disease; Z68.37 Body mass index [BMI] 37.0-37.9, adult
CPT/HCPCS: 36415; 80053; 80061; 82043; 82570; 83036; 84550; 85027

== ENCOUNTER 2018-08-29 06:53 | Day surgery (SDC) | payer MEDICARE, OTHER, SELFPAY ==
--- NOTE | 2018-08-29 | PATH_ITS ---
[facility] Accession Number: [id number] . 01 Material submitted: . PART A: CECAL POLYP PART B: ASCENDING COLON POLYP X3 PART C: TRANSVERSE COLON POLYP PART D: DESCENDING COLON POLYP X2 . 02 Diagnosis: A. Cecum, Polyp, Biopsy: Benign lymphoid aggregate. . B. Ascending Colon, Polyps x3, Biopsies: Tubular adenomas. . C. Transverse Colon, Polyp, Biopsy: Tubular adenoma. . D. Descending Colon, Polyps x2, Biopsies: Tubular adenomas. MRV/08/31/2018 . 02 Electronically signed: . Keya Adams MD, Pathologist NPI- [id number] . 01 Gross description: . Received four formalin-filled containers, each labeled with the patient's name: . A. In a container labeled cecal polyp, the specimen consists of a 0.3 cm portion of tissue, entirely submitted in cassette A. B. In a container labeled ascending polyp, the specimen consists of three 0.2-0.3 cm portions of tissue, entirely submitted in cassette B. C. In a container labeled transverse colon polyp, the specimen consists of a 0.2 cm portion of tissue, entirely submitted in cassette C. D. In a container labeled descending polyp x2, the specimen consists of three 0.2-0.4 cm portions of tissue, entirely submitted in cassette D. ([id number]) /FRR . 02 Pathologist provided ICD-10: D12.2, D12.3, D12.4 . 02 CPT . 387913, 195675, 348724, [id number] Performed at: [address], [place], [place] [id number] MD Fritz Cervantes MD Phone: [phone] Performed at: 02 [facility] [address] [place] [id number] MD Keya Adams MD Phone: [phone]
[2018-08-29 07:12] VITALS: BP 160/75; PULSE 68; RESP 16; TEMP 37.2; O2SAT 97; BMI 33.9
[2018-08-29] MEDS: MIDAZOLAM 5 MG/5 ML VIAL 7 MG IV (08:50)
[2018-08-29] MEDS: fentaNYL 250 MCG/5 ML INJ IV (08:50)
--- NOTE | 2018-08-29 09:11 | PM.PREOP ---
Pre-operative Note Interval Note History & Physical reviewed/Exam performed by Physician: Yes Changes to H&P: No ASA Class (for procedural sedation): II
[2018-08-29 09:15] VITALS: BP 143/73; PULSE 60; RESP 20; TEMP 36.2; O2SAT 97
--- NOTE | 2018-08-29 09:16 | PM.OP.ENDO ---
Operative Date/Time/Diagnoses Date of procedure: 08/29/18 Procedure & Clinicians Study performed: Colonoscopy with biopsy Same procedure as scheduled: Yes Indications: Colon cancer screening Moderate conscious sedation was administered by the endoscopy nurse and supervised by the endoscopist. The following parameters were monitored: Oxygen saturation, heart rate, blood pressure, and response to care. Sedation: 7 mg midazolam and 150 mcg of fentanyl. Procedure Notes Procedure in detail: Prior to the procedure, history and physical was performed, and patient medications and allergies were reviewed. Preprocedure nursing history and assessment was reviewed. Patient identification and proposed procedure were verified by the physician and nurse in the procedure room. The physical status of the patient was reassessed after the procedure. After informed consent was obtained including risks, benefits, and alternatives, the scope was passed under direct vision. Throughout the procedure, the patient's blood pressure, pulse, and oxygen saturations were monitored continuously. The colonoscope was introduced through the anus and advanced to the cecum as identified by the appendiceal orifice and ileocecal valve. The patient tolerated the procedure well. Bowel prep was deemed adequate to detect polyps greater than 5 mm. Findings: Digital rectal examination and perianal examinations were unremarkable. Grade 1 internal hemorrhoids noted on retroflexion. Seven 3-4mm sessile polyps were noted in the cecum, ascending colon, transverse colon, and descending colon. These were resected and retrieved with a Jumbo biopsy forceps Many medium mouth diverticula noted in the sigmoid colon Impression: Internal hemorrhoids Sigmoid colon diverticulosis Seven 3-4mm polyps removed from the cecum, ascending colon, transverse colon, and descending colon Sedation minutes: 29 Complications: other (Estimated blood loss minimal. No complications) Plan for aftercare: Follow-up pathology results Repeat colonoscopy at a date to be determined based on pathology results Resume home medications High-fiber diet Discharge home with escort
[2018-08-29 09:19] VITALS: BP 145/82; PULSE 58; RESP 15; O2SAT 96
--- NOTE | 2018-08-29 09:24 | PM.HP.1 ---
History of Present Illness Chief complaint: [id number] COLONOSCOPY W/POSS BX Patient History Family & Social History Social History: household members spouse Tobacco & Substance use: Smoking Status Never smoker alcohol intake current Meds Home Medications Medication Instructions Recorded Confirmed Type cyclosporine [Restasis] 1 drp OPHTH BID #0 04/19/17 08/09/18 History allopurinol 300 mg tablet 300 mg PO QDAY #90 tab 01/25/18 08/09/18 Rx nifedipine ER 60 mg 60 mg PO QDAY #90 tab 01/25/18 08/09/18 Rx tablet,extended release [place]-3 Fish oil 1,400 mg PO 08/09/18 08/09/18 History aspirin 81 mg tablet,delayed 81 mg PO DAILY 08/09/18 08/09/18 History release atorvastatin 10 mg tablet 10 mg PO HS #90 tab 08/09/18 Rx cholecalciferol (vitamin D3) 1,000 1,000 unit PO DAILY 08/09/18 08/09/18 History unit capsule hydrochlorothiazide 25 mg tablet 25 mg PO QDAY #90 tab 08/09/18 Rx multivitamin with minerals tablet 1 tab PO DAILY 08/09/18 08/09/18 History omeprazole 20 mg capsule,delayed 20 mg PO QDAY #90 tab 08/09/18 Rx release terazosin 10 mg capsule 10 mg PO DAILY 08/09/18 08/09/18 History varicella-zoster glycoE [id number] 50 mcg IM ONCE #1 each 08/09/18 Rx adj(PF) 50 mcg/0.5 mL IM susp, kit Allergies Allergy/AdvReac Type Severity Reaction Status Date / Time No Known Drug Allergies Allergy Unverified 08/09/18 10:19 Exam Vital Signs (past 8 hours): - 08/29/18 07:12 08/29/18 09:15 08/29/18 09:19 Temperature 99.0 F 97.1 F L Pulse Rate 68 60 58 L Respiratory Rate 16 20 15 Blood Pressure 160/75 H 143/73 H 145/82 H Pulse Oximetry 97 97 96 Oxygen Delivery Method Room Air Narrative Exam Narrative: Aaox3 Pupils equal round and reactive to light Heart regular rhythm Lungs clear to auscultation bilaterally Abdomen soft, nontender, nondistended, normal bowel sounds No lower extremity edema Assessment & Plan Assessment & Plan narrative: Colonoscopy for colon cancer screening
[2018-08-29 09:25] VITALS: BP 140/83; PULSE 56; RESP 18; O2SAT 97
[2018-08-29 09:32] VITALS: BP 147/87; PULSE 57; RESP 15; TEMP 36.5; O2SAT 95
[2018-08-29 09:55] VITALS: BP 140/82; PULSE 58; RESP 16; O2SAT 95
== END 2018-08-29 10:00 | disposition home or self-care (01) ==
PROVIDERS: PCP Nurse Practitioner Family; Visit Provider Internal Medicine
PROC: 0DJD8ZZ Inspection of Lower Intestinal Tract, Via Natural or Artificial Opening Endoscopic (ICD-10-PCS; CPT 45378; principal; 2018-08-29 08:30)
DX: Z86.010 Personal history of colon polyps (principal); K57.30 Diverticulosis of large intestine without perforation or abscess without bleeding; K64.0 First degree hemorrhoids; D12.2 Benign neoplasm of ascending colon; D12.3 Benign neoplasm of transverse colon; D12.4 Benign neoplasm of descending colon
CPT/HCPCS: 45380; 88305; J2250; J3010

== ENCOUNTER → 2018-11-19 11:21 | Outpatient (CLI) | payer MEDICARE, OTHER, SELFPAY ==
[2018-11-19 13:22] LABS: Prostate Specific Antigen 2.44 ng/mL (0.10-4.00)
== END ==
PROVIDERS: PCP Nurse Practitioner Family; Visit Provider Urology
DX: R39.9 Unspecified symptoms and signs involving the genitourinary system (principal); R33.9 Retention of urine, unspecified; Z12.5 Encounter for screening for malignant neoplasm of prostate
CPT/HCPCS: 36415; 84153

== ENCOUNTER → 2019-02-19 06:56 | Outpatient (CLI) | payer MEDICARE, OTHER, SELFPAY ==
[2019-02-19 08:01] LABS: Hematocrit 45.2 % (41-53); Hemoglobin 15.6 g/dL (13.5-17.5); Mean Corpuscular HGB Conc 34.4 % (30-36); Mean Corpuscular Hemoglobin 33.7 PG (26-34); Mean Corpuscular Volume 97.9 fL (80-100); Platelet Count 160 X10^3/uL (150-400); Red Blood Cell Count 4.62 X10^6/uL (4.5-5.9); Red Cell Distribution Width 14.3 % (11.6-14.8)
[2019-02-19 08:02] LABS: Alanine Aminotransferase 24 IU/L (21-72); Albumin 4.3 g/dL (3.5-5.0); Albumin Globulin Ratio 1.4 (1.0-2.8); Alkaline Phosphatase 75 U/L (38-126); Aspartate Aminotransferase 28 IU/L (17-59); Bilirubin Total 0.6 mg/dL (0.2-1.3); Blood Urea Nitrogen 24 mg/dL (9-20); Calcium 9.1 mg/dL (8.4-10.2); Carbon Dioxide 27 mmol/L (22-32); Chloride 103 mmol/L (98-107); Estimated Glomerular Filt Rate > 60.0 mL/min (>60); Globulin 3.1 g/dL (1.7-4.1); Glucose 103 mg/dL (80-110); HEMOLYSIS < 15 (0-50); Potassium 3.7 mmol/L (3.4-5.1); Sodium 139 mmol/L (137-145); Total Protein 7.4 g/dL (6.3-8.2)
[2019-02-19 08:54] LABS: Creatinine Urine Random 93.1 mg/dL
[2019-02-19 08:59] LABS: Microalbumin Urine Random 2.7 mg/dL (0-1.6)
== END ==
PROVIDERS: PCP Nurse Practitioner Family; Visit Provider Nurse Practitioner Family
DX: I10 Essential (primary) hypertension (principal)
CPT/HCPCS: 36415; 80053; 82043; 82570; 85027

== ENCOUNTER → 2019-08-28 08:14 | Outpatient (CLI) | payer MEDICARE, OTHER, SELFPAY ==
[2019-08-28 08:57] LABS: Hematocrit 44.2 % (41-53); Hemoglobin 14.7 g/dL (13.5-17.5); Mean Corpuscular HGB Conc 33.2 % (30-36); Mean Corpuscular Hemoglobin 33.3 PG (26-34); Mean Corpuscular Volume 100.1 fL (80-100); Platelet Count 160 X10^3/uL (150-400); Red Blood Cell Count 4.41 X10^6/uL (4.5-5.9); Red Cell Distribution Width 14.3 % (11.6-14.8); White Blood Cell Count 4.7 X10^3/uL (4.5-11.0)
[2019-08-28 09:11] LABS: BUN Creatinine Ratio 39.1 (6-22); Blood Urea Nitrogen 34 mg/dL (9-20); Calcium 9.1 mg/dL (8.4-10.2); Carbon Dioxide 27 mmol/L (22-32); Chloride 102 mmol/L (98-107); Cholesterol 173 mg/dL (140-199); Estimated Glomerular Filt Rate > 60.0 mL/min (>60); Glucose 102 mg/dL (80-110); HDL Cholesterol 83 mg/dL (40-60); HEMOLYSIS < 15 (0-50); LDL Cholesterol Calculated 80 mg/dL (<100); Potassium 3.7 mmol/L (3.4-5.1); Sodium 137 mmol/L (137-145); Triglycerides 50 mg/dL (35-150)
== END ==
PROVIDERS: PCP Nurse Practitioner Family; Referring Provider Nurse Practitioner Family; Visit Provider Nurse Practitioner Family
DX: I10 Essential (primary) hypertension (principal); E78.00 Pure hypercholesterolemia, unspecified
CPT/HCPCS: 36415; 80048; 80061; 85027

== ENCOUNTER → 2019-12-16 10:15 | Outpatient (CLI) | payer MEDICARE, OTHER, SELFPAY ==
[2019-12-16 12:33] LABS: Prostate Specific Antigen 1.95 ng/mL (0.10-4.00)
== END ==
PROVIDERS: PCP Nurse Practitioner Family; Referring Provider Urology; Visit Provider Urology
DX: Z12.5 Encounter for screening for malignant neoplasm of prostate (principal)
CPT/HCPCS: 36415; 84153

== ENCOUNTER → 2020-01-01 11:32 | Outpatient (CLI) | payer MEDICARE, OTHER, SELFPAY ==
--- NOTE | 2020-01-01 11:34 | DI.RAD.S_ITS ---
PROCEDURE: XR CERVICAL SPINE 2V OR 3V INDICATIONS: neck strain TECHNIQUE: 3 view(s) of the cervical spine were acquired. COMPARISON: None. FINDINGS: Bones: No fractures or dislocations to the T1 level. The lateral masses of C1 appear intact on the odontoid view. No suspicious bony lesions. Moderate to severe cervical spondylosis. Somewhat prominent anterior osteophytes from C2-C3 through C6-C7. Multilevel facet arthropathy. Soft tissues: No prevertebral soft tissue swelling. Bilateral carotid bifurcation region atherosclerotic plaque. IMPRESSION: 1. Moderate to severe cervical spondylitic change. 2. ASCVD Dictated by: Wilber Tenorio M.D. on 01/01/2020 at 12:26 Approved by: Wilber Tenorio M.D. on 01/01/2020 at 12:28
== END ==
PROVIDERS: PCP Nurse Practitioner Family; Referring Provider Nurse Practitioner Family; Visit Provider Nurse Practitioner Family
DX: S16.1XXA Strain of muscle, fascia and tendon at neck level, initial encounter (principal); M47.812 Spondylosis without myelopathy or radiculopathy, cervical region; I65.23 Occlusion and stenosis of bilateral carotid arteries
CPT/HCPCS: 72040

== ENCOUNTER → 2020-01-07 07:39 | Outpatient (CLI) | payer MEDICARE, OTHER, SELFPAY ==
--- NOTE | 2020-01-07 07:41 | DI.US.S_ITS ---
PROCEDURE: US CAROTID DOPPLER BI INDICATIONS: ASCVD TECHNIQUE: Color and pulse Doppler interrogation was performed of both carotid systems, with image documentation and velocity measurements. COMPARISON: None. FINDINGS: Stenosis calculations are based on SRU (Society of Radiologists in Ultrasound) criteria. Right side: Brachial blood pressure: 137/72 mm Hg. Common carotid artery peak systolic velocity: 83 cm/sec. Internal carotid artery peak systolic velocity: 34 cm/sec. Internal carotid artery end diastolic velocity: 7 cm/sec. External carotid artery peak systolic velocity: 89 cm/sec. ICA/CCA peak systolic ratio: 0.4 . Soto scale imaging description: Moderate scattered plaque. Percent internal carotid artery stenosis: Less than 50% . Vertebral artery: Flow direction is antegrade. Left side: Brachial blood pressure: 151/74 mm Hg. Common carotid artery peak systolic velocity: 85 cm/sec. Internal carotid artery peak systolic velocity: 64 cm/sec. Internal carotid artery end diastolic velocity: 13 cm/sec. External carotid artery peak systolic velocity: 97 cm/sec. ICA/CCA peak systolic ratio: 0.8 . Soto scale imaging description: Moderate scattered plaque. Percent internal carotid artery stenosis: Less than 50% . Vertebral artery: Flow direction is antegrade. IMPRESSION: Less than 50% bilateral internal carotid artery stenosis. Dictated by: Gama Rush [facility] Interpreted: Danny Mcgarry MD on 01/08/2020 at 13:30 Approved by: Danny Mcgarry M.D. on 01/09/2020 at 11:39
== END ==
PROVIDERS: PCP Nurse Practitioner Family; Referring Provider Nurse Practitioner Family; Visit Provider Nurse Practitioner Family
DX: I65.23 Occlusion and stenosis of bilateral carotid arteries (principal); I25.10 Atherosclerotic heart disease of native coronary artery without angina pectoris
CPT/HCPCS: 93880

== ENCOUNTER 2020-03-27 10:30 | Outpatient (RCR) | payer MEDICARE, OTHER, SELFPAY ==
--- NOTE | 2020-02-04 17:48 | PT.OIE ---
Current Diagnoses Stiffness of unspecified joint, not elsewhere classified (02/04/20) Cervicalgia (02/04/20) Strain of muscle, fascia and tendon at neck level, initial encounter (02/04/20) Strain of muscle, fascia and tendon at neck level, subsequent encounter (02/04/20) Past Medical History (Last Updated 01/01/20 @ 13:37 by FERNANDEZ Dorsey) Atherosclerotic cardiovascular disease (Acute 12/2019) Bladder stones (Resolved Unknown) BPH (benign prostatic hyperplasia) (Chronic Unknown) Chickenpox (Resolved Unknown) Chronic left shoulder pain (Chronic) Chronic right shoulder pain (Chronic 04/19/17) GERD (gastroesophageal reflux disease) (Chronic Unknown) Gout (Chronic Unknown) Hearing loss (Chronic Unknown) Hyperlipemia (Chronic Unknown) Hypertension (Chronic Unknown) Knee pain (Resolved Unknown) Measles (Resolved Unknown) Neck strain (Acute) Shoulder pain (Chronic Unknown) Past Surgical History (Last Reviewed 06/11/18 @ 19:12 by DELFINO Cedillo-JULIO) Hx of cystoscopy (Resolved 01/2015) Visit Care Team Role Provider Type FERNANDEZ Dorsey Attending Provider Advanced Cath Lab Technologist Primary Care Provider Referring Provider Specialty: [facility] Address: [address] [place] [address], [facility] Email: [email or web address] Physical Therapy Initial Evaluation PT-OP-A Visit Information Start: 02/04/20 17:14 Freq: Status: Active Protocol: Document 02/04/20 13:45 DCW (Rec: 02/04/20 17:48 [facility] [id number]) Out-Patient Physical Therapy Visit Information Visit Information Visit Type Initial Evaluation Visit Start Time 13:45 Visit Stop Time 14:30 Total Visit Minutes 45 Visit Number 1 Number of FELLER HAND Visits 0 Evaluation Information Evaluation Date 02/04/20 PT-OP-B Current Condition Start: 02/04/20 17:14 Freq: Status: Active Protocol: Document 02/04/20 13:45 DCW (Rec: 02/04/20 17:48 [facility] [id number]) Current Condition History of Current Condition Onset Date 1.5 months Current Complaints neck pain and stiffness History of Current Condition Pt is a 74 year old male presenting with a one and a half month history of neck pain and stiffness. Pt believes his pain started after washing the 3rd story windows on his house. Pt reports he has a long pole to wash them, and spent an extended period of time standing around in excessive cervical extension, and ever since then, has been having a lot of pain and muscle tightness. Pt does note that he has improved since his PCP visit one month ago. Notes that he has tried ice, heat, ibuprofen, and naproxen, but nothing has really helped. Admits that the pain overall doesn't prevent him from doing anything, but he hasn't tried any more window washing. PT-OP-C Subjective Start: 02/04/20 17:14 Freq: Status: Active Protocol: Document 02/04/20 13:45 DCW (Rec: 02/04/20 17:48 DCW [id number]) Patient Questionnaires Neck Disability Index NDI Score 11/50 = 22% Quick Dash- Upper Extremity Quick Dash UE Score 20.45% Quick Dash UE Impairment 20 to 39% Impaired (Score 20- 39) OP-PT Pain Assessment Pain Assessment Grid Paper Pain Assessment Grid Completed Yes Location Left Lateral Neck Intensity 4 Scale Used Numeric (0 - 10) PT-OP-F Manual Assessment Start: 02/04/20 17:14 Freq: Status: Active Protocol: Document 02/04/20 13:45 DCW (Rec: 02/04/20 17:48 DCW [id number]) Manual Assessments Soft Tissue Assessment Soft Tissue Mobility Assessment Moderate-Severe tone along left upper trap, scalenes, and SCM. Tenderness to palpation 2/4 - Pain with wincing Joint Mobility Assessment Joint Mobility Assessment Appropriate alignment and mobility of cervical vertebrae PT-OP-K Range of Motion Start: 02/04/20 17:14 Freq: Status: Active Protocol: Document 02/04/20 13:45 DCW (Rec: 02/04/20 17:48 DCW [id number]) Cervical Spine Range of Motion Cervical Spine Active Degrees Testing Position Sitting Flexion 35 Extension 30 Rotation Left 55 Rotation Right 35 Lateral Flexion Left 32 Lateral Flexion Right 25 ROM Limitations Soft Tissue Tightness,Muscle Tone,Pain PT-OP-L Special Tests Start: 02/04/20 17:14 Freq: Status: Active Protocol: Document 02/04/20 13:45 DCW (Rec: 02/04/20 17:48 [facility] [id number]) Special Tests Cervical Spine Special Tests Traction Test Results Mild pain relief Spurling's Test Test Results Negative Slump Test Results Negative Foraminal Compression Test Results Negative PT-OP-Q Treatments Start: 02/04/20 17:14 Freq: Status: Active Protocol: Document 02/04/20 13:45 DCW (Rec: 02/04/20 17:48 DCW [id number]) Therapeutic Exercises Sitting Exercises 1 Sitting Exercise Name Upper trap, SCM, Scalene stretching Side right Comments HEP PT-OP-T Assessment and Plan Start: 02/04/20 17:14 Freq: Status: Active Protocol: Document 02/04/20 13:45 DCW (Rec: 02/04/20 17:48 DCW [id number]) Physical Therapy Assessment Rehab Potential Rehabilitation Potential Excellent Evaluation Complexity Number of Personal Factors/Comorbidities 1-2 Number of Body Systems Impaired 1-2 Clinical Presentation at Evaluation Stable Impairments Impairments Functional Activities, Functional Mobility,Pain, Posture,ROM,Soft Tissue Mobility,Tone Goals Three Impairment Pt displays moderate-severe tone through R UT, SCM, and Scalenes Emergency Response Officer Goal (LTG) Pt to demonstrate reduced tone in cervical paraspinal musculature to mild LTG Duration 04/05/20 Two Impairment Pt cervical ROM limited to 35? flexion and 35? R rotation Emergency Response Officer Goal (LTG) Pt to exhibit increased cervical ROM to 60? flexion and 55? right rotation in order for him to improve his ability to check for oncoming traffic while driving. LTG Duration 04/05/20 One Impairment Pt does not have an appropriate home exercise program Short Term Goal (STG) Pt to be independent and compliant with an appropriate HEP STG Duration 03/06/20 Assessment Summary Assessment Pt presents with signs and symptoms of a musculature strain along his right cervical spine. Pt exhibits significant muscle tone along his right upper trap, right SCM, and right scalenes. Luckily, at this time, pt does not display any obvious involvement of the structure of his vertebrae or neuro symptoms, and appears to just strictly have a soft tissue injury. Pt's muscle tightness limits his ROM, especially in flexion and right cervical rotation. Pt did display good tolerance to STM and stretching, and after his initial stretching, increased right cervical rotation from 35? to 52?. Pt should benefit from skilled therapy focused on STM, flexibility/ROM, pain- control, and manual therapy. Physical Therapy Plan Frequency and Duration Frequency of Treatment 2x/Week Duration of Treatment 10 weeks Plan of Care Start Date 02/04/20 Plan of Care End Date 04/14/20 Therapeutic Interventions Therapeutic Interventions Home Exercise Program,Joint Mobilizations,Manual Therapy, Patient/Caregiver Education, Self-Care/Home Management,Soft Tissue Mobilization, Therapeutic Activities, Therapeutic Exercises Modalities Cold Pack/Ice Massage,Electric Stimulation,Hot Packs, Ultrasound Next Visit Focus/Plan Next Note Type Treatment Note Next Visit Plan STM, ROM/Flexibility, Pain- control modalities, Manual traction
--- NOTE | 2020-02-04 17:49 | PT.OPPOC ---
Physical, Occupational & Speech Therapy At [facility] Current Diagnoses Stiffness of unspecified joint, not elsewhere classified (02/04/20) Cervicalgia (02/04/20) Strain of muscle, fascia and tendon at neck level, initial encounter (02/04/20) Strain of muscle, fascia and tendon at neck level, subsequent encounter (02/04/20) Visit Care Team Role Provider Type FERNANDEZ Dorsey Attending Provider Advanced Contract Preparer Primary Care Provider Referring Provider Specialty: [facility] Address: [address] [place] [address], [id number] Email: [email or web address] Plan Of Care PT-OP-T Assessment and Plan Start: 02/04/20 17:14 Freq: Status: Active Protocol: Document 02/04/20 13:45 DCW (Rec: 02/04/20 17:48 DCW [id number]) Physical Therapy Assessment Rehab Potential Rehabilitation Potential Excellent Evaluation Complexity Number of Personal Factors/Comorbidities 1-2 Number of Body Systems Impaired 1-2 Clinical Presentation at Evaluation Stable Impairments Impairments Functional Activities, Functional Mobility,Pain, Posture,ROM,Soft Tissue Mobility,Tone Goals Three Impairment Pt displays moderate-severe tone through R UT, SCM, and Scalenes Long-Term Goal (LTG) Pt to demonstrate reduced tone in cervical paraspinal musculature to mild LTG Duration 04/05/20 Two Impairment Pt cervical ROM limited to 35? flexion and 35? R rotation Long-Term Goal (LTG) Pt to exhibit increased cervical ROM to 60? flexion and 55? right rotation in order for him to improve his ability to check for oncoming traffic while driving. LTG Duration 04/05/20 One Impairment Pt does not have an appropriate home exercise program Short Term Goal (STG) Pt to be independent and compliant with an appropriate HEP STG Duration 03/06/20 Assessment Summary Assessment Pt presents with signs and symptoms of a musculature strain along his right cervical spine. Pt exhibits significant muscle tone along his right upper trap, right SCM, and right scalenes. Luckily, at this time, pt does not display any obvious involvement of the structure of his vertebrae or neuro symptoms, and appears to just strictly have a soft tissue injury. Pt's muscle tightness limits his ROM, especially in flexion and right cervical rotation. Pt did display good tolerance to STM and stretching, and after his initial stretching, increased right cervical rotation from 35? to 52?. Pt should benefit from skilled therapy focused on STM, flexibility/ROM, pain- control, and manual therapy. Physical Therapy Plan Frequency and Duration Frequency of Treatment 2x/Week Duration of Treatment 10 weeks Plan of Care Start Date 02/04/20 Plan of Care End Date 04/14/20 Therapeutic Interventions Therapeutic Interventions Home Exercise Program,Joint Mobilizations,Manual Therapy, Patient/Caregiver Education, Self-Care/Home Management,Soft Tissue Mobilization, Therapeutic Activities, Therapeutic Exercises Modalities Cold Pack/Ice Massage,Electric Stimulation,Hot Packs, Ultrasound Next Visit Focus/Plan Next Note Type Treatment Note Next Visit Plan STM, ROM/Flexibility, Pain- control modalities, Manual traction Plan of Care Dates Plan of Care Start Date 02/04/20 Plan of Care End Date 04/14/20 Electronically Signed by: Justin Tang, PT 02/04/20 6812 Please Sign and Return: I have reviewed this Plan of Care and certify that the skilled therapy services above are required to meet the patient?s needs. Physician Signature Date Printed Name and Credentials Clinical Instructor Signature Printed Name and Credentials
--- NOTE | 2020-02-07 14:27 | PT.OTN ---
Current Diagnoses Stiffness of unspecified joint, not elsewhere classified (02/07/20) Cervicalgia (02/07/20) Strain of muscle, fascia and tendon at neck level, initial encounter (02/07/20) Strain of muscle, fascia and tendon at neck level, subsequent encounter (02/07/20) Physical Therapy Treatment Note PT-OP-A Visit Information Start: 02/04/20 17:14 Freq: Status: Active Protocol: Document 02/07/20 13:45 DCW (Rec: 02/07/20 14:27 DCW [id number]) Out-Patient Physical Therapy Visit Information Visit Information Visit Type Treatment Note Visit Start Time 13:45 Visit Stop Time 14:35 Total Visit Minutes 50 Visit Number 2 Number of INTERIOR DESIGN DIRECTOR Visits 0 Evaluation Information Evaluation Date 02/04/20 PT-OP-B Current Condition Start: 02/04/20 17:14 Freq: Status: Active Protocol: Document 02/04/20 13:45 DCW (Rec: 02/04/20 17:48 DCW [id number]) Current Condition History of Current Condition Onset Date 1.5 months Current Complaints neck pain and stiffness History of Current Condition Pt is a 74 year old male presenting with a one and a half month history of neck pain and stiffness. Pt believes his pain started after washing the 3rd story windows on his house. Pt reports he has a long pole to wash them, and spent an extended period of time standing around in excessive cervical extension, and ever since then, has been having a lot of pain and muscle tightness. Pt does note that he has improved since his PCP visit one month ago. Notes that he has tried ice, heat, ibuprofen, and naproxen, but nothing has really helped. Admits that the pain overall doesn't prevent him from doing anything, but he hasn't tried any more window washing. PT-OP-C Subjective Start: 02/04/20 17:14 Freq: Status: Active Protocol: Document 02/07/20 13:45 DCW (Rec: 02/07/20 14:27 DCW [id number]) OP-PT Subjective Patient Comments Patient Comments My range of motion already seems to be improving. PT-OP-F Manual Assessment Start: 02/04/20 17:14 Freq: Status: Active Protocol: Document 02/04/20 13:45 DCW (Rec: 02/04/20 17:48 DCW [id number]) Manual Assessments Soft Tissue Assessment Soft Tissue Mobility Assessment Moderate-Severe tone along left upper trap, scalenes, and SCM. Tenderness to palpation 2/4 - Pain with wincing Joint Mobility Assessment Joint Mobility Assessment Appropriate alignment and mobility of cervical vertebrae PT-OP-K Range of Motion Start: 02/04/20 17:14 Freq: Status: Active Protocol: Document 02/04/20 13:45 DCW (Rec: 02/04/20 17:48 DCW [id number]) Cervical Spine Range of Motion Cervical Spine Active Degrees Testing Position Sitting Flexion 35 Extension 30 Rotation Left 55 Rotation Right 35 Lateral Flexion Left 32 Lateral Flexion Right 25 ROM Limitations Soft Tissue Tightness,Muscle Tone,Pain PT-OP-L Special Tests Start: 02/04/20 17:14 Freq: Status: Active Protocol: Document 02/04/20 13:45 DCW (Rec: 02/04/20 17:48 DCW [id number]) Special Tests Cervical Spine Special Tests Traction Test Results Mild pain relief Spurling's Test Test Results Negative Slump Test Results Negative Foraminal Compression Test Results Negative PT-OP-Q Treatments Start: 02/04/20 17:14 Freq: Status: Active Protocol: Document 02/07/20 13:45 DCW (Rec: 02/07/20 14:27 DCW [id number]) Therapeutic Exercises Supine Exercises 2 Supine Exercise Name UT, Scalene stretching Side right Comments manual 1 Supine Exercise Name Chin Tucks Sitting Exercises 2 Sitting Exercise Name Isometric cervical flexion, rotation, lateral flexion Side bilateral Reps/Minutes 5 hold Comments instruction for gentle resisted movement Manual Therapy Treatment Soft Tissue Mobilization 3 Body Location Scalenes Mobilization Type Sustained Pressure,Trigger Point Release 2 Body Location Suboccipitals Mobilization Type Sustained Pressure 1 Body Location Upper Trap Mobilization Type Strumming,Sustained Pressure, Trigger Point Release Manual Traction Cervical Details Cervical Txn Body Position Supine PT-OP-R Modalities Start: 02/04/20 17:14 Freq: Status: Active Protocol: Document 02/07/20 13:45 DCW (Rec: 02/07/20 14:27 DCW [id number]) Hot Pack/Cold Pack Treatment Hot Pack Location R Cervical Patient Position Supine Treatment Duration (minutes) 10 PT-OP-T Assessment and Plan Start: 02/04/20 17:14 Freq: Status: Active Protocol: Document 02/07/20 13:45 DCW (Rec: 02/07/20 14:27 DCW [id number]) Physical Therapy Assessment Impairments Impairments Functional Activities, Functional Mobility,Pain, Posture,ROM,Soft Tissue Mobility,Tone Goals Three Impairment Pt displays moderate-severe tone through R UT, SCM, and Scalenes [facility] Goal (LTG) Pt to demonstrate reduced tone in cervical paraspinal musculature to mild LTG Duration 04/05/20 Two Impairment Pt cervical ROM limited to 35? flexion and 35? R rotation [facility] Goal (LTG) Pt to exhibit increased cervical ROM to 60? flexion and 55? right rotation in order for him to improve his ability to check for oncoming traffic while driving. LTG Duration 04/05/20 One Impairment Pt does not have an appropriate home exercise program Short Term Goal (STG) Pt to be independent and compliant with an appropriate HEP STG Duration 03/06/20 Assessment Summary Assessment Pt already showing signs of improvement with tone and ROM, tolerated treatment very well today, appears to be compliant with all aspects of HEP. Physical Therapy Plan Frequency and Duration Frequency of Treatment 2x/Week Duration of Treatment 10 weeks Plan of Care Start Date 02/04/20 Plan of Care End Date 04/14/20 Therapeutic Interventions Therapeutic Interventions Home Exercise Program,Joint Mobilizations,Manual Therapy, Patient/Caregiver Education, Self-Care/Home Management,Soft Tissue Mobilization, Therapeutic Activities, Therapeutic Exercises Modalities Cold Pack/Ice Massage,Electric Stimulation,Hot Packs, Ultrasound Next Visit Focus/Plan Next Note Type Treatment Note Next Visit Plan STM, ROM/Flexibility, Pain- control modalities, Manual traction
--- NOTE | 2020-02-11 15:19 | PT.OTN ---
Current Diagnoses Stiffness of unspecified joint, not elsewhere classified (02/11/20) Cervicalgia (02/11/20) Strain of muscle, fascia and tendon at neck level, initial encounter (02/11/20) Strain of muscle, fascia and tendon at neck level, subsequent encounter (02/11/20) Physical Therapy Treatment Note PT-OP-A Visit Information Start: 02/04/20 17:14 Freq: Status: Active Protocol: Document 02/11/20 14:30 DCW (Rec: 02/11/20 15:18 DCW [id number]) Out-Patient Physical Therapy Visit Information Visit Information Visit Type Treatment Note Visit Start Time 14:30 Visit Stop Time 15:15 Total Visit Minutes 45 Visit Number 3 Number of SKULL SPLITTER Visits 0 Evaluation Information Evaluation Date 02/04/20 PT-OP-B Current Condition Start: 02/04/20 17:14 Freq: Status: Active Protocol: Document 02/04/20 13:45 DCW (Rec: 02/04/20 17:48 DCW [id number]) Current Condition History of Current Condition Onset Date 1.5 months Current Complaints neck pain and stiffness History of Current Condition Pt is a 74 year old male presenting with a one and a half month history of neck pain and stiffness. Pt believes his pain started after washing the 3rd story windows on his house. Pt reports he has a long pole to wash them, and spent an extended period of time standing around in excessive cervical extension, and ever since then, has been having a lot of pain and muscle tightness. Pt does note that he has improved since his PCP visit one month ago. Notes that he has tried ice, heat, ibuprofen, and naproxen, but nothing has really helped. Admits that the pain overall doesn't prevent him from doing anything, but he hasn't tried any more window washing. PT-OP-C Subjective Start: 02/04/20 17:14 Freq: Status: Active Protocol: Document 02/11/20 14:30 DCW (Rec: 02/11/20 15:18 DCW [id number]) OP-PT Subjective Patient Comments Patient Comments I'm sore. Not hurt, just sore on both sides. I think it's mainly just because I'm moving it around stretching so much. PT-OP-F Manual Assessment Start: 02/04/20 17:14 Freq: Status: Active Protocol: Document 02/04/20 13:45 DCW (Rec: 02/04/20 17:48 DCW [id number]) Manual Assessments Soft Tissue Assessment Soft Tissue Mobility Assessment Moderate-Severe tone along left upper trap, scalenes, and SCM. Tenderness to palpation 2/4 - Pain with wincing Joint Mobility Assessment Joint Mobility Assessment Appropriate alignment and mobility of cervical vertebrae PT-OP-K Range of Motion Start: 02/04/20 17:14 Freq: Status: Active Protocol: Document 02/04/20 13:45 DCW (Rec: 02/04/20 17:48 DCW [id number]) Cervical Spine Range of Motion Cervical Spine Active Degrees Testing Position Sitting Flexion 35 Extension 30 Rotation Left 55 Rotation Right 35 Lateral Flexion Left 32 Lateral Flexion Right 25 ROM Limitations Soft Tissue Tightness,Muscle Tone,Pain PT-OP-L Special Tests Start: 02/04/20 17:14 Freq: Status: Active Protocol: Document 02/04/20 13:45 DCW (Rec: 02/04/20 17:48 DCW [id number]) Special Tests Cervical Spine Special Tests Traction Test Results Mild pain relief Spurling's Test Test Results Negative Slump Test Results Negative Foraminal Compression Test Results Negative PT-OP-Q Treatments Start: 02/04/20 17:14 Freq: Status: Active Protocol: Document 02/11/20 14:30 DCW (Rec: 02/11/20 15:18 DCW [id number]) Therapeutic Exercises Supine Exercises 2 Supine Exercise Name UT, Scalene stretching Side right Comments manual Standing Exercises 1 Standing Exercise Name Cervical extension isometric Resistance Lv 3 Equipment Used T-band Manual Therapy Treatment Soft Tissue Mobilization 3 Body Location Scalenes Mobilization Type Sustained Pressure,Trigger Point Release 2 Body Location Suboccipitals Mobilization Type Sustained Pressure 1 Body Location Upper Trap Mobilization Type Strumming,Sustained Pressure, Trigger Point Release Manual Traction Cervical Details Cervical Txn Body Position Supine PT-OP-R Modalities Start: 02/04/20 17:14 Freq: Status: Active Protocol: Document 02/07/20 13:45 DCW (Rec: 02/07/20 14:27 DCW [id number]) Hot Pack/Cold Pack Treatment Hot Pack Location R Cervical Patient Position Supine Treatment Duration (minutes) 10 PT-OP-T Assessment and Plan Start: 02/04/20 17:14 Freq: Status: Active Protocol: Document 02/11/20 14:30 DCW (Rec: 02/11/20 15:18 DCW [id number]) Physical Therapy Assessment Impairments Impairments Functional Activities, Functional Mobility,Pain, Posture,ROM,Soft Tissue Mobility,Tone Goals Three Impairment Pt displays moderate-severe tone through R UT, SCM, and Scalenes [facility] Goal (LTG) Pt to demonstrate reduced tone in cervical paraspinal musculature to mild LTG Duration 04/05/20 Two Impairment Pt cervical ROM limited to 35? flexion and 35? R rotation Good Humor Vendor Goal (LTG) Pt to exhibit increased cervical ROM to 60? flexion and 55? right rotation in order for him to improve his ability to check for oncoming traffic while driving. LTG Duration 04/05/20 One Impairment Pt does not have an appropriate home exercise program Short Term Goal (STG) Pt to be independent and compliant with an appropriate HEP STG Duration 03/06/20 Assessment Summary Assessment Pt continues to improve significantly. From eval, pt flexion has improved 20?, L/R rotation has improved 13?/20? respectively, and lateral flexion has improved L 8? and R 15?. Substantially lower tone along scalenes and upper trap. Physical Therapy Plan Frequency and Duration Frequency of Treatment 2x/Week Duration of Treatment 10 weeks Plan of Care Start Date 02/04/20 Plan of Care End Date 04/14/20 Therapeutic Interventions Therapeutic Interventions Home Exercise Program,Joint Mobilizations,Manual Therapy, Patient/Caregiver Education, Self-Care/Home Management,Soft Tissue Mobilization, Therapeutic Activities, Therapeutic Exercises Modalities Cold Pack/Ice Massage,Electric Stimulation,Hot Packs, Ultrasound Next Visit Focus/Plan Next Note Type Treatment Note Next Visit Plan STM, ROM/Flexibility, Pain- control modalities, Manual traction
--- NOTE | 2020-02-18 15:14 | PT.OTN ---
Current Diagnoses Stiffness of unspecified joint, not elsewhere classified (02/18/20) Cervicalgia (02/18/20) Strain of muscle, fascia and tendon at neck level, initial encounter (02/18/20) Strain of muscle, fascia and tendon at neck level, subsequent encounter (02/18/20) Physical Therapy Treatment Note PT-OP-A Visit Information Start: 02/04/20 17:14 Freq: Status: Active Protocol: Document 02/18/20 14:30 DCW (Rec: 02/18/20 15:13 DCW [id number]) Out-Patient Physical Therapy Visit Information Visit Information Visit Type Treatment Note Visit Start Time 14:30 Visit Stop Time 15:15 Total Visit Minutes 45 Visit Number 4 Number of TUFTING SUPERVISOR Visits 0 Evaluation Information Evaluation Date 02/04/20 PT-OP-B Current Condition Start: 02/04/20 17:14 Freq: Status: Active Protocol: Document 02/04/20 13:45 DCW (Rec: 02/04/20 17:48 DCW [id number]) Current Condition History of Current Condition Onset Date 1.5 months Current Complaints neck pain and stiffness History of Current Condition Pt is a 74 year old male presenting with a one and a half month history of neck pain and stiffness. Pt believes his pain started after washing the 3rd story windows on his house. Pt reports he has a long pole to wash them, and spent an extended period of time standing around in excessive cervical extension, and ever since then, has been having a lot of pain and muscle tightness. Pt does note that he has improved since his PCP visit one month ago. Notes that he has tried ice, heat, ibuprofen, and naproxen, but nothing has really helped. Admits that the pain overall doesn't prevent him from doing anything, but he hasn't tried any more window washing. PT-OP-C Subjective Start: 02/04/20 17:14 Freq: Status: Active Protocol: Document 02/18/20 14:30 DCW (Rec: 02/18/20 15:13 DCW [id number]) OP-PT Subjective Patient Comments Patient Comments Pt notes he is really pretty good. Most of the time, I don' t seem to have any sensation. Every now and then, it flares up, and lasts about an hour, but then it goes away and I forget about it, which is good , because I couldn't forget about it before. PT-OP-F Manual Assessment Start: 02/04/20 17:14 Freq: Status: Active Protocol: Document 02/04/20 13:45 DCW (Rec: 02/04/20 17:48 DCW [id number]) Manual Assessments Soft Tissue Assessment Soft Tissue Mobility Assessment Moderate-Severe tone along left upper trap, scalenes, and SCM. Tenderness to palpation 2/4 - Pain with wincing Joint Mobility Assessment Joint Mobility Assessment Appropriate alignment and mobility of cervical vertebrae PT-OP-K Range of Motion Start: 02/04/20 17:14 Freq: Status: Active Protocol: Document 02/04/20 13:45 DCW (Rec: 02/04/20 17:48 DCW [id number]) Cervical Spine Range of Motion Cervical Spine Active Degrees Testing Position Sitting Flexion 35 Extension 30 Rotation Left 55 Rotation Right 35 Lateral Flexion Left 32 Lateral Flexion Right 25 ROM Limitations Soft Tissue Tightness,Muscle Tone,Pain PT-OP-L Special Tests Start: 02/04/20 17:14 Freq: Status: Active Protocol: Document 02/04/20 13:45 DCW (Rec: 02/04/20 17:48 DCW [id number]) Special Tests Cervical Spine Special Tests Traction Test Results Mild pain relief Spurling's Test Test Results Negative Slump Test Results Negative Foraminal Compression Test Results Negative PT-OP-Q Treatments Start: 02/04/20 17:14 Freq: Status: Active Protocol: Document 02/18/20 14:30 DCW (Rec: 02/18/20 15:13 DCW [id number]) Manual Therapy Treatment Soft Tissue Mobilization 3 Body Location Scalenes Mobilization Type Sustained Pressure,Trigger Point Release 2 Body Location Suboccipitals Mobilization Type Sustained Pressure 1 Body Location Upper Trap Mobilization Type Strumming,Sustained Pressure, Trigger Point Release Manual Traction Cervical Details Cervical Txn Body Position Supine PT-OP-R Modalities Start: 02/04/20 17:14 Freq: Status: Active Protocol: Document 02/07/20 13:45 DCW (Rec: 02/07/20 14:27 DCW [id number]) Hot Pack/Cold Pack Treatment Hot Pack Location R Cervical Patient Position Supine Treatment Duration (minutes) 10 PT-OP-T Assessment and Plan Start: 02/04/20 17:14 Freq: Status: Active Protocol: Document 02/18/20 14:30 DCW (Rec: 02/18/20 15:13 DCW [id number]) Physical Therapy Assessment Impairments Impairments Functional Activities, Functional Mobility,Pain, Posture,ROM,Soft Tissue Mobility,Tone Goals Three Impairment Pt displays moderate-severe tone through R UT, SCM, and Scalenes Custodial Goal (LTG) Pt to demonstrate reduced tone in cervical paraspinal musculature to mild LTG Duration 04/05/20 Two Impairment Pt cervical ROM limited to 35? flexion and 35? R rotation Custodial Goal (LTG) Pt to exhibit increased cervical ROM to 60? flexion and 55? right rotation in order for him to improve his ability to check for oncoming traffic while driving. LTG Duration 04/05/20 One Impairment Pt does not have an appropriate home exercise program Short Term Goal (STG) Pt to be independent and compliant with an appropriate HEP STG Duration 03/06/20 Assessment Summary Assessment Pt doing very well, substantial decrease in tone, minimal discomfort with STM. Pt progressing in HEP. Physical Therapy Plan Frequency and Duration Frequency of Treatment 2x/Week Duration of Treatment 10 weeks Plan of Care Start Date 02/04/20 Plan of Care End Date 04/14/20 Therapeutic Interventions Therapeutic Interventions Home Exercise Program,Joint Mobilizations,Manual Therapy, Patient/Caregiver Education, Self-Care/Home Management,Soft Tissue Mobilization, Therapeutic Activities, Therapeutic Exercises Modalities Cold Pack/Ice Massage,Electric Stimulation,Hot Packs, Ultrasound Next Visit Focus/Plan Next Note Type Treatment Note Next Visit Plan STM, ROM/Flexibility, Pain- control modalities, Manual traction
--- NOTE | 2020-02-20 15:15 | PT.OTN ---
Current Diagnoses Stiffness of unspecified joint, not elsewhere classified (02/20/20) Cervicalgia (02/20/20) Strain of muscle, fascia and tendon at neck level, initial encounter (02/20/20) Strain of muscle, fascia and tendon at neck level, subsequent encounter (02/20/20) Physical Therapy Treatment Note PT-OP-A Visit Information Start: 02/04/20 17:14 Freq: Status: Active Protocol: Document 02/20/20 14:30 DCW (Rec: 02/20/20 15:15 DCW [id number]) Out-Patient Physical Therapy Visit Information Visit Information Visit Type Treatment Note Visit Start Time 14:30 Visit Stop Time 15:15 Total Visit Minutes 45 Visit Number 5 Number of COPPER MINER BLASTING Visits 0 Evaluation Information Evaluation Date 02/04/20 PT-OP-B Current Condition Start: 02/04/20 17:14 Freq: Status: Active Protocol: Document 02/04/20 13:45 DCW (Rec: 02/04/20 17:48 DCW [id number]) Current Condition History of Current Condition Onset Date 1.5 months Current Complaints neck pain and stiffness History of Current Condition Pt is a 74 year old male presenting with a one and a half month history of neck pain and stiffness. Pt believes his pain started after washing the 3rd story windows on his house. Pt reports he has a long pole to wash them, and spent an extended period of time standing around in excessive cervical extension, and ever since then, has been having a lot of pain and muscle tightness. Pt does note that he has improved since his PCP visit one month ago. Notes that he has tried ice, heat, ibuprofen, and naproxen, but nothing has really helped. Admits that the pain overall doesn't prevent him from doing anything, but he hasn't tried any more window washing. PT-OP-C Subjective Start: 02/04/20 17:14 Freq: Status: Active Protocol: Document 02/20/20 14:30 DCW (Rec: 02/20/20 15:15 DCW [id number]) OP-PT Subjective Patient Comments Patient Comments Pt notes he feels pretty good , his neck still tightens up occasionally, but then it stops, which is a big improvement in what it used to do. PT-OP-F Manual Assessment Start: 08/18/20 17:14 Freq: Status: Active Protocol: Document 02/04/20 13:45 DCW (Rec: 02/04/20 17:48 DCW [id number]) Manual Assessments Soft Tissue Assessment Soft Tissue Mobility Assessment Moderate-Severe tone along left upper trap, scalenes, and SCM. Tenderness to palpation 2/4 - Pain with wincing Joint Mobility Assessment Joint Mobility Assessment Appropriate alignment and mobility of cervical vertebrae PT-OP-K Range of Motion Start: 02/04/20 17:14 Freq: Status: Active Protocol: Document 02/04/20 13:45 DCW (Rec: 02/04/20 17:48 DCW [id number]) Cervical Spine Range of Motion Cervical Spine Active Degrees Testing Position Sitting Flexion 35 Extension 30 Rotation Left 55 Rotation Right 35 Lateral Flexion Left 32 Lateral Flexion Right 25 ROM Limitations Soft Tissue Tightness,Muscle Tone,Pain PT-OP-L Special Tests Start: 02/04/20 17:14 Freq: Status: Active Protocol: Document 02/04/20 13:45 DCW (Rec: 02/04/20 17:48 DCW [id number]) Special Tests Cervical Spine Special Tests Traction Test Results Mild pain relief Spurling's Test Test Results Negative Slump Test Results Negative Foraminal Compression Test Results Negative PT-OP-Q Treatments Start: 02/04/20 17:14 Freq: Status: Active Protocol: Document 02/20/20 14:30 DCW (Rec: 02/20/20 15:15 DCW [id number]) Therapeutic Exercises Supine Exercises 2 Supine Exercise Name UT, Scalene stretching Side right Comments manual Manual Therapy Treatment Soft Tissue Mobilization 3 Body Location Scalenes Mobilization Type Sustained Pressure,Trigger Point Release 2 Body Location Suboccipitals Mobilization Type Sustained Pressure 1 Body Location Upper Trap Mobilization Type Strumming,Sustained Pressure, Trigger Point Release Manual Traction Cervical Details Cervical Txn Body Position Supine PT-OP-R Modalities Start: 02/04/20 17:14 Freq: Status: Active Protocol: Document 02/07/20 13:45 DCW (Rec: 02/07/20 14:27 DCW [id number]) Hot Pack/Cold Pack Treatment Hot Pack Location R Cervical Patient Position Supine Treatment Duration (minutes) 10 PT-OP-T Assessment and Plan Start: 02/04/20 17:14 Freq: Status: Active Protocol: Document 02/20/20 14:30 DCW (Rec: 02/20/20 15:15 DCW [id number]) Physical Therapy Assessment Impairments Impairments Functional Activities, Functional Mobility,Pain, Posture,ROM,Soft Tissue Mobility,Tone Goals Three Impairment Pt displays moderate-severe tone through R UT, SCM, and Scalenes Care Home Goal (LTG) Pt to demonstrate reduced tone in cervical paraspinal musculature to mild LTG Duration 04/05/20 Two Impairment Pt cervical ROM limited to 35? flexion and 35? R rotation Hematology Technologist Goal (LTG) Pt to exhibit increased cervical ROM to 60? flexion and 55? right rotation in order for him to improve his ability to check for oncoming traffic while driving. LTG Duration 04/05/20 One Impairment Pt does not have an appropriate home exercise program Short Term Goal (STG) Pt to be independent and compliant with an appropriate HEP STG Duration 03/06/20 Assessment Summary Assessment Pt showing great improvement so far, doing very well with HEP, showing significant decline in tone. Physical Therapy Plan Frequency and Duration Frequency of Treatment 2x/Week Duration of Treatment 10 weeks Plan of Care Start Date 02/04/20 Plan of Care End Date 04/14/20 Therapeutic Interventions Therapeutic Interventions Home Exercise Program,Joint Mobilizations,Manual Therapy, Patient/Caregiver Education, Self-Care/Home Management,Soft Tissue Mobilization, Therapeutic Activities, Therapeutic Exercises Modalities Cold Pack/Ice Massage,Electric Stimulation,Hot Packs, Ultrasound Next Visit Focus/Plan Next Note Type Treatment Note Next Visit Plan STM, ROM/Flexibility, Pain- control modalities, Manual traction
--- NOTE | 2020-02-20 15:15 | PT.OTN ---
Current Diagnoses Stiffness of unspecified joint, not elsewhere classified (02/20/20) Cervicalgia (02/20/20) Strain of muscle, fascia and tendon at neck level, initial encounter (02/20/20) Strain of muscle, fascia and tendon at neck level, subsequent encounter (02/20/20) Physical Therapy Treatment Note PT-OP-A Visit Information Start: 02/04/20 17:14 Freq: Status: Active Protocol: Document 02/20/20 14:30 DCW (Rec: 02/20/20 15:15 DCW [id number]) Out-Patient Physical Therapy Visit Information Visit Information Visit Type Treatment Note Visit Start Time 14:30 Visit Stop Time 15:15 Total Visit Minutes 45 Visit Number 5 Number of SCHEDULE MAKER Visits 0 Evaluation Information Evaluation Date 02/04/20 PT-OP-B Current Condition Start: 02/04/20 17:14 Freq: Status: Active Protocol: Document 02/04/20 13:45 DCW (Rec: 02/04/20 17:48 DCW [id number]) Current Condition History of Current Condition Onset Date 1.5 months Current Complaints neck pain and stiffness History of Current Condition Pt is a 74 year old male presenting with a one and a half month history of neck pain and stiffness. Pt believes his pain started after washing the 3rd story windows on his house. Pt reports he has a long pole to wash them, and spent an extended period of time standing around in excessive cervical extension, and ever since then, has been having a lot of pain and muscle tightness. Pt does note that he has improved since his PCP visit one month ago. Notes that he has tried ice, heat, ibuprofen, and naproxen, but nothing has really helped. Admits that the pain overall doesn't prevent him from doing anything, but he hasn't tried any more window washing. PT-OP-C Subjective Start: 02/04/20 17:14 Freq: Status: Active Protocol: Document 02/20/20 14:30 DCW (Rec: 02/20/20 15:15 DCW [id number]) OP-PT Subjective Patient Comments Patient Comments Pt notes he feels pretty good , his neck still tightens up occasionally, but then it stops, which is a big improvement in what it used to do. PT-OP-F Manual Assessment Start: 08/18/20 17:14 Freq: Status: Active Protocol: Document 02/04/20 13:45 DCW (Rec: 02/04/20 17:48 DCW [id number]) Manual Assessments Soft Tissue Assessment Soft Tissue Mobility Assessment Moderate-Severe tone along left upper trap, scalenes, and SCM. Tenderness to palpation 2/4 - Pain with wincing Joint Mobility Assessment Joint Mobility Assessment Appropriate alignment and mobility of cervical vertebrae PT-OP-K Range of Motion Start: 02/04/20 17:14 Freq: Status: Active Protocol: Document 02/04/20 13:45 DCW (Rec: 02/04/20 17:48 DCW [id number]) Cervical Spine Range of Motion Cervical Spine Active Degrees Testing Position Sitting Flexion 35 Extension 30 Rotation Left 55 Rotation Right 35 Lateral Flexion Left 32 Lateral Flexion Right 25 ROM Limitations Soft Tissue Tightness,Muscle Tone,Pain PT-OP-L Special Tests Start: 02/04/20 17:14 Freq: Status: Active Protocol: Document 02/04/20 13:45 DCW (Rec: 02/04/20 17:48 DCW [id number]) Special Tests Cervical Spine Special Tests Traction Test Results Mild pain relief Spurling's Test Test Results Negative Slump Test Results Negative Foraminal Compression Test Results Negative PT-OP-Q Treatments Start: 02/04/20 17:14 Freq: Status: Active Protocol: Document 02/20/20 14:30 DCW (Rec: 02/20/20 15:15 DCW [id number]) Therapeutic Exercises Supine Exercises 2 Supine Exercise Name UT, Scalene stretching Side right Comments manual Manual Therapy Treatment Soft Tissue Mobilization 3 Body Location Scalenes Mobilization Type Sustained Pressure,Trigger Point Release 2 Body Location Suboccipitals Mobilization Type Sustained Pressure 1 Body Location Upper Trap Mobilization Type Strumming,Sustained Pressure, Trigger Point Release Manual Traction Cervical Details Cervical Txn Body Position Supine PT-OP-R Modalities Start: 02/04/20 17:14 Freq: Status: Active Protocol: Document 02/07/20 13:45 DCW (Rec: 02/07/20 14:27 DCW [id number]) Hot Pack/Cold Pack Treatment Hot Pack Location R Cervical Patient Position Supine Treatment Duration (minutes) 10 PT-OP-T Assessment and Plan Start: 02/04/20 17:14 Freq: Status: Active Protocol: Document 02/20/20 14:30 DCW (Rec: 02/20/20 15:15 DCW [id number]) Physical Therapy Assessment Impairments Impairments Functional Activities, Functional Mobility,Pain, Posture,ROM,Soft Tissue Mobility,Tone Goals Three Impairment Pt displays moderate-severe tone through R UT, SCM, and Scalenes Prison Goal (LTG) Pt to demonstrate reduced tone in cervical paraspinal musculature to mild LTG Duration 04/05/20 Two Impairment Pt cervical ROM limited to 35? flexion and 35? R rotation Nurse Sitter Goal (LTG) Pt to exhibit increased cervical ROM to 60? flexion and 55? right rotation in order for him to improve his ability to check for oncoming traffic while driving. LTG Duration 04/05/20 One Impairment Pt does not have an appropriate home exercise program Short Term Goal (STG) Pt to be independent and compliant with an appropriate HEP STG Duration 03/06/20 Assessment Summary Assessment Pt showing great improvement so far, doing very well with HEP, showing significant decline in tone. Physical Therapy Plan Frequency and Duration Frequency of Treatment 2x/Week Duration of Treatment 10 weeks Plan of Care Start Date 02/04/20 Plan of Care End Date 04/14/20 Therapeutic Interventions Therapeutic Interventions Home Exercise Program,Joint Mobilizations,Manual Therapy, Patient/Caregiver Education, Self-Care/Home Management,Soft Tissue Mobilization, Therapeutic Activities, Therapeutic Exercises Modalities Cold Pack/Ice Massage,Electric Stimulation,Hot Packs, Ultrasound Next Visit Focus/Plan Next Note Type Treatment Note Next Visit Plan STM, ROM/Flexibility, Pain- control modalities, Manual traction
--- NOTE | 2020-03-13 16:47 | PT.OTN ---
Current Diagnoses Stiffness of unspecified joint, not elsewhere classified (03/13/20) Cervicalgia (03/13/20) Strain of muscle, fascia and tendon at neck level, initial encounter (03/13/20) Strain of muscle, fascia and tendon at neck level, subsequent encounter (03/13/20) Physical Therapy Treatment Note PT-OP-A Visit Information Start: 02/04/20 17:14 Freq: Status: Active Protocol: Document 03/13/20 16:00 DCW (Rec: 03/13/20 16:46 DCW [id number]) Out-Patient Physical Therapy Visit Information Visit Information Visit Type Treatment Note Visit Start Time 16:00 Visit Stop Time 16:45 Total Visit Minutes 45 Visit Number 6 Number of MUCK HAULER Visits 0 Evaluation Information Evaluation Date 02/04/20 PT-OP-B Current Condition Start: 02/04/20 17:14 Freq: Status: Active Protocol: Document 02/04/20 13:45 DCW (Rec: 02/04/20 17:48 DCW [id number]) Current Condition History of Current Condition Onset Date 1.5 months Current Complaints neck pain and stiffness History of Current Condition Pt is a 74 year old male presenting with a one and a half month history of neck pain and stiffness. Pt believes his pain started after washing the 3rd story windows on his house. Pt reports he has a long pole to wash them, and spent an extended period of time standing around in excessive cervical extension, and ever since then, has been having a lot of pain and muscle tightness. Pt does note that he has improved since his PCP visit one month ago. Notes that he has tried ice, heat, ibuprofen, and naproxen, but nothing has really helped. Admits that the pain overall doesn't prevent him from doing anything, but he hasn't tried any more window washing. PT-OP-C Subjective Start: 02/04/20 17:14 Freq: Status: Active Protocol: Document 03/13/20 16:00 DCW (Rec: 03/13/20 16:46 DCW [id number]) OP-PT Subjective Patient Comments Patient Comments Pt notes he is really pretty good. I don't really even think about it throughout the day, until I exercise it, and it's a little sore, but then it goes away. PT-OP-F Manual Assessment Start: 02/04/20 17:14 Freq: Status: Active Protocol: Document 02/04/20 13:45 DCW (Rec: 02/04/20 17:48 DCW [id number]) Manual Assessments Soft Tissue Assessment Soft Tissue Mobility Assessment Moderate-Severe tone along left upper trap, scalenes, and SCM. Tenderness to palpation 2/4 - Pain with wincing Joint Mobility Assessment Joint Mobility Assessment Appropriate alignment and mobility of cervical vertebrae PT-OP-K Range of Motion Start: 02/04/20 17:14 Freq: Status: Active Protocol: Document 02/04/20 13:45 DCW (Rec: 02/04/20 17:48 DCW [id number]) Cervical Spine Range of Motion Cervical Spine Active Degrees Testing Position Sitting Flexion 35 Extension 30 Rotation Left 55 Rotation Right 35 Lateral Flexion Left 32 Lateral Flexion Right 25 ROM Limitations Soft Tissue Tightness,Muscle Tone,Pain PT-OP-L Special Tests Start: 02/04/20 17:14 Freq: Status: Active Protocol: Document 02/04/20 13:45 DCW (Rec: 02/04/20 17:48 DCW [id number]) Special Tests Cervical Spine Special Tests Traction Test Results Mild pain relief Spurling's Test Test Results Negative Slump Test Results Negative Foraminal Compression Test Results Negative PT-OP-Q Treatments Start: 02/04/20 17:14 Freq: Status: Active Protocol: Document 03/13/20 16:00 DCW (Rec: 03/13/20 16:46 DCW [id number]) Manual Therapy Treatment Soft Tissue Mobilization 3 Body Location Scalenes Mobilization Type Sustained Pressure,Trigger Point Release 2 Body Location Suboccipitals Mobilization Type Sustained Pressure 1 Body Location Upper Trap Mobilization Type Strumming,Sustained Pressure, Trigger Point Release Manual Traction Cervical Details Cervical Txn Body Position Supine PT-OP-R Modalities Start: 02/04/20 17:14 Freq: Status: Active Protocol: Document 02/07/20 13:45 DCW (Rec: 02/07/20 14:27 DCW [id number]) Hot Pack/Cold Pack Treatment Hot Pack Location R Cervical Patient Position Supine Treatment Duration (minutes) 10 PT-OP-T Assessment and Plan Start: 02/04/20 17:14 Freq: Status: Active Protocol: Document 03/13/20 16:00 DCW (Rec: 03/13/20 16:46 MELO [id number]) Physical Therapy Assessment Impairments Impairments Functional Activities, Functional Mobility,Pain, Posture,ROM,Soft Tissue Mobility,Tone Goals Three Impairment Pt displays moderate-severe tone through R UT, SCM, and Scalenes Intermediate Goal (LTG) Pt to demonstrate reduced tone in cervical paraspinal musculature to mild LTG Duration 04/05/20 Two Impairment Pt cervical ROM limited to 35? flexion and 35? R rotation Intermediate Goal (LTG) Pt to exhibit increased cervical ROM to 60? flexion and 55? right rotation in order for him to improve his ability to check for oncoming traffic while driving. LTG Duration 04/05/20 One Impairment Pt does not have an appropriate home exercise program Short Term Goal (STG) Pt to be independent and compliant with an appropriate HEP STG Duration 03/06/20 Assessment Summary Assessment Pt no longer displaying any of the continued signs or symptoms which he originally presented with. Pt to return to PT next week, with plan for potential discharge if progress continues. Physical Therapy Plan Frequency and Duration Frequency of Treatment 2x/Week Duration of Treatment 10 weeks Plan of Care Start Date 02/04/20 Plan of Care End Date 04/14/20 Therapeutic Interventions Therapeutic Interventions Home Exercise Program,Joint Mobilizations,Manual Therapy, Patient/Caregiver Education, Self-Care/Home Management,Soft Tissue Mobilization, Therapeutic Activities, Therapeutic Exercises Modalities Cold Pack/Ice Massage,Electric Stimulation,Hot Packs, Ultrasound Next Visit Focus/Plan Next Note Type Treatment Note Next Visit Plan STM, ROM/Flexibility, Pain- control modalities, Manual traction
--- NOTE | 2020-03-20 11:59 | PT.OTN ---
Current Diagnoses Stiffness of unspecified joint, not elsewhere classified (03/20/20) Cervicalgia (03/20/20) Strain of muscle, fascia and tendon at neck level, initial encounter (03/20/20) Strain of muscle, fascia and tendon at neck level, subsequent encounter (03/20/20) Physical Therapy Treatment Note PT-OP-A Visit Information Start: 02/04/20 17:14 Freq: Status: Active Protocol: Document 03/20/20 11:15 DCW (Rec: 03/20/20 11:59 DCW [id number]) Out-Patient Physical Therapy Visit Information Visit Information Visit Type Treatment Note Visit Start Time 11:15 Visit Stop Time 12:00 Total Visit Minutes 45 Visit Number 7 Number of INSTALLATION SPECIALIST Visits 0 Evaluation Information Evaluation Date 02/04/20 PT-OP-B Current Condition Start: 02/04/20 17:14 Freq: Status: Active Protocol: Document 02/04/20 13:45 DCW (Rec: 02/04/20 17:48 DCW [id number]) Current Condition History of Current Condition Onset Date 1.5 months Current Complaints neck pain and stiffness History of Current Condition Pt is a 74 year old male presenting with a one and a half month history of neck pain and stiffness. Pt believes his pain started after washing the 3rd story windows on his house. Pt reports he has a long pole to wash them, and spent an extended period of time standing around in excessive cervical extension, and ever since then, has been having a lot of pain and muscle tightness. Pt does note that he has improved since his PCP visit one month ago. Notes that he has tried ice, heat, ibuprofen, and naproxen, but nothing has really helped. Admits that the pain overall doesn't prevent him from doing anything, but he hasn't tried any more window washing. PT-OP-C Subjective Start: 02/04/20 17:14 Freq: Status: Active Protocol: Document 03/20/20 11:15 DCW (Rec: 03/20/20 11:59 DCW [id number]) OP-PT Subjective Patient Comments Patient Comments It's not perfect, but I'm not getting any of those shooters like I was. Most of the discomfort is after the exercises. Other than that, I' m getting along pretty well. PT-OP-F Manual Assessment Start: 02/04/20 17:14 Freq: Status: Active Protocol: Document 02/04/20 13:45 DCW (Rec: 02/04/20 17:48 DCW [id number]) Manual Assessments Soft Tissue Assessment Soft Tissue Mobility Assessment Moderate-Severe tone along left upper trap, scalenes, and SCM. Tenderness to palpation 2/4 - Pain with wincing Joint Mobility Assessment Joint Mobility Assessment Appropriate alignment and mobility of cervical vertebrae PT-OP-K Range of Motion Start: 02/04/20 17:14 Freq: Status: Active Protocol: Document 02/04/20 13:45 DCW (Rec: 02/04/20 17:48 DCW [id number]) Cervical Spine Range of Motion Cervical Spine Active Degrees Testing Position Sitting Flexion 35 Extension 30 Rotation Left 55 Rotation Right 35 Lateral Flexion Left 32 Lateral Flexion Right 25 ROM Limitations Soft Tissue Tightness,Muscle Tone,Pain PT-OP-L Special Tests Start: 02/04/20 17:14 Freq: Status: Active Protocol: Document 02/04/20 13:45 DCW (Rec: 02/04/20 17:48 DCW [id number]) Special Tests Cervical Spine Special Tests Traction Test Results Mild pain relief Spurling's Test Test Results Negative Slump Test Results Negative Foraminal Compression Test Results Negative PT-OP-Q Treatments Start: 02/04/20 17:14 Freq: Status: Active Protocol: Document 03/20/20 11:15 DCW (Rec: 03/20/20 11:59 DCW [id number]) Manual Therapy Treatment Soft Tissue Mobilization 3 Body Location Scalenes Mobilization Type Sustained Pressure,Trigger Point Release 2 Body Location Suboccipitals Mobilization Type Sustained Pressure 1 Body Location Upper Trap Mobilization Type Strumming,Sustained Pressure, Trigger Point Release Manual Traction Cervical Details Cervical Txn Body Position Supine PT-OP-R Modalities Start: 02/04/20 17:14 Freq: Status: Active Protocol: Document 02/07/20 13:45 DCW (Rec: 02/07/20 14:27 DCW [id number]) Hot Pack/Cold Pack Treatment Hot Pack Location R Cervical Patient Position Supine Treatment Duration (minutes) 10 PT-OP-T Assessment and Plan Start: 02/04/20 17:14 Freq: Status: Active Protocol: Document 03/20/20 11:15 DCW (Rec: 03/20/20 11:59 DCW [id number]) Physical Therapy Assessment Impairments Impairments Functional Activities, Functional Mobility,Pain, Posture,ROM,Soft Tissue Mobility,Tone Goals Three Impairment Pt displays moderate-severe tone through R UT, SCM, and Scalenes Manager Business Process Goal (LTG) Pt to demonstrate reduced tone in cervical paraspinal musculature to mild LTG Duration 04/05/20 Two Impairment Pt cervical ROM limited to 35? flexion and 35? R rotation Manager Business Process Goal (LTG) Pt to exhibit increased cervical ROM to 60? flexion and 55? right rotation in order for him to improve his ability to check for oncoming traffic while driving. LTG Duration 04/05/20 One Impairment Pt does not have an appropriate home exercise program Short Term Goal (STG) Pt to be independent and compliant with an appropriate HEP STG Duration 03/06/20 Assessment Summary Assessment Pt still doing well. Will likely discharge from PT after next visit, plan to do some STM and then perform objective measurements. Physical Therapy Plan Frequency and Duration Frequency of Treatment 2x/Week Duration of Treatment 10 weeks Plan of Care Start Date 02/04/20 Plan of Care End Date 04/14/20 Therapeutic Interventions Therapeutic Interventions Home Exercise Program,Joint Mobilizations,Manual Therapy, Patient/Caregiver Education, Self-Care/Home Management,Soft Tissue Mobilization, Therapeutic Activities, Therapeutic Exercises Modalities Cold Pack/Ice Massage,Electric Stimulation,Hot Packs, Ultrasound Next Visit Focus/Plan Next Note Type Treatment Note Next Visit Plan STM, ROM/Flexibility, Pain- control modalities, Manual traction
--- NOTE | 2020-03-27 11:08 | PT.OTN ---
Current Diagnoses Stiffness of unspecified joint, not elsewhere classified (03/27/20) Cervicalgia (03/27/20) Strain of muscle, fascia and tendon at neck level, initial encounter (03/27/20) Strain of muscle, fascia and tendon at neck level, subsequent encounter (03/27/20) Physical Therapy Treatment Note PT-OP-A Visit Information Start: 02/04/20 17:14 Freq: Status: Active Protocol: Document 03/27/20 10:30 DCW (Rec: 03/27/20 10:50 DCW [id number]) Out-Patient Physical Therapy Visit Information Visit Information Visit Type Treatment Note Visit Start Time 10:30 Visit Stop Time 11:00 Total Visit Minutes 30 Visit Number 8 Number of OUTSIDE PLANT ENGINEER Visits 0 Evaluation Information Evaluation Date 02/04/20 PT-OP-B Current Condition Start: 02/04/20 17:14 Freq: Status: Active Protocol: Document 02/04/20 13:45 DCW (Rec: 02/04/20 17:48 DCW [id number]) Current Condition History of Current Condition Onset Date 1.5 months Current Complaints neck pain and stiffness History of Current Condition Pt is a 74 year old male presenting with a one and a half month history of neck pain and stiffness. Pt believes his pain started after washing the 3rd story windows on his house. Pt reports he has a long pole to wash them, and spent an extended period of time standing around in excessive cervical extension, and ever since then, has been having a lot of pain and muscle tightness. Pt does note that he has improved since his PCP visit one month ago. Notes that he has tried ice, heat, ibuprofen, and naproxen, but nothing has really helped. Admits that the pain overall doesn't prevent him from doing anything, but he hasn't tried any more window washing. PT-OP-C Subjective Start: 02/04/20 17:14 Freq: Status: Active Protocol: Document 03/27/20 10:30 DCW (Rec: 03/27/20 10:50 DCW [id number]) OP-PT Subjective Patient Comments Patient Comments Actually, it has improved. Last week I was confident it would be okay, but it has even better this past week. PT-OP-F Manual Assessment Start: 02/04/20 17:14 Freq: Status: Active Protocol: Document 03/27/20 10:30 DCW (Rec: 03/27/20 10:54 DCW [id number]) Manual Assessments Soft Tissue Assessment Soft Tissue Mobility Assessment Mild tone along bilateral upper trap, scalenes, and SCM. Tenderness to palpation 0/4 - No complaint of pain PT-OP-K Range of Motion Start: 02/04/20 17:14 Freq: Status: Active Protocol: Document 03/27/20 10:30 DCW (Rec: 03/27/20 10:54 DCW [id number]) Cervical Spine Range of Motion Cervical Spine Active Degrees Testing Position Sitting Flexion 60 Extension 40 Rotation Left 68 Rotation Right 65 Lateral Flexion Left 45 Lateral Flexion Right 45 PT-OP-L Special Tests Start: 02/04/20 17:14 Freq: Status: Active Protocol: Document 02/04/20 13:45 DCW (Rec: 02/04/20 17:48 DCW [id number]) Special Tests Cervical Spine Special Tests Traction Test Results Mild pain relief Spurling's Test Test Results Negative Slump Test Results Negative Foraminal Compression Test Results Negative PT-OP-Q Treatments Start: 02/04/20 17:14 Freq: Status: Active Protocol: Document 03/27/20 10:30 DCW (Rec: 03/27/20 11:07 DCW [id number]) Manual Therapy Treatment Soft Tissue Mobilization 3 Body Location Scalenes Mobilization Type Sustained Pressure,Trigger Point Release 2 Body Location Suboccipitals Mobilization Type Sustained Pressure 1 Body Location Upper Trap Mobilization Type Strumming,Sustained Pressure, Trigger Point Release PT-OP-R Modalities Start: 02/04/20 17:14 Freq: Status: Active Protocol: Document 02/07/20 13:45 DCW (Rec: 02/07/20 14:27 DCW [id number]) Hot Pack/Cold Pack Treatment Hot Pack Location R Cervical Patient Position Supine Treatment Duration (minutes) 10 PT-OP-T Assessment and Plan Start: 02/04/20 17:14 Freq: Status: Active Protocol: Document 03/27/20 10:30 DCW (Rec: 03/27/20 11:07 DCW [id number]) Physical Therapy Assessment Impairments Impairments Functional Activities, Functional Mobility,Pain, Posture,ROM,Soft Tissue Mobility,Tone Goals Three Impairment Pt displays moderate-severe tone through R UT, SCM, and Scalenes Residential Goal (LTG) Pt to demonstrate reduced tone in cervical paraspinal musculature to mild LTG Duration Met Two Impairment Pt cervical ROM limited to 35? flexion and 35? R rotation Power Generation Engineer Goal (LTG) Pt to exhibit increased cervical ROM to 60? flexion and 55? right rotation in order for him to improve his ability to check for oncoming traffic while driving. LTG Duration Met One Impairment Pt does not have an appropriate home exercise program Short Term Goal (STG) Pt to be independent and compliant with an appropriate HEP STG Duration Met Progress Towards Goals Progress Towards Goals Goals Met Assessment Summary Assessment Pt met all goals, not experiencing any further symptoms. Pt will be discharged from skilled therapy today. Physical Therapy Plan Frequency and Duration Frequency of Treatment 2x/Week Duration of Treatment 10 weeks Plan of Care Start Date 02/04/20 Plan of Care End Date 04/14/20 Therapeutic Interventions Therapeutic Interventions Home Exercise Program,Joint Mobilizations,Manual Therapy, Patient/Caregiver Education, Self-Care/Home Management,Soft Tissue Mobilization, Therapeutic Activities, Therapeutic Exercises Modalities Cold Pack/Ice Massage,Electric Stimulation,Hot Packs, Ultrasound Discharge Physical Therapy Discharge Reasons Goals Met Next Visit Focus/Plan Next Note Type Discharge Summary
== END 2020-04-03 15:11 ==
LOC: PHYS 10:30
PROVIDERS: PCP Nurse Practitioner Family; Referring Provider Nurse Practitioner Family; Visit Provider Nurse Practitioner Family
DX: S16.1XXD Strain of muscle, fascia and tendon at neck level, subsequent encounter (principal); M25.60 Stiffness of unspecified joint, not elsewhere classified; M54.2 Cervicalgia; S16.1XXA Strain of muscle, fascia and tendon at neck level, initial encounter
CPT/HCPCS: 97110; 97140; 97161

== ENCOUNTER → 2020-03-31 12:08 | Outpatient (CLI) | payer MEDICARE, OTHER, SELFPAY ==
--- NOTE | 2020-03-31 12:09 | DI.RAD.S_ITS ---
PROCEDURE: XR FOOT LT MIN 3V INDICATIONS: left foot pain, bruising TECHNIQUE: 3 views of the foot were acquired. COMPARISON: None. FINDINGS: Bones: No fractures or dislocations. No suspicious bony lesions. Scattered IP degenerative changes are present most notable at the 1st DIP joint with areas of subchondral sclerosis. Prominent osteophytes are noted at the base of the distal 1st phalanx. There is a small area of lucency identified at the proximal base of the distal phalanx seen only on one view. Soft tissues: No tibiotalar joint effusion. Achilles tendon appears normal. IMPRESSION: This could represent an area of degenerative lucency given presence of osteophyte. However, given history of trauma, nondisplaced fracture cannot be excluded. Recommend correlating 2 point tenderness in short interval imaging follow-up as indicated. Dictated by: Heavenly Huitron M.D. on 03/31/2020 at 17:05 Approved by: Heavenly Huitron M.D. on 03/31/2020 at 17:07
== END ==
PROVIDERS: PCP Nurse Practitioner Family; Referring Provider Nurse Practitioner Family; Visit Provider Nurse Practitioner Family
DX: M79.672 Pain in left foot (principal)
CPT/HCPCS: 73630

== ENCOUNTER → 2020-07-14 15:12 | Outpatient (CLI) | payer MEDICARE, OTHER, SELFPAY ==
[2020-07-14] MEDS: COVID-19 VACC #1, MRNA(MOD) 100 MCG/0.5 ML VIAL IM (15:20)
== END ==
PROVIDERS: PCP Nurse Practitioner Family; Visit Provider Internal Medicine
DX: Z23 Encounter for immunization (principal)
CPT/HCPCS: 0011A; 91301

== ENCOUNTER → 2020-08-11 15:26 | Outpatient (CLI) | payer MEDICARE, OTHER, SELFPAY ==
[2020-08-11] MEDS: COVID-19 VACC #2, MRNA(MOD) 100 MCG/0.5 ML VIAL IM (15:35)
== END ==
PROVIDERS: PCP Nurse Practitioner Family; Visit Provider Internal Medicine
DX: Z23 Encounter for immunization (principal)
CPT/HCPCS: 0012A; 91301

== ENCOUNTER → 2020-09-18 06:49 | Outpatient (CLI) | payer MEDICARE, OTHER, SELFPAY ==
[2020-09-18 08:16] LABS: Hemoglobin 13.8 g/dL (13.5-17.5); Mean Corpuscular HGB Conc 32.9 % (30-36); Mean Corpuscular Hemoglobin 32.9 PG (26-34); Mean Corpuscular Volume 99.8 fL (80-100); Platelet Count 165 X10^3/uL (150-400); Red Blood Cell Count 4.21 X10^6/uL (4.5-5.9); Red Cell Distribution Width 14.3 % (11.6-14.8); White Blood Cell Count 4.5 X10^3/uL (4.5-11.0)
[2020-09-18 08:42] LABS: Alanine Aminotransferase 23 IU/L (<50); Albumin Globulin Ratio 1.5 (1.0-2.8); Alkaline Phosphatase 52 U/L (38-126); Aspartate Aminotransferase 26 IU/L (17-59); Bilirubin Total 0.7 mg/dL (0.2-1.3); Blood Urea Nitrogen 32 mg/dL (9-20); Calcium 9.2 mg/dL (8.4-10.2); Carbon Dioxide 30 mmol/L (22-32); Chloride 103 mmol/L (98-107); Cholesterol 173 mg/dL (140-199); Estimated Glomerular Filt Rate > 60.0 mL/min (>60); Globulin 2.6 g/dL (1.7-4.1); Glucose 94 mg/dL (80-110); HDL Cholesterol 103 mg/dL (40-60); HEMOLYSIS < 15 (0-50); LDL Cholesterol Calculated 62 mg/dL (<100); Potassium 4.2 mmol/L (3.4-5.1); Sodium 139 mmol/L (137-145); Total Protein 6.6 g/dL (6.3-8.2); Triglycerides 40 mg/dL (35-150); Uric Acid 3.7 mg/dL (3.5-8.5)
== END ==
PROVIDERS: PCP Nurse Practitioner Family; Referring Provider Nurse Practitioner Family; Visit Provider Nurse Practitioner Family
DX: E78.00 Pure hypercholesterolemia, unspecified (principal); I10 Essential (primary) hypertension; M10.9 Gout, unspecified
CPT/HCPCS: 36415; 80053; 80061; 84550; 85027

== ENCOUNTER → 2021-01-06 06:49 | Outpatient (CLI) | payer MEDICARE, OTHER, SELFPAY ==
[2021-01-06 08:22] LABS: Prostate Specific Antigen 2.04 ng/mL (0.10-4.00)
== END ==
PROVIDERS: PCP Nurse Practitioner Family; Referring Provider Urology; Visit Provider Urology
DX: R35.1 Nocturia (principal)
CPT/HCPCS: 36415; 84153

== ENCOUNTER → 2021-03-01 06:44 | Outpatient (CLI) | payer MEDICARE, OTHER, SELFPAY ==
[2021-03-01 08:24] LABS: Hematocrit 42.9 % (41-53); Hemoglobin 14.6 g/dL (13.5-17.5); Mean Corpuscular Hemoglobin 33.8 PG (26-34); Mean Corpuscular Volume 99.3 fL (80-100); Platelet Count 150 X10^3/uL (150-400); Red Blood Cell Count 4.32 X10^6/uL (4.5-5.9); White Blood Cell Count 4.1 X10^3/uL (4.5-11.0)
[2021-03-01 08:45] LABS: Alanine Aminotransferase 20 IU/L (<50); Albumin 4.1 g/dL (3.5-5.0); Albumin Globulin Ratio 1.5 (1.0-2.8); Alkaline Phosphatase 56 U/L (38-126); Aspartate Aminotransferase 30 IU/L (17-59); BUN Creatinine Ratio 37.5 (6-22); Bilirubin Total 0.6 mg/dL (0.2-1.3); Blood Urea Nitrogen 27 mg/dL (9-20); Calcium 9.1 mg/dL (8.4-10.2); Carbon Dioxide 24 mmol/L (22-32); Chloride 107 mmol/L (98-107); Estimated Glomerular Filt Rate > 60.0 mL/min (>60); Globulin 2.8 g/dL (1.7-4.1); Glucose 90 mg/dL (80-110); HEMOLYSIS 27 (0-50); Potassium 4.1 mmol/L (3.4-5.1); Sodium 137 mmol/L (137-145); Total Protein 6.9 g/dL (6.3-8.2)
== END ==
PROVIDERS: PCP Nurse Practitioner Family; Referring Provider Nurse Practitioner Family; Visit Provider Nurse Practitioner Family
DX: Z00.00 Encounter for general adult medical examination without abnormal findings (principal); I10 Essential (primary) hypertension
CPT/HCPCS: 36415; 80053; 85027

== ENCOUNTER → 2021-03-08 08:53 | Outpatient (CLI) | payer MEDICARE, OTHER, SELFPAY ==
--- NOTE | 2021-03-08 08:55 | DI.US.S_ITS ---
PROCEDURE: US ABD AORTA ANEURYSM SCREEN INDICATIONS: SCREENING TECHNIQUE: Real time scanning was performed of the aorta and iliac arteries, with image documentation. COMPARISON: None. FINDINGS: Aorta: Proximal aortic diameter measures 2.6 cm. Mid-aorta measures 2.3 cm. Distal aortic diameter is 2.3 cm. Calcified atherosclerotic plaque is seen. Iliac arteries: Right common iliac artery measures 1.6 cm. Left common iliac artery measures 1.6 cm. IMPRESSION: No abdominal aortic aneurysm. 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 Follow-up abdominal ultrasound in 5 years is recommended. Dictated by: Salo Baumann M.D. on 03/08/2021 at 10:56 Approved by: Salo Baumann M.D. on 03/08/2021 at 11:01
== END ==
PROVIDERS: PCP Nurse Practitioner Family; Referring Provider Nurse Practitioner Family; Visit Provider Nurse Practitioner Family
DX: I10 Essential (primary) hypertension (principal); Z13.6 Encounter for screening for cardiovascular disorders; Z87.891 Personal history of nicotine dependence
CPT/HCPCS: 76706

== ENCOUNTER → 2021-04-30 10:13 | Outpatient (CLI) | payer MEDICARE, OTHER, SELFPAY ==
[2021-04-30] MEDS: COVID-19 VACC #3, MRNA(MOD) 50 MCG/0.25 ML VIAL IM (10:17)
== END ==
PROVIDERS: PCP Nurse Practitioner Family; Visit Provider Internal Medicine
DX: Z23 Encounter for immunization (principal)
CPT/HCPCS: 0013A; 91301

== ENCOUNTER 2021-05-18 12:41 | Emergency (ER) | payer MEDICARE, OTHER, SELFPAY ==
[2021-05-18] VITALS (26 sets, daily range): BP systolic 123–147; BP diastolic 58–73; PULSE 52–88; RESP 10–19; TEMP 36.4; O2SAT 93–98; BMI 33.0
--- NOTE | 2021-05-18 12:56 | DI.CT.S_ITS ---
PROCEDURE: CT STROKE INDICATIONS: change in loc,not TPA candidate TECHNIQUE: Noncontrast 4.5 mm thick angled axial sections acquired from the foramen magnum to the vertex, with coronal reformats. For radiation dose reduction, the following was used: automated exposure control, adjustment of mA and/or kV according to patient size. COMPARISON: None. FINDINGS: Image quality: Excellent. CSF spaces: Basal cisterns are patent. No extra-axial fluid collections. The ventricles are symmetric in size and shape. Brain: Approximately 4.6 by 5.2 centimeter complex mass noted in the right temporal lobe. There is vasogenic edema and local mass effect associated with the lesion causing partial effacement of the right lateral ventricle and approximately 4 millimeters of [id number] midline shift. No intracranial bleeds. There is cerebral volume loss for age, with resultant ventricular and sulcal prominence. There are periventricular and deep white matter chronic small vessel ischemic changes. There is intracranial internal carotid artery atherosclerosis. Skull and face: Calvarium and visualized facial bones appear intact, without suspicious lesions. Sinuses: Visualized sinuses and mastoids are clear. IMPRESSION: Right temporal lobe mass. Recommend MRI of the brain with and without contrast when clinically feasible. Findings recommendations discussed with Dr. Garica on May 18, 2021 at 1:15 p.m. This study fulfills neurological imaging criteria for inclusion or exclusion of acute stroke therapies based on available published neurological guidelines. Dictated by: Ana Wesley MD, PhD on 05/18/2021 at 13:13 Approved by: Ana Wesley MD, PhD on 05/18/2021 at 13:17
--- NOTE | 2021-05-18 13:50 | DI.MRI.S_ITS ---
PROCEDURE: MR HEAD/BRAIN WO/W CON INDICATIONS: Mass found on CT TECHNIQUE: Noncontrast axial T1 spin echo, axial T2 fast spin echo, sagittal and axial FLAIR, coronal T2 fast spin echo, axial gradient echo, axial diffusion and ADC through the brain. After the administration of contrast, axial and coronal T1 spin echo with fat saturation through the brain. COMPARISON: [facility], CT, CT STROKE, 05/18/2021, 13:04. FINDINGS: Image quality: Excellent. CSF spaces: Basal cisterns are patent. No extra-axial fluid collections. The right lateral ventricle is narrowed. Brain: Centered within the right temporal lobe, there is a largely cystic mass, which demonstrates rim enhancement and irregular mildly enhancing material on the lateral aspect of the mass. This mass measures 6.5 cm AP x 4.7 cm transversely, with a craniocaudal extent of 4.6 cm. 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 There is associated surrounding edema with mass effect seen, with narrowing of the right lateral ventricle. Midline shift is seen, with 3 mm midline shift. There is cerebral volume loss for age. There is periventricular white matter chronic small vessel ischemic change. The brainstem appears normal. Diffusion-weighted images demonstrate no acute ischemic insults. No chronic ischemic insults. Normal intravascular flow voids are present. Skull and face: Calvarial marrow is normal in signal. Orbits appear normal. Note is made of bilateral lens replacements. Sinuses: Sinuses and mastoids appear clear. IMPRESSION: 6.5 cm largely cystic mass with solid enhancing elements along its lateral rim, with associated mass effect, including 3 mm of midline shift. A primary mass is suspected. Abscess is the right a clear possible, yet considered to be much less likely. Urgent neurosurgical consultation is recommended. Note: Findings and recommendations discussed by telephone with Dr. Garcia at 2:25 p.m. [place] time on May 18, 2021. Dictated by: Mariusz Tafoya M.D. on 05/18/2021 at 14:20 Approved by: Mariusz Tafoya M.D. on 05/18/2021 at 14:27
--- NOTE | 2021-05-18 13:58 | ED_ITS ---
HPI - Neuro Symptoms/Deficit <Rush Denise PA-C - Last Filed: 05/18/21 17:56> General Chief Complaint: Neuro Symptoms/Deficit Stated Complaint: Poss TIA Time Seen by Provider: 05/18/21 13:44 Source: patient Mode of arrival: Ambulatory Limitations: no limitations History of Present Illness HPI Narrative: Patient is a 76-year-old male presenting to the emergency department today for evaluation neurological symptoms. Patient's states that since Monday05/14/2021 patient has exhibited ?repetitive behavior? and has had episodes of forgetfulness. Additionally, she states that the patient has had difficulty driving and has during 1 trip driven on the wrong side of the road. Patient's notes that over the past few days the patient has had difficulty getting a good night's sleep due to frequent nighttime urination associated with BPH. Additionally, patient states that his urologist recently put him on a medication that made him dizzy, but he states that he has not taken that medication for a couple of weeks now. Patient is also experienced some soreness on the right side of his head for approximately 1 week, noting the pain seemed to begin after a visit to his dentist. No fever, chills, chest pain, shortness of breath, syncope, aphasia, gait abnormality, hematuria, or dysuria reported. No other concerns were voiced at this time. On Anticoagulants: Yes (asa) Related Data Home Medications Medication Instructions Recorded Confirmed cyclosporine 0.05 % eye drops in a 1 drp OPHTH BID #0 04/19/17 05/19/21 dropperette (Restasis) [place]-3 Fish oil 1,400 mg PO 08/09/18 02/10/21 aspirin 81 mg tablet,delayed 81 mg PO DAILY 08/09/18 05/19/21 release (Adult Aspirin Regimen) cholecalciferol (vitamin D3) 25 1,000 unit PO DAILY 08/09/18 05/19/21 mcg (1,000 unit) capsule multivitamin with minerals (Men's 1 tab PO DAILY 08/09/18 05/19/21 One Daily) terazosin 10 mg capsule 10 mg PO DAILY 08/09/18 02/10/21 Previous Rx's Medication Instructions Recorded ketoconazole 2 % topical cream 1 applictn TOP BID #30 gram 03/31/20 hydrochlorothiazide 25 mg tablet 25 mg PO QDAY #90 tab 10/22/20 atorvastatin 10 mg tablet (Lipitor) 10 mg PO HS #90 tab 10/29/20 omeprazole 20 mg capsule,delayed 20 mg PO QDAY #90 tab 01/13/21 release nifedipine 60 mg tablet,extended 60 mg PO QDAY #90 tab 02/24/21 release allopurinol 300 mg tablet 300 mg PO QDAY #90 tab 04/20/21 Allergies Allergy/AdvReac Type Severity Reaction Status Date / Time No Known Drug Allergies Allergy Verified 05/18/21 12:48 Review of Systems <Rush Denise PA-C - Last Filed: 05/18/21 17:56> Constitutional Constitutional: Denies chills, Denies fatigue, Denies fever(s), Denies frequent falls, Reports headache(s) (Right-sided head pain), Denies lethargy and Denies weakness Eyes Eyes: Denies change in vision, Denies eye discharge, Denies irritation and Denies loss of vision ENT Ears, Nose, Mouth, and Throat: Denies change in voice, Denies dizziness, Reports headache(s) (Right-sided head pain), Denies neck pain, Denies sore throat and Denies throat swelling Cardiovascular Cardiovascular: Denies chest pain, Denies irregular heart rhythm, Denies ligh theadedness, Denies palpitations, Denies dyspnea, Denies dyspnea on exertion and Denies orthopnea Respiratory Respiratory: Denies cough, Denies dyspnea, Denies dyspnea on exertion and Denies wheezing Gastrointestinal Gastrointestinal: Denies abdominal pain, Denies change in bowel habits, Denies diarrhea, Denies nausea and Denies vomiting Genitourinary Genitourinary: Denies hematuria, Denies flank pain, Denies urinary incontinence and Denies urinary urgency Musculoskeletal Musculoskeletal: Denies neck pain, Denies numbness and Denies tingling Neurologic Neurologic: Reports behavioral changes (Repetitive behavior), Denies confusion, Denies dizziness, Denies frequent falls, Reports headache(s) (Right-sided head pain), Denies loss of vision, Denies numbness, Denies tingling and Denies weakness Psychiatric Psychiatric: Reports behavioral changes (Repetitive behavior) and Denies confusion Endocrine Endocrine: Denies fatigue and Denies palpitations Hematologic/Lymphatic On Anticoagulants: Yes (asa) Allergic/Immunologic Allergic/Immunologic: Denies throat swelling and Denies wheezing Patient History <Rush Denise PA-C - Last Filed: 05/18/21 17:56> Medical History Actinic keratosis Aortic ectasia, 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 Father No problems noted. Mother No problems noted. Brother No problems noted. Social History marital status: household members: spouse education level: college Smoking Status: Never smoker second hand exposure: No alcohol intake: current substance use type: does not use Smoking Status: Never smoker alcohol intake frequency: 0-2 drinks per day Substance Use Type: does not use Exam <Rush Denise PA-C - Last Filed: 05/18/21 17:56> Narrative Exam Narrative: GENERAL: 76 year old patient appears stated age. Well-developed patient, in no acute distress. HEAD: Atraumatic. Normocephalic. EYES: Pupils equal round and reactive. Extraocular motions intact. No scleral icterus. No injection or drainage. ENT: Nose without bleeding, purulent drainage. Throat without erythema, tonsillar hypertrophy or exudate. Airway patent. NECK: Trachea midline. Non tender CARDIOVASCULAR: Regular rate and rhythm without murmurs, gallops, or rubs. RESPIRATORY: Clear to auscultation. Breath sounds equal bilaterally. No wheezes, rales, or rhonchi. GASTROINTESTINAL: Abdomen soft, non-tender, nondistended. EXTREMITIES: No edema or joint tenderness. BACK: Nontender without deformity or crepitance. No flank tenderness. NEURO: AOx3. No abnormal speech appreciated. Motor function throughout the bilateral upper and lower extremities intact. Good sensation appreciated throughout bilateral upper and lower extremities to light touch. SKIN: No rash or erythema of visible areas Initial Vital Signs Initial Vital Signs: Vital Signs Temperature 97.5 F L 05/18/21 12:46 Pulse Rate 88 05/18/21 12:46 Respiratory Rate 15 05/18/21 12:46 Blood Pressure 147/73 H 05/18/21 12:46 Pulse Oximetry 94 05/18/21 12:46 <Nissa Bobo DO - Last Filed: 05/19/21 18:20> Initial Vital Signs Initial Vital Signs: Vital Signs Temperature 97.5 F L 05/18/21 12:46 Pulse Rate 88 05/18/21 12:46 Respiratory Rate 15 05/18/21 12:46 Blood Pressure 147/73 H 05/18/21 12:46 Pulse Oximetry 94 05/18/21 12:46 Course <Rush Denise PA-C - Last Filed: 05/18/21 17:56> Course Course Narrative: PT/INR, PTT, urine drug screen, urinalysis, CBC, CMP, CT of the head, MRI of the head, EKG obtained. Orders Ordered: ED Orders 05/19/21 17:08 COVID19 -Nasal swab/Pre-Proc Stat Allopurinol (Allopurinol 300 Mg Tablet) 300 mg PO DAILY [facility] Atorvastatin Calcium (Atorvastatin 20 Mg Tablet) 10 mg PO BEDTIME [facility] Dexamethasone (Dexamethasone 10 Mg/Ml Vial) 6 mg IV Q6HR [facility] Last Admin: 05/19/21 17:43 Dose: 6 mg Documented by: Admin: 05/19/21 11:46 Dose: 6 mg Documented by: Admin: 05/19/21 05:57 Dose: 6 mg Documented by: Admin: 05/18/21 23:35 Dose: 6 mg Documented by: Admin: 05/18/21 18:11 Dose: 6 mg Documented by: OLIVIA Famotidine (Famotidine 20 Mg/2 Ml Vial) 20 mg IV NOW [facility] Last Admin: 05/19/21 09:06 Dose: 20 mg Documented by: TEE Famotidine (Famotidine 20 Mg/2 Ml Vial) 20 mg IV DAILY [facility] Hydrochlorothiazide (Hydrochlorothiazide 25 Mg Tablet) 25 mg PO DAILY [facility] Levetiracetam 1,000 mg/ Sodium (Chloride) 110 mls @ 440 mls/hr IV Q12H [facility] Last Infusion: 05/19/21 07:59 Dose: 0 mls/hr Documented by: Admin: 05/19/21 07:22 Dose: 440 mls/hr Documented by: TEE Nifedipine (Nifedipine 30 Mg Tab Er) 60 mg PO DAILY [facility] Tamsulosin HCl (Tamsulosin 0.4 Mg Capsule) 0.4 mg PO BEDTIME [facility] Discontinued Medications Acetaminophen (Acetaminophen 325 Mg Tablet) 975 mg PO NOW ONE Stop: 05/19/21 09:29 Last Admin: 05/19/21 09:52 Dose: 975 mg Documented by: TEE Famotidine (Famotidine 20 Mg/2 Ml Vial) 20 mg IV NOW ONE Stop: 05/18/21 18:16 Last Admin: 05/18/21 18:22 Dose: 20 mg Documented by: OLIVIA Levetiracetam 1,000 mg/ Sodium (Chloride) 110 mls @ 440 mls/hr IV NOW ONE Stop: 05/18/21 18:29 Last Infusion: 05/18/21 19:10 Dose: 0 mls/hr Documented by: Admin: 05/18/21 18:15 Dose: 440 mls/hr Documented by: OLIVIA Nifedipine (Nifedipine 30 Mg Tab Er) 60 mg PO NOW ONE Stop: 05/19/21 08:31 Last Admin: 05/19/21 09:06 Dose: 60 mg Documented by: TEE Consultations Consultation #1: Consult with Dr. Hugo Chaparro (neuro surgery - [facility]). Dr. Chaparro states he should be able to operate on the patient but is unsure of the bed availability at [facility]. He states that he will reach back out to me with more information. Time: 17:00 Consultation #2: Dr. Chaparro believes that a bed could become available within the next 12-24 hours. He states patient can be boarded in the emergency department, or we could seek further care from [facility], or the [facility]. In the meantime he recommends that we begin IV dexamethasone at 6 mg q.6, and H2 renny, and Keppra. Time: 17:21 Vital Signs Vital signs: Vital Signs - 8 hr 05/19/21 10:30 05/19/21 11:00 05/19/21 11:30 Pulse Rate 64 67 63 Respiratory Rate 14 16 12 Blood Pressure 145/71 H Pulse Oximetry 95 95 95 05/19/21 11:54 05/19/21 13:04 05/19/21 13:05 Pulse Rate 65 70 66 Respiratory Rate 14 Blood Pressure 165/73 H 135/63 Pulse Oximetry 94 96 95 05/19/21 13:30 05/19/21 14:30 05/19/21 14:31 Pulse Rate 82 77 Respiratory Rate 15 Blood Pressure 139/64 Pulse Oximetry 95 95 05/19/21 15:00 05/19/21 15:30 05/19/21 16:00 Pulse Rate 87 94 H 96 H Respiratory Rate 15 20 20 Blood Pressure 157/71 H 157/71 H Pulse Oximetry 95 94 94 05/19/21 16:30 Pulse Rate 92 H Respiratory Rate 14 Blood Pressure 133/64 Pulse Oximetry 96 <Nissa Bobo, - Last Filed: 05/19/21 18:20> Orders Ordered: ED Orders 05/19/21 17:08 COVID19 -Nasal swab/Pre-Proc Stat Allopurinol (Allopurinol 300 Mg Tablet) 300 mg PO DAILY [facility] Atorvastatin Calcium (Atorvastatin 20 Mg Tablet) 10 mg PO BEDTIME [facility] Dexamethasone (Dexamethasone 10 Mg/Ml Vial) 6 mg IV Q6HR [facility] Last Admin: 05/19/21 17:43 Dose: 6 mg Documented by: Admin: 05/19/21 11:46 Dose: 6 mg Documented by: Admin: 05/19/21 05:57 Dose: 6 mg Documented by: Admin: 05/18/21 23:35 Dose: 6 mg Documented by: Admin: 05/18/21 18:11 Dose: 6 mg Documented by: OLIVIA Famotidine (Famotidine 20 Mg/2 Ml Vial) 20 mg IV NOW [facility] Last Admin: 05/19/21 09:06 Dose: 20 mg Documented by: TEE Famotidine (Famotidine 20 Mg/2 Ml Vial) 20 mg IV DAILY [facility] Hydrochlorothiazide (Hydrochlorothiazide 25 Mg Tablet) 25 mg PO DAILY [facility] Levetiracetam 1,000 mg/ Sodium (Chloride) 110 mls @ 440 mls/hr IV Q12H [facility] Last Infusion: 05/19/21 07:59 Dose: 0 mls/hr Documented by: Admin: 05/19/21 07:22 Dose: 440 mls/hr Documented by: TEE Nifedipine (Nifedipine 30 Mg Tab Er) 60 mg PO DAILY [facility] Tamsulosin HCl (Tamsulosin 0.4 Mg Capsule) 0.4 mg PO BEDTIME [facility] Discontinued Medications Acetaminophen (Acetaminophen 325 Mg Tablet) 975 mg PO NOW ONE Stop: 05/19/21 09:29 Last Admin: 05/19/21 09:52 Dose: 975 mg Documented by: TEE Famotidine (Famotidine 20 Mg/2 Ml Vial) 20 mg IV NOW ONE Stop: 05/18/21 18:16 Last Admin: 05/18/21 18:22 Dose: 20 mg Documented by: OLIVIA Levetiracetam 1,000 mg/ Sodium (Chloride) 110 mls @ 440 mls/hr IV NOW ONE Stop: 05/18/21 18:29 Last Infusion: 05/18/21 19:10 Dose: 0 mls/hr Documented by: Admin: 05/18/21 18:15 Dose: 440 mls/hr Documented by: OLIVIA Nifedipine (Nifedipine 30 Mg Tab Er) 60 mg PO NOW ONE Stop: 05/19/21 08:31 Last Admin: 05/19/21 09:06 Dose: 60 mg Documented by: TEE Reevaluation(s) Reevaluation #1: Patient was seen and evaluated independently by myself. He is alert, appropriate here in the department. He has not had any other witnessed seizure activity reported. He has received dexamethasone 6 mg IV q.6, he received a 1st dose of Keppra and this was ordered for 1 g q.12 hours as well as famotidine 20 mg daily. Patient at this time is awaiting possible bed at [place], [place]. Other facilities were called but do not have any availability. Time: 08:31 Reevaluation #2: Patient's mentation still appears to be the same although he does not recall roxana yvan to be earlier today. He has not had any new neurologic events. I did review findings and that we are still waiting for possible bed placement today in [place]. Time: 14:30 Reevaluation #3: Discussed with patient he was accepted by Dr. Nj in [place] and plan for transfer. Dr. Franks out tentatively plans for OR tomorrow afternoon. This was relayed to the patient. Time: 18:02 Consultations Consultation #3: Dr. Nj hospitalist accepts for transfer Dr. Chaparro neurosurgery was also on the call. Patient has not had any new neurologic events here in the department. No recurrent seizures. He has continued to get Keppra 1 g q.12, H2 renny in dexamethasone 6 mg q.6 hours. Has had some confusion but otherwise seems to be alert and appropriate. His has been at bedside and has been updated on f indings throughout. He was hypertensive but was given his a.m. nifedipine dose which improved his hypertension. Time: 18:02 Vital Signs Vital signs: Vital Signs - 8 hr 05/19/21 10:30 05/19/21 11:00 05/19/21 11:30 Pulse Rate 64 67 63 Respiratory Rate 14 16 12 Blood Pressure 145/71 H Pulse Oximetry 95 95 95 05/19/21 11:54 05/19/21 13:04 05/19/21 13:05 Pulse Rate 65 70 66 Respiratory Rate 14 Blood Pressure 165/73 H 135/63 Pulse Oximetry 94 96 95 05/19/21 13:30 05/19/21 14:30 05/19/21 14:31 Pulse Rate 82 77 Respiratory Rate 15 Blood Pressure 139/64 Pulse Oximetry 95 95 05/19/21 15:00 05/19/21 15:30 05/19/21 16:00 Pulse Rate 87 94 H 96 H Respiratory Rate 15 20 20 Blood Pressure 157/71 H 157/71 H Pulse Oximetry 95 94 94 05/19/21 16:30 Pulse Rate 92 H Respiratory Rate 14 Blood Pressure 133/64 Pulse Oximetry 96 MDM - Neuro Symptoms/Deficit <Rush Denise PA-C - Last Filed: 05/18/21 17:56> Lab Data Result diagrams: 05/18/21 14:10 05/18/21 14:10 Labs: Lab Results 05/18/21 05/18/21 05/18/21 Range/Units 14:10 14:10 14:10 WBC 6.7 (4.5-11.0) X10^3/uL RBC 4.59 (4.5-5.9) X10^6/uL Hgb 15.4 (13.5-17.5) g/dL Hct 44.9 (41-53) % MCV 98.0 (80-100) fL MCH 33.5 (26-34) PG MCHC 34.2 (30-36) % RDW 13.9 (11.6-14.8) % Plt Count 177 (150-400) X10^3/uL Neut % (Auto) 70.1 (50-75) % Lymph % (Auto) 21.4 L (25-40) % [place] % (Auto) 7.3 (3-14) % Eos % (Auto) 0.5 L (2-4) % Baso % (Auto) 0.7 (0-2) % Neut # (Auto) 4700 (5759-3776) /uL Lymph # (Auto) 1400 (0460-6592) /uL [place] # (Auto) 500 (0-900) /uL Eos # (Auto) 0 (0-450) /uL Baso # (Auto) 0 (0-100) /uL PT 11.7 (10.1-12.7) SECONDS INR 1.0 (0.9-1.3) APTT 29 (26.4-36.2) SECONDS Sodium 138 (137-145) mmol/L Potassium 3.6 (3.4-5.1) mmol/L Chloride 103 (98-107) mmol/L Carbon Dioxide 26 (22-32) mmol/L BUN 29 H (9-20) mg/dL Creatinine 0.91 (0.66-1.25) mg/dL Estimated GFR > 60.0 (>60) mL/min BUN/Creatinine Ratio 31.9 H (6-22) Glucose 130 H (80-110) mg/dL Calcium 9.2 (8.4-10.2) mg/dL Total Bilirubin 0.8 (0.2-1.3) mg/dL AST 26 (17-59) IU/L ALT 24 (<50) IU/L Alkaline Phosphatase 56 (38-126) U/L Total Protein 7.1 (6.3-8.2) g/dL Albumin 4.3 (3.5-5.0) g/dL Globulin 2.8 (1.7-4.1) g/dL Albumin/Globulin Ratio 1.5 (1.0-2.8) Urine Color Urine Appearance Urine pH (4.5-8.0) Ur Specific [place] (1.000-1.035) Urine Protein (Negative) Urine Glucose (UA) (Negative) g/dL Urine Ketones (NEGATIVE) Urine Occult Blood (Negative) Urine Nitrate (Negative) Urine Bilirubin (NEGATIVE) Urine Urobilinogen (0.2) E.U./dL Ur Leukocyte Esterase (NEGATIVE) Urine RBC (0-5/HPF) Urine WBC (0-5/HPF) Ur Squamous Epith Cells (0-5/HPF) Urine Bacteria (None) Ur Culture Indicated? U Opiates 300ng/mL cut (Negative) Ur Oxycodone Screen (Negative) Urine Methadone Screen (Negative) Ur Barbiturates Screen (Negative) U Tricyclic Antidepress (Negative) Ur Phencyclidine Scrn (Negative) Ur Amphetamines Screen (Negative) U Methamphetamines Scrn (Negative) Ur MDMA Scrn (Ecstasy) (Negative) U Benzodiazepines Scrn (Negative) Urine Cocaine Screen (Negative) U Marijuana (THC) Screen (Negative) SARS-CoV-2 (PCR) (Negative) 05/18/21 05/18/21 05/19/21 Range/Units 15:40 15:40 17:08 WBC (4.5-11.0) X10^3/uL RBC (4.5-5.9) X10^6/uL Hgb (13.5-17.5) g/dL Hct (41-53) % MCV (80-100) fL MCH (26-34) PG MCHC (30-36) % RDW (11.6-14.8) % Plt Count (150-400) X10^3/uL Neut % (Auto) (50-75) % Lymph % (Auto) (25-40) % [place] % (Auto) (3-14) % Eos % (Auto) (2-4) % Baso % (Auto) (0-2) % Neut # (Auto) (7839-8861) /uL Lymph # (Auto) (6258-4050) /uL [place] # (Auto) (0-900) /uL Eos # (Auto) (0-450) /uL Baso # (Auto) (0-100) /uL PT (10.1-12.7) SECONDS INR (0.9-1.3) APTT (26.4-36.2) SECONDS Sodium (137-145) mmol/L Potassium (3.4-5.1) mmol/L Chloride (98-107) mmol/L Carbon Dioxide (22-32) mmol/L BUN (9-20) mg/dL Creatinine (0.66-1.25) mg/dL Estimated GFR (>60) mL/min BUN/Creatinine Ratio (6-22) Glucose (80-110) mg/dL Calcium (8.4-10.2) mg/dL Total Bilirubin (0.2-1.3) mg/dL AST (17-59) IU/L ALT (<50) IU/L Alkaline Phosphatase (38-126) U/L Total Protein (6.3-8.2) g/dL Albumin (3.5-5.0) g/dL Globulin (1.7-4.1) g/dL Albumin/Globulin Ratio (1.0-2.8) Urine Color Yellow Urine Appearance Clear Urine pH 7.5 (4.5-8.0) Ur Specific [place] 1.015 (1.000-1.035) Urine Protein Negative (Negative) Urine Glucose (UA) Negative (Negative) g/dL Urine Ketones Negative (NEGATIVE) Urine Occult Blood Negative (Negative) Urine Nitrate Negative (Negative) Urine Bilirubin Negative (NEGATIVE) Urine Urobilinogen 0.2 (0.2) E.U./dL Ur Leukocyte Esterase Negative (NEGATIVE) Urine RBC None seen (0-5/HPF) Urine WBC 0-1/hpf (0-5/HPF) Ur Squamous Epith Cells 0-1 /hpf (0-5/HPF) Urine Bacteria None seen (None) Ur Culture Indicated? Cult not indicated U Opiates 300ng/mL cut Negative (Negative) Ur Oxycodone Screen Negative (Negative) Urine Methadone Screen Negative (Negative) Ur Barbiturates Screen Negative (Negative) U Tricyclic Antidepress Negative (Negative) Ur Phencyclidine Scrn Negative (Negative) Ur Amphetamines Screen Negative (Negative) U Methamphetamines Scrn Negative (Negative) Ur MDMA Scrn (Ecstasy) Negative (Negative) U Benzodiazepines Scrn Negative (Negative) Urine Cocaine Screen Negative (Negative) U Marijuana (THC) Screen Negative (Negative) SARS-CoV-2 (PCR) Negative (Negative) Point of Care Testing Glucose POC 131 Urine Dip Bedside Urine Glucose Negative Bedside Urine Bilirubin - Negative Bedside Urine Ketone - Negative Urine Specific [place] 1.020 Bedside Urine Occult Blood - Negative Bedside Urine pH 7.0 Bedside Urine Protein - Negative Bedside Urine Urobilinogen - Negative Bedside Urine Nitrite - Negative Bedside Urine Leukocytes - Negative Esterase ECG Data Interpretation: Ventricular rate of 79 beats per minute, DC interval of 182 ms, no ST wave changes appreciated. MDM Narrative Medical decision making narrative: To consider transient ischemic attack versus cerebrovascular accident versus intracranial mass versus epidural hematoma versus subdural hematoma. <Nissa Bobo, - Last Filed: 05/19/21 18:20> Lab Data Labs: Lab Results 05/18/21 05/18/21 05/18/21 Range/Units 14:10 14:10 14:10 WBC 6.7 (4.5-11.0) X10^3/uL RBC 4.59 (4.5-5.9) X10^6/uL Hgb 15.4 (13.5-17.5) g/dL Hct 44.9 (41-53) % MCV 98.0 (80-100) fL MCH 33.5 (26-34) PG MCHC 34.2 (30-36) % RDW 13.9 (11.6-14.8) % Plt Count 177 (150-400) X10^3/uL Neut % (Auto) 70.1 (50-75) % Lymph % (Auto) 21.4 L (25-40) % [place] % (Auto) 7.3 (3-14) % Eos % (Auto) 0.5 L (2-4) % Baso % (Auto) 0.7 (0-2) % Neut # (Auto) 4700 (1171-2338) /uL Lymph # (Auto) 1400 (3159-6831) /uL [place] # (Auto) 500 (0-900) /uL Eos # (Auto) 0 (0-450) /uL Baso # (Auto) 0 (0-100) /uL PT 11.7 (10.1-12.7) SECONDS INR 1.0 (0.9-1.3) APTT 29 (26.4-36.2) SECONDS Sodium 138 (137-145) mmol/L Potassium 3.6 (3.4-5.1) mmol/L Chloride 103 (98-107) mmol/L Carbon Dioxide 26 (22-32) mmol/L BUN 29 H (9-20) mg/dL Creatinine 0.91 (0.66-1.25) mg/dL Estimated GFR > 60.0 (>60) mL/min BUN/Creatinine Ratio 31.9 H (6-22) Glucose 130 H (80-110) mg/dL Calcium 9.2 (8.4-10.2) mg/dL Total Bilirubin 0.8 (0.2-1.3) mg/dL AST 26 (17-59) IU/L ALT 24 (<50) IU/L Alkaline Phosphatase 56 (38-126) U/L Total Protein 7.1 (6.3-8.2) g/dL Albumin 4.3 (3.5-5.0) g/dL Globulin 2.8 (1.7-4.1) g/dL Albumin/Globulin Ratio 1.5 (1.0-2.8) Urine Color Urine Appearance Urine pH (4.5-8.0) Ur Specific [place] (1.000-1.035) Urine Protein (Negative) Urine Glucose (UA) (Negative) g/dL Urine Ketones (NEGATIVE) Urine Occult Blood (Negative) Urine Nitrate (Negative) Urine Bilirubin (NEGATIVE) Urine Urobilinogen (0.2) E.U./dL Ur Leukocyte Esterase (NEGATIVE) Urine RBC (0-5/HPF) Urine WBC (0-5/HPF) Ur Squamous Epith Cells (0-5/HPF) Urine Bacteria (None) Ur Culture Indicated? U Opiates 300ng/mL cut (Negative) Ur Oxycodone Screen (Negative) Urine Methadone Screen (Negative) Ur Barbiturates Screen (Negative) U Tricyclic Antidepress (Negative) Ur Phencyclidine Scrn (Negative) Ur Amphetamines Screen (Negative) U Methamphetamines Scrn (Negative) Ur MDMA Scrn (Ecstasy) (Negative) U Benzodiazepines Scrn (Negative) Urine Cocaine Screen (Negative) U Marijuana (THC) Screen (Negative) SARS-CoV-2 (PCR) (Negative) 05/18/21 05/18/21 05/19/21 Range/Units 15:40 15:40 17:08 WBC (4.5-11.0) X10^3/uL RBC (4.5-5.9) X10^6/uL Hgb (13.5-17.5) g/dL Hct (41-53) % MCV (80-100) fL MCH (26-34) PG MCHC (30-36) % RDW (11.6-14.8) % Plt Count (150-400) X10^3/uL Neut % (Auto) (50-75) % Lymph % (Auto) (25-40) % [place] % (Auto) (3-14) % Eos % (Auto) (2-4) % Baso % (Auto) (0-2) % Neut # (Auto) (4632-5149) /uL Lymph # (Auto) (0253-9784) /uL [place] # (Auto) (0-900) /uL Eos # (Auto) (0-450) /uL Baso # (Auto) (0-100) /uL PT (10.1-12.7) SECONDS INR (0.9-1.3) APTT (26.4-36.2) SECONDS Sodium (137-145) mmol/L Potassium (3.4-5.1) mmol/L Chloride (98-107) mmol/L Carbon Dioxide (22-32) mmol/L BUN (9-20) mg/dL Creatinine (0.66-1.25) mg/dL Estimated GFR (>60) mL/min BUN/Creatinine Ratio (6-22) Glucose (80-110) mg/dL Calcium (8.4-10.2) mg/dL Total Bilirubin (0.2-1.3) mg/dL AST (17-59) IU/L ALT (<50) IU/L Alkaline Phosphatase (38-126) U/L Total Protein (6.3-8.2) g/dL Albumin (3.5-5.0) g/dL Globulin (1.7-4.1) g/dL Albumin/Globulin Ratio (1.0-2.8) Urine Color Yellow Urine Appearance Clear Urine pH 7.5 (4.5-8.0) Ur Specific [place] 1.015 (1.000-1.035) Urine Protein Negative (Negative) Urine Glucose (UA) Negative (Negative) g/dL Urine Ketones Negative (NEGATIVE) Urine Occult Blood Negative (Negative) Urine Nitrate Negative (Negative) Urine Bilirubin Negative (NEGATIVE) Urine Urobilinogen 0.2 (0.2) E.U./dL Ur Leukocyte Esterase Negative (NEGATIVE) Urine RBC None seen (0-5/HPF) Urine WBC 0-1/hpf (0-5/HPF) Ur Squamous Epith Cells 0-1 /hpf (0-5/HPF) Urine Bacteria None seen (None) Ur Culture Indicated? Cult not indicated U Opiates 300ng/mL cut Negative (Negative) Ur Oxycodone Screen Negative (Negative) Urine Methadone Screen Negative (Negative) Ur Barbiturates Screen Negative (Negative) U Tricyclic Antidepress Negative (Negative) Ur Phencyclidine Scrn Negative (Negative) Ur Amphetamines Screen Negative (Negative) U Methamphetamines Scrn Negative (Negative) Ur MDMA Scrn (Ecstasy) Negative (Negative) U Benzodiazepines Scrn Negative (Negative) Urine Cocaine Screen Negative (Negative) U Marijuana (THC) Screen Negative (Negative) SARS-CoV-2 (PCR) Negative (Negative) Point of Care Testing Glucose POC 131 Urine Dip Bedside Urine Glucose Negative Bedside Urine Bilirubin - Negative Bedside Urine Ketone - Negative Urine Specific [place] 1.020 Bedside Urine Occult Blood - Negative Bedside Urine pH 7.0 Bedside Urine Protein - Negative Bedside Urine Urobilinogen - Negative Bedside Urine Nitrite - Negative Bedside Urine Leukocytes - Negative Esterase Imaging Data MRI Brain: Radiologist's Impression: Rigoberto Peng??76??M??1945 ? Allergy/Adv: No Known Drug Allergies Close Brain MRI (Signed) Fermin Tafoyasse - 05/18/[address] (Signed) Ana Wesley - 05/18/21 Abdominal Arterial Study US (Signed) Salo Baumann - 03/08/21 Foot X-Ray (Signed) Heavenly Huitron - 03/31/20 Carotid Doppler Study (Signed) Danny Mcgarry - 01/07/20 Cervical Spine X-Ray (Signed) Wilber Tenorio - 01/01/20 Telemetry Strips 08/29/18 Launch?[address] [address] Magnetic Resonance Report Signed Patient: Rigoberto Peng MR#: [id number] : 1945 Acct:[id number] Age/Sex: 76 / M Date of Service: 05/18/21 Loc: ED Accession Number: [id number] ?? Procedure: MR head/brain wo/w con Ordering Provider: Rush Denise P.A-C PROCEDURE:? MR HEAD/BRAIN WO/W CON ? INDICATIONS:? Mass found on CT ? TECHNIQUE:? Noncontrast axial T1 spin echo, axial T2 fast spin echo, sagittal and axial FLAIR, coronal T2 fast spin echo, axial gradient echo, axial diffusion and ADC through the brain.? After the administration of contrast, axial and coronal T1 spin echo with fat saturation through the brain.? ? COMPARISON:? [facility], CT, CT STROKE, 05/18/2021, 13:04. ? FINDINGS:? Image quality:? Excellent.? ? CSF spaces:? Basal cisterns are patent.? No extra-axial fluid collections.? The right lateral ventricle is narrowed. ? Brain:? Centered within the right temporal lobe, there is a largely cystic mass, which demonstrates rim enhancement and irregular mildly enhancing material on the lateral aspect of the mass.? This mass measures 6.5 cm AP x 4.7 cm transversely, with a craniocaudal extent of 4.6 cm.? 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 ? There is associated surrounding edema with mass effect seen, with narrowing of the right lateral ventricle.? Midline shift is seen, with 3 mm midline shift. ? There is cerebral volume loss for age.? There is periventricular white matter chronic small vessel ischemic change.? The brainstem appears normal.? Diffusion-weighted images demonstrate no acute ischemic insults.? No chronic ischemic insults.? Normal intravascular flow voids are present.? ? Skull and face:? Calvarial marrow is normal in signal.? Orbits appear normal.? Note is made of bilateral lens replacements. ? Sinuses:? Sinuses and mastoids appear clear.? IMPRESSION:? 6.5 cm largely cystic mass with solid enhancing elements along its lateral rim, with associated mass effect, including 3 mm of midline shift. ? A primary mass is suspected.? Abscess is the right a clear possible, yet considered to be much less likely. ? Urgent neurosurgical consultation is recommended. ? ? Note: Findings and recommendations discussed by telephone with Dr. Garcia at 2:25 p.m. [place] time on May 18, 2021.? ? ? Dictated by: Mariusz Tafoya M.D. on 05/18/2021 at 14:20 ? ? Approved by: Mariusz Tafoya M.D. on 05/18/2021 at 14:27?? CT scan - head: Radiologist's Impression: [address] [address] [address] Scan Report Signed Patient: Rigoberto Peng MR#: [id number] : 1945 Acct:[id number] Age/Sex: 76 / M Date of Service: 05/18/21 Loc: ED Accession Number: [id number] ?? Procedure: CT Stroke Ordering Provider: Bravo Garcia MD PROCEDURE:? CT STROKE ? INDICATIONS:? change in loc,not TPA candidate ? TECHNIQUE:? Noncontrast 4.5 mm thick angled axial sections acquired from the foramen magnum to the vertex, with coronal reformats.? For radiation dose reduction, the following was used:? automated exposure control, adjustment of mA and/or kV according to patient size.? ? COMPARISON:? None. ? FINDINGS:? Image quality:? Excellent.? ? CSF spaces:? Basal cisterns are patent.? No extra-axial fluid collections.? The ventricles are symmetric in size and shape.? ? Brain:? Approximately 4.6 by 5.2 centimeter complex mass noted in the right temporal lobe.? There is vasogenic edema and local mass effect associated with the lesion causing partial effacement of the right lateral ventricle and approximately 4 millimeters of [id number] midline shift.? No intracranial bleeds. There is cerebral volume loss for age, with resultant ventricular and sulcal prominence.? There are periventricular and deep white matter chronic small vessel ischemic changes.? There is intracranial internal carotid artery atherosclerosis.? ? Skull and face:? Calvarium and visualized facial bones appear intact, without suspicious lesions.? ? Sinuses:? Visualized sinuses and mastoids are clear.? ? IMPRESSION:? Right temporal lobe mass.? Recommend MRI of the brain with and without contrast when clinically feasible. ? ? Findings recommendations discussed with Dr. Garcia on May 18, 2021 at 1:15 p.m. ? This study fulfills neurological imaging criteria for inclusion or exclusion of acute stroke therapies based on available published neurological guidelines.? ? ? Dictated by: Ana Wesley MD, PhD on 05/18/2021 at 13:13 ? ? Approved by: Ana Wesley MD, PhD on 05/18/2021 at 13:17? MDM Narrative Medical decision making narrative: To consider transient ischemic attack versus cerebrovascular accident versus intracranial mass versus epidural hematoma versus subdural hematoma. Patient has a large cerebral mass causing midline shift as well as some cerebral edema. Patient received Keppra in the department regularly scheduled as well as dexamethasone and has been stable. He has been accepted at [facility] and is transferring there to meet with the neurosurgeon for tentative surgery plan tomorrow. Discharge Plan Departure Patient Disposition: [facility] Clinical Impression: Brain mass Prescriptions: No Action terazosin 10 mg capsule 10 mg PO DAILY 0RF multivitamin with minerals [Men's One Daily] tablet 1 tab PO DAILY 0RF aspirin [Adult Aspirin Regimen] 81 mg tablet,delayed release (DR/EC) 81 mg PO DAILY 0RF cholecalciferol (vitamin D3) 1,000 unit capsule 1,000 unit PO DAILY 0RF [place]-3 Fish oil capsule 1,400 mg PO 0RF Restasis 1 EACH dropperette 1 drp OPHTH BID Qty: 0 0RF hydrochlorothiazide 25 mg tablet 25 mg PO QDAY Qty: 90 2RF atorvastatin [Lipitor] 10 mg tablet 10 mg PO HS Qty: 90 1RF omeprazole 20 mg capsule,delayed release(DR/EC) 20 mg PO QDAY Qty: 90 1RF nifedipine 60 mg tablet extended release 60 mg PO QDAY Qty: 90 1RF allopurinol 300 mg tablet 300 mg PO QDAY Qty: 90 1RF ketoconazole 2 % cream 1 applictn TOP BID Qty: 30 0RF Referrals: Delmis Mayorga ARNP [Primary Care Provider] -
[2021-05-18 14:17] LABS: Add Manual Diff / Slide Review NO; Basophils Absolute Auto 0 /uL (0-100); Basophils Percent Auto 0.7 % (0-2); Eosinophils Absolute Auto 0 /uL (0-450); Eosinophils Percent Auto 0.5 % (2-4); Hematocrit 44.9 % (41-53); Hemoglobin 15.4 g/dL (13.5-17.5); Lymphocytes Absolute Auto 1400 /uL (1100-4500); Lymphocytes Percent Auto 21.4 % (25-40); Mean Corpuscular HGB Conc 34.2 % (30-36); Mean Corpuscular Hemoglobin 33.5 PG (26-34); Monocytes Absolute Auto 500 /uL (0-900); Monocytes Percent Auto 7.3 % (3-14); Neutrophils Absolute Auto 4700 /uL (1500-7000); Neutrophils Percent Auto 70.1 % (50-75); Platelet Count 177 X10^3/uL (150-400); Red Blood Cell Count 4.59 X10^6/uL (4.5-5.9); Red Cell Distribution Width 13.9 % (11.6-14.8); White Blood Cell Count 6.7 X10^3/uL (4.5-11.0)
[2021-05-18 14:25] LABS: Prothrombin Time 11.7 SECONDS (10.1-12.7)
[2021-05-18 14:28] LABS: PTT Partial Thromboplastin Tim 29 SECONDS (26.4-36.2)
[2021-05-18 14:30] LABS: Alanine Aminotransferase 24 IU/L (<50); Albumin 4.3 g/dL (3.5-5.0); Albumin Globulin Ratio 1.5 (1.0-2.8); Alkaline Phosphatase 56 U/L (38-126); Aspartate Aminotransferase 26 IU/L (17-59); BUN Creatinine Ratio 31.9 (6-22); Bilirubin Total 0.8 mg/dL (0.2-1.3); Blood Urea Nitrogen 29 mg/dL (9-20); Calcium 9.2 mg/dL (8.4-10.2); Carbon Dioxide 26 mmol/L (22-32); Chloride 103 mmol/L (98-107); Estimated Glomerular Filt Rate > 60.0 mL/min (>60); Globulin 2.8 g/dL (1.7-4.1); Glucose 130 mg/dL (80-110); HEMOLYSIS < 15 (0-50); Potassium 3.6 mmol/L (3.4-5.1); Sodium 138 mmol/L (137-145); Total Protein 7.1 g/dL (6.3-8.2)
[2021-05-18 16:12] LABS: Appearance Urine UA CLEAR; Bilirubin Urine UA NEGATIVE (NEGATIVE); Color Urine UA YELLOW; Glucose Urine UA NEGATIVE (Negative); Ketones Urine UA NEGATIVE (NEGATIVE); Leukocyte Esterase Urine UA NEGATIVE (NEGATIVE); Nitrite Urine UA NEGATIVE (Negative); Occult Blood Urine UA NEGATIVE (Negative); Protein Urine UA NEGATIVE (Negative); Specific Gravity Urine UA 1.015 (1.000-1.035); Urobilinogen Urine UA 0.2 E.U./dL (0.2); pH Urine UA 7.5 (4.5-8.0)
[2021-05-18 16:16] LABS: UR Morphine/Opiate cutoff 300 Negative (Negative); Ur Creatinine Normal (Normal); Ur Specific Gravity Normal (Normal); Urine Amphetamines Negative (Negative); Urine Barbiturates Negative (Negative); Urine Benzodiazepines Negative (Negative); Urine Cocaine Negative (Negative); Urine MDMA Negative (Negative); Urine Methadone Negative (Negative); Urine Methamphetamines Negative (Negative); Urine Oxycodone Negative (Negative); Urine Phencyclidine Negative (Negative); Urine Tetrahydrocannabinol Negative (Negative); Urine Tricyclic Antidepressant Negative (Negative); Urine pH Normal (Normal)
[2021-05-18 16:18] LABS: RBC Urine None Seen (0-5/HPF); Squamous Epithelial Cell Urine 0-1 /HPF (0-5/HPF); WBC Urine 0-1/HPF (0-5/HPF)
[2021-05-18 16:19] LABS: Bacteria Urine None Seen; Culture Indicated Urine Cult Not Indicated
[2021-05-18] MEDS: DEXAMETHASONE 10 MG/ML VIAL 6 MG IV ×2 (18:11→23:35)
[2021-05-18] MEDS: levETIRAcetam 1,000 MG in SODIUM CHLORIDE 0.9% 100 ML 440 ML IV (18:15)
[2021-05-18] MEDS: FAMOTIDINE 20 MG/2 ML VIAL IV (18:22)
[2021-05-19] VITALS (31 sets, daily range): BP systolic 133–165; BP diastolic 63–77; PULSE 50–96; RESP 9–33; O2SAT 93–96
[2021-05-19] MEDS: DEXAMETHASONE 10 MG/ML VIAL 6 MG IV ×3 (05:57→17:43)
--- NOTE | 2021-05-19 06:02 | PC.NURSE ---
Pt resting in bed throughout night. Good mobility, independent with urinal use and bed mobility.
[2021-05-19] MEDS: levETIRAcetam 1,000 MG in SODIUM CHLORIDE 0.9% 100 ML 440 ML IV ×2 (07:22→18:37)
[2021-05-19] MEDS: NIFEdipine 30 MG TAB ER 60 MG PO (09:06)
[2021-05-19] MEDS: FAMOTIDINE 20 MG/2 ML VIAL IV (09:06)
[2021-05-19] MEDS: ACETAMINOPHEN 325 MG TABLET 975 MG PO (09:52)
[2021-05-19 18:07] LABS: COVID19 -Nasal RAPID Negative (Negative)
--- NOTE | 2021-05-19 18:44 | PC.NURSE ---
dede castellanos cell [phone] fletcher [phone]
[2021-05-19] MEDS: ATORVASTATIN 20 MG TABLET 10 MG PO (20:54)
[2021-05-19] MEDS: TAMSULOSIN 0.4 MG CAPSULE PO (20:54)
== END 2021-05-19 21:16 | disposition short-term general hospital (02) ==
PROVIDERS: Emergency Medicine; Physician Assistant; Emergency Provider Emergency Medicine; PCP Nurse Practitioner Family
DX: G93.89 Other specified disorders of brain (principal); G93.6 Cerebral edema; I10 Essential (primary) hypertension; Z20.822 Contact with and (suspected) exposure to COVID-19
CPT/HCPCS: 36415; 70450; 70553; 80053; 80305; 81001; 81003; 82962; 85025; 85610; 85730; 87635; 93005; 96365; 96366; 96375; 96376; 99285; C9803; J1100; J1953

== ENCOUNTER → 2021-08-13 11:06 | Outpatient (CLI) | payer MEDICARE, OTHER, SELFPAY ==
--- NOTE | 2021-08-13 11:07 | DI.MRI.S_ITS ---
PROCEDURE: MR HEAD/BRAIN WO/W CON INDICATIONS: glioblastoma post treatment eval TECHNIQUE: Noncontrast axial T1 spin echo, axial T2 fast spin echo, sagittal and axial FLAIR, coronal T2 fast spin echo, axial gradient echo, axial diffusion and ADC through the brain. After the administration of contrast, axial and coronal T1 spin echo with fat saturation through the brain. COMPARISON: Outside Film, MR, MR BRAIN WITH/WITHOUT CONTRAST, 06/04/2021, 10:17. [facility], MR, MR HEAD/BRAIN WO/W CON, 05/18/2021, 14:40. [facility], CT, CT STROKE, 05/18/2021, 13:04. Outside Film, MR, MR BRAIN WITH/WITHOUT CONTRAST, 05/18/2021, 14:40. FINDINGS: Image quality: Excellent. CSF spaces: Basal cisterns are patent. There is a mild right-sided chronic subdural hygroma seen, measuring 5 mm in thickness. Ventricles are normal in size and shape. Brain: Right temporal lobe resection changes are seen, with volume loss and surrounding encephalomalacia. Along the margins of the resection cavity, there is irregular, infiltrative appearing enhancement seen, particular along the anterior and posterior aspects of the resection cavity. When compared to the 06/04/2021 examination, the degree of enhancement has increased. No new masses or areas of abnormal enhancement can be seen. No midline shift. There is cerebral volume loss for age. There is periventricular white matter chronic small vessel ischemic change. The brainstem appears normal. Diffusion-weighted images demonstrate no acute ischemic insults. Normal intravascular flow voids are present. Skull and face: Left-sided craniotomy changes are seen. Calvarial marrow is normal in signal. Orbits appear normal. Note is made of bilateral lens replacements. Sinuses: Sinuses and mastoids appear clear. IMPRESSION: Abnormal enhancement seen along the right temporal lobe margins of the resection cavity, with high concern for local recurrence. Dictated by: Mariusz Tafoya M.D. on 08/13/2021 at 11:43 Approved by: Mariusz Tafoya M.D. on 08/13/2021 at 11:46
== END ==
PROVIDERS: PCP Nurse Practitioner Family; Referring Provider Internal Medicine Medical Oncology; Visit Provider Internal Medicine Medical Oncology
DX: C71.2 Malignant neoplasm of temporal lobe (principal); G93.89 Other specified disorders of brain
CPT/HCPCS: 70553

== ENCOUNTER 2021-10-03 16:35 | Inpatient (IN) | payer MEDICARE, OTHER, SELFPAY ==
[2021-10-03] VITALS (8 sets, daily range): BP systolic 140–155; BP diastolic 72–78; PULSE 61–107; RESP 15–22; TEMP 36.4–37.1; O2SAT 96–98; BMI 33.3
--- NOTE | 2021-10-03 16:45 | DI.CT.S_ITS ---
PROCEDURE: CT HEAD/BRAIN WO/W CON INDICATIONS: confusion, glioblastoma, partial resection w/ rads on chemo TECHNIQUE: 4.5 mm thick angled axial sections acquired from the foramen magnum to the vertex both before and after the administration of intravenous contrast, with coronal and sagittal reformats. For radiation dose reduction, the following was used: automated exposure control, adjustment of mA and/or kV according to patient size. COMPARISON: Outside Film, MR, MR BRAIN WITH/WITHOUT CONTRAST, 06/04/2021, 10:17. Outside Film, MR, MR BRAIN WITH/WITHOUT CONTRAST, 05/18/2021, 14:40. , MR, MR HEAD/BRAIN WO/W CON, 05/18/2021, 14:40. , CT, CT STROKE, 05/18/2021, 13:04. , MR, MR HEAD/BRAIN WO/W CON, 08/13/2021, 11:16. FINDINGS: Image quality: Excellent. CSF spaces: Basal cisterns are patent. No extra-axial fluid collections. Ventricles are symmetric in size and shape. Brain: There is a right temporal lobe resection cavity seen, with volume loss and encephalomalacia. Along the margins the resection cavity, a mild amount of enhancement can be seen. When compared to the recent prior MRI examination, the degree of enhancement within the right posterior lobe posterior to the resection cavity appears to have increased. No new masses are seen. No midline shift. There is cerebral volume loss for age. There is periventricular white matter chronic small vessel ischemic change. There is intracranial internal carotid artery atherosclerosis. Skull and face: Calvarium and visualized facial bones appear intact, without suspicious lesions. Sinuses: Visualized sinuses and mastoids are clear. IMPRESSION: Adjacent to the right temporal lobe resection cavity, there is abnormally increased enhancement, which appears worse than on the recent prior MRI examination. If clinically appropriate, please consider a follow-up brain MRI, performed without and with contrast for further evaluation. Dictated by: Mariusz Tafoya M.D. on 10/03/2021 at 16:55 Approved by: Mariusz Tafoya M.D. on 10/03/2021 at 16:59
--- NOTE | 2021-10-03 16:47 | ED_ITS ---
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 He had 21 days. He also had a 2nd cycle of chemotherapy and is taking dexamethasone 4 mg daily which has improved any confusion and altered mental status. He follows with Dr. Chaparro with oncology through [facility]. Patient's family contacted EMS because he has had several episodes of delirium over the last several weeks the most recent today. Described by EMS secondary from family patient has been believing people or in the house that are present. Patient states that he does not believe he is having any hallucinations but he does feel kind of confused and off from his normal. He does not recall the year, he does not recall that it is [facility] today but he is a dye that he had surgery in May for a glioblastoma and he has been getting chemo and radiation, he knows who his primary care physician. Patient does note he has had some urinary issues with some incontinence, sense of urgency and frequency but no dysuria or discharge. He denies any fevers or chills. He denies any headache today. No chest pain or shortness of breath. He denies any nausea or vomiting he denies any abdominal pain or sensation of incomplete voiding, he denies any constipation or diarrhea. He does not know any significant worsening of swelling in his extremities. He does know that he takes medications daily but does not recall what they were except for blood pressure. Patient denies any tobacco use, occasional alcohol, no illicit. His primary care is F[facility] in [facility]. He is and lives independently with his . Related Data Home Medications Medication Instructions Recorded Confirmed cyclosporine 0.05 % eye drops in a 1 drp [facility] BID #0 04/19/17 09/28/21 dropperette (Restasis) [place]-3 Fish oil 1,400 mg PO DAILY 08/09/18 09/28/21 aspirin 81 mg tablet,delayed 81 mg PO DAILY 08/09/18 09/28/21 release (Adult Aspirin Regimen) cholecalciferol (vitamin D3) 25 1,000 unit PO DAILY 08/09/18 09/28/21 mcg (1,000 unit) capsule multivitamin with minerals (Men's 1 tab PO DAILY 08/09/18 09/28/21 One Daily) dexamethasone 2 mg tablet 4 mg PO BID tab 09/22/21 09/28/21 magnesium citrate 125 mg capsule 125 mg PO DAILY 09/22/21 09/28/21 Previous Rx's Medication Instructions Recorded nifedipine 60 mg tablet,extended 60 mg PO QDAY #90 tab 05/26/21 release tamsulosin 0.4 mg capsule 0.4 mg PO DAILY #90 cap 05/26/21 temozolomide 140 mg capsule 140 mg PO DAILY #42 cap 06/24/21 (Temodar) temozolomide 20 mg capsule 20 mg PO DAILY #42 cap 06/24/21 omeprazole 20 mg capsule,delayed 20 mg PO QDAY #90 tab 06/28/21 release ondansetron HCl 4 mg tablet 4 mg PO Q6H #60 tab 07/21/21 temozolomide 100 mg capsule 300 mg PO DAILY #15 cap 08/18/21 (Temodar) atorvastatin 10 mg tablet See Rx Instructions .ROUTE 08/20/21 .COMPLEX #90 tab hydrochlorothiazide 25 mg tablet See Rx Instructions .ROUTE 08/20/21 .COMPLEX #90 tab diclofenac sodium 1 % topical gel 2 g TOPICAL QID #100 g 09/22/21 allopurinol 300 mg tablet 300 mg PO QDAY #90 tab 09/27/21 dexamethasone 2 mg tablet 2 mg PO DAILY #60 tab 09/28/21 Allergies Allergy/AdvReac Type Severity Reaction Status Date / Time No Known Drug Allergies Allergy Verified 09/22/21 13:35 Review of Systems Review of Systems ROS Unobtainable: All systems reviewed & are unremarkable except as noted in HPI and below Patient History Medical History Actinic keratosis Aortic ectasia, 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 Father No problems noted. Mother No problems noted. Brother No problems noted. Social History marital status: household members: spouse education level: college Smoking Status: Never smoker second hand exposure: No alcohol intake: current substance use type: does not use Smoking Status: Never smoker alcohol intake frequency: 0-2 drinks per day Substance Use Type: does not use Exam Narrative Exam Narrative: GEN: Obese, well-appearing male, alert and oriented to self patient is unable to give me the year, the current holiday which is Easter today but is able to give some past medical history with accuracy, patient appears to be in mild distress. HEENT: Atraumatic patient has healed incision on his parietal scalp, pupils are equal round reactive to light, extraocular movements are intact, nares are clear, TMs are clear with no fluid, there is no conjunctival pallor. Throat is clear without any exudates, erythema, tonsillar enlargement or uvular deviation, patient has clear speech. HEART: Regular rate and rhythm without murmur, clicks, rubs. No carotid bruits, pulses are equal in upper and lower extremities LUNGS:Lungs clear to auscultation, no wheezes, rales, crackles, chest moves symmetrically, no tachypnea accessory muscle use. ABD:bowel sounds normal, soft, non-tender, no guarding, rebound, rigidity, no masses noted, no hepatosplenomegaly :No CVA tenderness MSCL: Non-tender, no muscle atrophy, muscles strength 5/5 upper and lower extremities, full range of motion, patient able to stand and sit from the [facility] urine sample. NEURO:CN 2-12 intact, sensation normal. SKIN: No rash, erythema or other skin changes noted. Initial Vital Signs Initial Vital Signs: Vital Signs Temperature 98.7 F 10/03/21 16:35 Pulse Rate 104 H 10/03/21 16:35 Respiratory Rate 22 10/03/21 16:35 Blood Pressure 152/72 H 10/03/21 16:35 Pulse Oximetry 96 10/03/21 16:35 Course Orders Ordered: ED Orders 10/03/21 16:29 Blood Culture Stat 10/03/21 16:45 CT head/brain wo/w con Stat EKG-12 Lead Stat 10/03/21 16:49 BNP [NT-proBNP (BNP-Adult 18+)] Stat Complete Blood Count AUTO DIFF Stat Comprehensive Metabolic Panel Stat Lactate (Lactic Acid) Stat Prolactin Stat Thyroid Stimulating Hormone Stat Troponin & CK Cardiac Panel Stat 10/03/21 16:58 Urinalysis and Microscopic Stat Urine Drug Screen, Rapid Stat 10/03/21 18:50 Urine Culture Stat Discontinued Medications Dexamethasone (Dexamethasone 10 Mg/Ml Vial) 10 mg PO NOW ONE Stop: 10/03/21 17:18 Last Admin: 10/03/21 17:45 Dose: Not Given Documented by: BTONER Dexamethasone (Dexamethasone 10 Mg/Ml Vial) 10 mg IV NOW ONE Stop: 10/03/21 17:45 Last Admin: 10/03/21 17:45 Dose: 10 mg Documented by: BTONER Ceftriaxone Sodium 2,000 mg/ (Sodium Chloride) 100 mls @ 200 mls/hr IV NOW ONE Stop: 10/03/21 19:04 Lorazepam (Lorazepam 2 Mg/Ml Inj) 0.5 mg IV NOW ONE Stop: 10/03/21 19:17 Last Admin: 10/03/21 19:26 Dose: 0.5 mg Documented by: Consultations Consultation #1: Neurosurgery, Dr. Eagle covering for Dr. Chaparro, [facility]. He reviewed patient's imaging does recommend Decadron 10 mg initially which has been given and then 4 mg q.6 hours. He will chat with Dr. Chaparro and let him know patient is present but at this time no other acute neurosurgical intervention is recommended but does state that this could likely be a part of patient's symptomatology. Time: 19:00 Consultation #2: Dr. Mcgarry, oncology covering for Dr. Garcia also agrees with Neurosurgery's recommendations. They asked to try to get MRI tomorrow we did have that capability today patient had with and without on his last MRI in July. He is available for phone consultation tomorrow and is happy to follow along with the patient for any additional questions. We did discuss no other clear signs of infection or other source of his symptoms currently. Consultation #3: FERNANDEZ Self. Hospitalist service. Accepts for inpatient admission. Discussed concern for recurrent glioblastoma, imaging, recommendation from Oncology as well as no surgery was reviewed and patient has had 10 mg IV loaded initially with recommendations to include 4 mg q.6 hours. No other clear source has been found. Patient is DNR/DNI according to his and states he has filled out paperwork supporting this as well. Vital Signs Vital signs: Vital Signs - 8 hr 10/03/21 16:35 10/03/21 16:37 10/03/21 17:20 Temperature 98.7 F Pulse Rate 104 H 107 H 99 H Respiratory Rate 22 19 15 Blood Pressure 152/72 H Pulse Oximetry 96 96 98 10/03/21 17:30 10/03/21 18:00 10/03/21 18:30 Temperature Pulse Rate 105 H 93 H 91 H Respiratory Rate 18 20 18 Blood Pressure 140/73 155/78 H Pulse Oximetry 98 98 MDM - Altered Mental Status Lab Data Result diagrams: 10/03/21 16:49 10/03/21 16:49 Labs: Lab Results 10/03/21 10/03/21 10/03/21 Range/Units 16:49 16:49 16:49 WBC 9.3 (4.5-11.0) X10^3/uL RBC 4.93 (4.5-5.9) X10^6/uL Hgb 17.4 (13.5-17.5) g/dL Hct 50.3 (41-53) % MCV 102.2 H (80-100) fL MCH 35.3 H (26-34) PG MCHC 34.5 (30-36) % RDW 14.1 (11.6-14.8) % Plt Count 191 (150-400) X10^3/uL Neut % (Auto) 84.1 H (50-75) % Lymph % (Auto) 9.3 L (25-40) % [place] % (Auto) 6.3 (3-14) % Eos % (Auto) 0.1 L (2-4) % Baso % (Auto) 0.2 (0-2) % Neut # (Auto) 7800 H (8203-4128) /uL Lymph # (Auto) 900 L (5416-6722) /uL Stephenson # (Auto) 600 (0-900) /uL Eos # (Auto) 0 (0-450) /uL Baso # (Auto) 0 (0-100) /uL Sodium 139 (137-145) mmol/L Potassium 3.4 (3.4-5.1) mmol/L Chloride 103 (98-107) mmol/L Carbon Dioxide 27 (22-32) mmol/L BUN 24 H (9-20) mg/dL Creatinine 0.78 (0.66-1.25) mg/dL Estimated GFR > 60 (>60) mL/min BUN/Creatinine Ratio 30.8 H (6-22) Glucose 127 H (80-110) mg/dL Lactate 2.1 (0.7-2.1) mmol/L Calcium 9.5 (8.4-10.2) mg/dL Total Bilirubin 0.9 (0.2-1.3) mg/dL AST 39 (17-59) IU/L ALT 45 (<50) IU/L Alkaline Phosphatase 55 (38-126) U/L Total Creatine Kinase (55-170) U/L CK-MB (CK-2) CK-MB (CK-2) Rel Index Troponin I (0.01-0.034) ng/mL NT-Pro-B Natriuret Pep (<450) pg/mL Total Protein 7.6 (6.3-8.2) g/dL Albumin 4.7 (3.5-5.0) g/dL Globulin 2.9 (1.7-4.1) g/dL Albumin/Globulin Ratio 1.6 (1.0-2.8) TSH (0.47-4.68) uIU/mL Prolactin 13.9 (3.7-17.9) ng/mL Urine Color Urine Appearance Urine pH (4.5-8.0) Ur Specific [place] (1.000-1.035) Urine Protein (Negative) Urine Glucose (UA) (Negative) g/dL Urine Ketones (NEGATIVE) Urine Occult Blood (Negative) Urine Nitrate (Negative) Urine Bilirubin (NEGATIVE) Urine Urobilinogen (0.2) E.U./dL Ur Leukocyte Esterase (NEGATIVE) Urine RBC (0-5/HPF) Urine WBC (0-5/HPF) Amorphous Sediment Urine Bacteria (None) Urine Mucus (Negative) Ur Culture Indicated? U Opiates 300ng/mL cut (Negative) Ur Oxycodone Screen (Negative) Urine Methadone Screen (Negative) Ur Barbiturates Screen (Negative) U Tricyclic Antidepress (Negative) Ur Phencyclidine Scrn (Negative) Ur Amphetamines Screen (Negative) U Methamphetamines Scrn (Negative) Ur MDMA Scrn (Ecstasy) (Negative) U Benzodiazepines Scrn (Negative) Urine Cocaine Screen (Negative) U Marijuana (THC) Screen (Negative) 10/03/21 10/03/21 10/03/21 Range/Units 16:49 16:49 16:58 WBC (4.5-11.0) X10^3/uL RBC (4.5-5.9) X10^6/uL Hgb (13.5-17.5) g/dL Hct (41-53) % MCV (80-100) fL MCH (26-34) PG MCHC (30-36) % RDW (11.6-14.8) % Plt Count (150-400) X10^3/uL Neut % (Auto) (50-75) % Lymph % (Auto) (25-40) % Stephenson % (Auto) (3-14) % Eos % (Auto) (2-4) % Baso % (Auto) (0-2) % Neut # (Auto) (3584-3905) /uL Lymph # (Auto) (9297-2516) /uL Stephenson # (Auto) (0-900) /uL Eos # (Auto) (0-450) /uL Baso # (Auto) (0-100) /uL Sodium (137-145) mmol/L Potassium (3.4-5.1) mmol/L Chloride (98-107) mmol/L Carbon Dioxide (22-32) mmol/L BUN (9-20) mg/dL Creatinine (0.66-1.25) mg/dL Estimated GFR (>60) mL/min BUN/Creatinine Ratio (6-22) Glucose (80-110) mg/dL Lactate (0.7-2.1) mmol/L Calcium (8.4-10.2) mg/dL Total Bilirubin (0.2-1.3) mg/dL AST (17-59) IU/L ALT (<50) IU/L Alkaline Phosphatase (38-126) U/L Total Creatine Kinase 74 (55-170) U/L CK-MB (CK-2) TNP CK-MB (CK-2) Rel Index TNP Troponin I < 0.012 (0.01-0.034) ng/mL NT-Pro-B Natriuret Pep 178 (<450) pg/mL Total Protein (6.3-8.2) g/dL Albumin (3.5-5.0) g/dL Globulin (1.7-4.1) g/dL Albumin/Globulin Ratio (1.0-2.8) TSH 0.972 (0.47-4.68) uIU/mL Prolactin (3.7-17.9) ng/mL Urine Color Yellow Urine Appearance Clear Urine pH 7.0 (4.5-8.0) Ur Specific [place] 1.015 (1.000-1.035) Urine Protein Negative (Negative) Urine Glucose (UA) Negative (Negative) g/dL Urine Ketones Negative (NEGATIVE) Urine Occult Blood Negative (Negative) Urine Nitrate Negative (Negative) Urine Bilirubin Negative (NEGATIVE) Urine Urobilinogen 0.2 (0.2) E.U./dL Ur Leukocyte Esterase Negative (NEGATIVE) Urine RBC 0-1/hpf (0-5/HPF) Urine WBC None seen (0-5/HPF) Amorphous Sediment 2+ Urine Bacteria None seen (None) Urine Mucus 1+ H (Negative) Ur Culture Indicated? Cult not indicated U Opiates 300ng/mL cut (Negative) Ur Oxycodone Screen (Negative) Urine Methadone Screen (Negative) Ur Barbiturates Screen (Negative) U Tricyclic Antidepress (Negative) Ur Phencyclidine Scrn (Negative) Ur Amphetamines Screen (Negative) U Methamphetamines Scrn (Negative) Ur MDMA Scrn (Ecstasy) (Negative) U Benzodiazepines Scrn (Negative) Urine Cocaine Screen (Negative) U Marijuana (THC) Screen (Negative) 10/03/21 Range/Units 16:58 WBC (4.5-11.0) X10^3/uL RBC (4.5-5.9) X10^6/uL Hgb (13.5-17.5) g/dL Hct (41-53) % MCV (80-100) fL MCH (26-34) PG MCHC (30-36) % RDW (11.6-14.8) % Plt Count (150-400) X10^3/uL Neut % (Auto) (50-75) % Lymph % (Auto) (25-40) % Stephenson % (Auto) (3-14) % Eos % (Auto) (2-4) % Baso % (Auto) (0-2) % Neut # (Auto) (7457-6591) /uL Lymph # (Auto) (9483-1332) /uL [place] # (Auto) (0-900) /uL Eos # (Auto) (0-450) /uL Baso # (Auto) (0-100) /uL Sodium (137-145) mmol/L Potassium (3.4-5.1) mmol/L Chloride (98-107) mmol/L Carbon Dioxide (22-32) mmol/L BUN (9-20) mg/dL Creatinine (0.66-1.25) mg/dL Estimated GFR (>60) mL/min BUN/Creatinine Ratio (6-22) Glucose (80-110) mg/dL Lactate (0.7-2.1) mmol/L Calcium (8.4-10.2) mg/dL Total Bilirubin (0.2-1.3) mg/dL AST (17-59) IU/L ALT (<50) IU/L Alkaline Phosphatase (38-126) U/L Total Creatine Kinase (55-170) U/L CK-MB (CK-2) CK-MB (CK-2) Rel Index Troponin I (0.01-0.034) ng/mL NT-Pro-B Natriuret Pep (<450) pg/mL Total Protein (6.3-8.2) g/dL Albumin (3.5-5.0) g/dL Globulin (1.7-4.1) g/dL Albumin/Globulin Ratio (1.0-2.8) TSH (0.47-4.68) uIU/mL Prolactin (3.7-17.9) ng/mL Urine Color Urine Appearance Urine pH (4.5-8.0) Ur Specific [place] (1.000-1.035) Urine Protein (Negative) Urine Glucose (UA) (Negative) g/dL Urine Ketones (NEGATIVE) Urine Occult Blood (Negative) Urine Nitrate (Negative) Urine Bilirubin (NEGATIVE) Urine Urobilinogen (0.2) E.U./dL Ur Leukocyte Esterase (NEGATIVE) Urine RBC (0-5/HPF) Urine WBC (0-5/HPF) Amorphous Sediment Urine Bacteria (None) Urine Mucus (Negative) Ur Culture Indicated? U Opiates 300ng/mL cut Negative (Negative) Ur Oxycodone Screen Negative (Negative) Urine Methadone Screen Negative (Negative) Ur Barbiturates Screen Negative (Negative) U Tricyclic Antidepress Negative (Negative) Ur Phencyclidine Scrn Negative (Negative) Ur Amphetamines Screen Negative (Negative) U Methamphetamines Scrn Negative (Negative) Ur MDMA Scrn (Ecstasy) Negative (Negative) U Benzodiazepines Scrn Negative (Negative) Urine Cocaine Screen Negative (Negative) U Marijuana (THC) Screen Negative (Negative) Point of Care Testing Glucose POC [address] scan - head: Radiologist's Impression: [address] [address] [address] Scan Report Signed Patient: Rigoberto Peng MR#: [id number] : 1945 Acct:[id number] Age/Sex: 76 / M Date of Service: 10/03/21 Loc: ED Accession Number: [id number] ?? Procedure: CT head/brain wo/w con Ordering Provider: Nissa Bobo D.O. PROCEDURE:? CT HEAD/BRAIN WO/W CON ? INDICATIONS:? confusion, glioblastoma, partial resection w/ rads on chemo ? TECHNIQUE:? 4.5 mm thick angled axial sections acquired from the foramen magnum to the vertex both before and after the administration of intravenous contrast, with coronal and sagittal reformats.? For radiation dose reduction, the following was used:? automated exposure control, adjustment of mA and/or kV according to patient size.? ? COMPARISON:? Outside Film, MR, MR BRAIN WITH/WITHOUT CONTRAST, 06/04/2021, 10:17.? Outside Film, MR, MR BRAIN WITH/WITHOUT CONTRAST, 05/18/2021, 14:40.? [facility], MR, MR HEAD/BRAIN WO/W CON, 05/18/2021, 14:40.? [facility], CT, CT STROKE, 05/18/2021, 13:04.? [facility], MR, MR HEAD/BRAIN WO/W CON, 08/13/2021, 11:16. ? FINDINGS:? Image quality:? Excellent.? ? CSF spaces:? Basal cisterns are patent.? No extra-axial fluid collections.? Vent ricles are symmetric in size and shape.? ? Brain:? There is a right temporal lobe resection cavity seen, with volume loss and encephalomalacia.? Along the margins the resection cavity, a mild amount of enhancement can be seen.? When compared to the recent prior MRI examination, the degree of enhancement within the right posterior lobe posterior to the resection cavity appears to have increased.? No new masses are seen. ? No midline shift.? There is cerebral volume loss for age.? There is periven tricular white matter chronic small vessel ischemic change.? There is intracranial internal carotid artery atherosclerosis.? ? Skull and face:? Calvarium and visualized facial bones appear intact, without suspicious lesions.? ? Sinuses:? Visualized sinuses and mastoids are clear.? IMPRESSION:? Adjacent to the right temporal lobe resection cavity, there is abnormally increased enhancement, which appears worse than on the recent prior MRI examination. ? If clinically appropriate, please consider a follow-up brain MRI, performed without and with contrast for further evaluation. ? ? Dictated by: Mariusz Tafoya M.D. on 10/03/2021 at 16:55 ? ? Approved by: Mariusz Tafoya M.D. on 10/03/2021 at 16:59?? ? ECG Data Attestation: I personally reviewed and interpreted this ECG as follows: Prior ECG tracings: not available for review Interpretation: Sinus tachycardia rate of 104, NC 170 QRS 84 and QTC 465. No acute ST elevation or depression noted. Patient has prior from 05/18/2021 no acute changes. MDM Narrative Medical decision making narrative: This is a 76-year-old male brought for hallucinations. Patient has history of glioblastoma with partial resection in May, he has had some altered mental status and hallucinations in the past. He has reportedly had dexamethasone 4 mg daily according to his oncology note. Head CT with and without were obtained is MRI is unavailable today which is how he has typically been imaged with his last imaging in July of 2021 at that time patient had are normal enhancement the right temporal lobe margins of the resection cavity with high concern for local recurrence. Patient is slightly tachycardic he does have some bilateral lower extremity edema. He is alert, he is able to give some history but does have confusion, his exam is otherwise benign. Labs and imaging today show increased enhancement but no obvious edema. Patient was retaining 460 mL of urine postvoid. Catheter was placed and patient had 460ml but with no improvement in his mental status and actually some worsening. Urine does not show any clear signs of infection but he was covered with a dose of antibiotic and urine culture was ordered. No other clear causes her found with his lab work today. Patient is on a low dose of dexamethasone according to his 2 mg twice daily for a total of pill 4 mg daily. Discussed with neurosurgery as well as Oncology and they both recommend increasing to 4 mg q.6 hours with initial loading dose of 10 mg already given. Discussed with the hospitalist who accepts for inpatient admission for worsening mental status in the setting of recurrence of glioblastoma with recent radiation treatment and chemotherapy. Discharge Plan Departure Patient Disposition: Admitted As Inpatient Clinical Impression: Hallucinations, Glioblastoma of temporal lobe Admit Date/Time: 10/03/21 19:25 Admit Provider: Natalya Mcgarry
[2021-10-03 16:59] LABS: Alanine Aminotransferase 45 IU/L (<50); Albumin 4.7 g/dL (3.5-5.0); Albumin Globulin Ratio 1.6 (1.0-2.8); Alkaline Phosphatase 55 U/L (38-126); Aspartate Aminotransferase 39 IU/L (17-59); BUN Creatinine Ratio 30.8 (6-22); Bilirubin Total 0.9 mg/dL (0.2-1.3); Blood Urea Nitrogen 24 mg/dL (9-20); Calcium 9.5 mg/dL (8.4-10.2); Carbon Dioxide 27 mmol/L (22-32); Chloride 103 mmol/L (98-107); Creatine Kinase 74 U/L (55-170); Estimated Glomerular Filt Rate > 60 mL/min (>60); Globulin 2.9 g/dL (1.7-4.1); Glucose 127 mg/dL (80-110); HEMOLYSIS 40 (0-50); Potassium 3.4 mmol/L (3.4-5.1); Sodium 139 mmol/L (137-145); Total Protein 7.6 g/dL (6.3-8.2)
[2021-10-03 17:00] LABS: Lactate (Lactic Acid) 2.1 mmol/L (0.7-2.1)
[2021-10-03 17:06] LABS: Add Manual Diff / Slide Review NO; Basophils Absolute Auto 0 /uL (0-100); Basophils Percent Auto 0.2 % (0-2); Eosinophils Absolute Auto 0 /uL (0-450); Eosinophils Percent Auto 0.1 % (2-4); Hematocrit 50.3 % (41-53); Hemoglobin 17.4 g/dL (13.5-17.5); Lymphocytes Absolute Auto 900 /uL (1100-4500); Lymphocytes Percent Auto 9.3 % (25-40); Mean Corpuscular HGB Conc 34.5 % (30-36); Mean Corpuscular Hemoglobin 35.3 PG (26-34); Mean Corpuscular Volume 102.2 fL (80-100); Monocytes Absolute Auto 600 /uL (0-900); Monocytes Percent Auto 6.3 % (3-14); Neutrophils Percent Auto 84.1 % (50-75); Platelet Count 191 X10^3/uL (150-400); Red Blood Cell Count 4.93 X10^6/uL (4.5-5.9); Red Cell Distribution Width 14.1 % (11.6-14.8); White Blood Cell Count 9.3 X10^3/uL (4.5-11.0)
[2021-10-03 17:12] LABS: NT-proBNP (BNP-Adult 18+) 178 pg/mL (<450); Troponin I < 0.012 ng/mL (0.01-0.034)
[2021-10-03 17:16] LABS: Neutrophils Absolute Auto 7800 /uL (1500-7000); Prolactin 13.9 ng/mL (3.7-17.9)
[2021-10-03 17:29] LABS: Appearance Urine UA CLEAR; Bilirubin Urine UA NEGATIVE (NEGATIVE); Color Urine UA YELLOW; Glucose Urine UA NEGATIVE (Negative); Ketones Urine UA NEGATIVE (NEGATIVE); Leukocyte Esterase Urine UA NEGATIVE (NEGATIVE); Nitrite Urine UA NEGATIVE (Negative); Occult Blood Urine UA NEGATIVE (Negative); Protein Urine UA NEGATIVE (Negative); Specific Gravity Urine UA 1.015 (1.000-1.035); Urobilinogen Urine UA 0.2 E.U./dL (0.2)
[2021-10-03 17:30] LABS: Thyroid Stimulating Hormone 0.972 uIU/mL (0.47-4.68)
[2021-10-03 17:33] LABS: UR Morphine/Opiate cutoff 300 Negative (Negative); Ur Creatinine Normal (Normal); Ur Specific Gravity Normal (Normal); Urine Amphetamines Negative (Negative); Urine Barbiturates Negative (Negative); Urine Benzodiazepines Negative (Negative); Urine Cocaine Negative (Negative); Urine MDMA Negative (Negative); Urine Methadone Negative (Negative); Urine Methamphetamines Negative (Negative); Urine Oxycodone Negative (Negative); Urine Phencyclidine Negative (Negative); Urine Tetrahydrocannabinol Negative (Negative); Urine Tricyclic Antidepressant Negative (Negative); Urine pH Normal (Normal)
[2021-10-03 17:39] LABS: Amorphous Sediment Urine 2+; Bacteria Urine None Seen; Culture Indicated Urine Cult Not Indicated; Mucus Urine 1+ (Negative); RBC Urine 0-1/HPF (0-5/HPF); WBC Urine None Seen (0-5/HPF)
[2021-10-03] MEDS: DEXAMETHASONE 10 MG/ML VIAL IV (17:45)
[2021-10-03 18:49] LABS: Reflexed Lactate in 2 Hours Y
[2021-10-03] MEDS: LORazepam 2 MG/ML INJ 0.5 MG IV (19:26)
[2021-10-03 20:50] LABS: Lactate 2HR (Lactic Acid Rflx) 1.5 mmol/L (0.7-2.1)
--- NOTE | 2021-10-03 21:41 | P.HP_ITS ---
History of Present Illness History of Present Illness Date Patient Seen: 10/03/21 Time Patient Seen: 21:41 Chief complaint: Hallucinations Narrative: Rigoberto Peng is a 76 y.o. 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 He completed radiation 2 weeks ago and is taking temozolomide, completing a 2nd cycle as September 25 per his . He was brought into the emergency department due to increased confusion, hallucinating, and per the patient was getting more paranoid. He does admit to being confused more than his normal self, apparently was not oriented to time or the significance of today per the emergency department provider. He does endorse having prostate issues and his stated he had urinary retention in the emergency department requiring them to place a Augustin catheter. He denies having a headache he states that he did have a fever but does not know how high it was, denies sensorial symptoms, difficulty swallowing, nausea vomiting, abdominal pain, dysuria, diarrhea constipation, or peripheral neuropathies. Patient sees Dr. Garcia, oncologist, ED provider spoke with Dr. Napoles who is covering for Dr. Garcia. He also sees Dr. Chaparro, neurosurgeon at [place], Dr. Borges covering. ED consultation recommended administration of a loading dose of IV decadron 10 mg followed by 4 mg IV q 6 hours and to obtain an MRI w/wo contrast to assess if there is expansion of the glioblastoma. CT of the head ordered in the ED was concerning for ?abnormally increased enhancement, we which appears worse than on recent prior MRI exam.? His last MRI was done on August 13, 2021. Patient is afebrile, blood pressure 145/75, heart rate 61, respiratory rate 18, oxygen saturation 96% on room air he weighs 83.9 kg. CBC is unremarkable, he has a mild left shift of 7800, chemistries are unremarkable except for a mildly elevated glucose of 127 likely secondary to his dexamethasone use, liver enzymes within normal limits, prolactin was 13.9, UA was negative for UTI, COVID-19 PCR was not ordered in the ED and is now ordered and pending. 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 Father No problems noted. Mother No problems noted. Brother No problems noted. Social History: household members spouse Tobacco & Substance use: Smoking Status Never smoker alcohol intake current alcohol intake frequency 0-2 drinks per day Substance Use Type does not use Meds Home Medications and Allergies Home Medications Medication Instructions Recorded Confirmed Type cyclosporine 0.05 % eye drops in a 1 drp OPHTH BID #0 04/19/17 09/28/21 History dropperette (Restasis) Nenana-3 Fish oil 1,400 mg PO DAILY 08/09/18 09/28/21 History aspirin 81 mg tablet,delayed 81 mg PO DAILY 08/09/18 09/28/21 History release (Adult Aspirin Regimen) cholecalciferol (vitamin D3) 25 1,000 unit PO DAILY 08/09/18 09/28/21 History mcg (1,000 unit) capsule multivitamin with minerals (Men's 1 tab PO DAILY 08/09/18 09/28/21 History One Daily) nifedipine 60 mg tablet,extended 60 mg PO QDAY #90 tab 05/26/21 09/28/21 Rx release tamsulosin 0.4 mg capsule 0.4 mg PO DAILY #90 cap 05/26/21 09/28/21 Rx temozolomide 140 mg capsule 140 mg PO DAILY #42 cap 06/24/21 09/28/21 Rx (Temodar) temozolomide 20 mg capsule 20 mg PO DAILY #42 cap 06/24/21 09/28/21 Rx omeprazole 20 mg capsule,delayed 20 mg PO QDAY #90 tab 06/28/21 09/28/21 Rx release ondansetron HCl 4 mg tablet 4 mg PO Q6H #60 tab 07/21/21 09/28/21 Rx temozolomide 100 mg capsule 300 mg PO DAILY #15 cap 08/18/21 09/28/21 Rx (Temodar) atorvastatin 10 mg tablet See Rx Instructions .ROUTE 08/20/21 09/28/21 Rx .COMPLEX #90 tab hydrochlorothiazide 25 mg tablet See Rx Instructions .ROUTE 08/20/21 09/28/21 Rx .COMPLEX #90 tab dexamethasone 2 mg tablet 4 mg PO BID tab 09/22/21 09/28/21 History diclofenac sodium 1 % topical gel 2 g TOPICAL QID #100 g 09/22/21 09/28/21 Rx magnesium citrate 125 mg capsule 125 mg PO DAILY 09/22/21 09/28/21 History allopurinol 300 mg tablet 300 mg PO QDAY #90 tab 09/27/21 09/28/21 Rx dexamethasone 2 mg tablet 2 mg PO DAILY #60 tab 09/28/21 Rx Allergies Allergy/AdvReac Type Severity Reaction Status Date / Time No Known Drug Allergies Allergy Verified 09/22/21 13:35 Review of Systems Review of Systems ROS: Yes All systems reviewed with the patient and are negative except as othe rwise documented Exam Vital Signs (past 8 hours): - 10/03/21 16:35 10/03/21 16:37 10/03/21 17:20 Temperature 98.7 F Pulse Rate 104 H 107 H 99 H Respiratory Rate 22 19 15 Blood Pressure 152/72 H Pulse Oximetry 96 96 98 10/03/21 17:30 10/03/21 18:00 10/03/21 18:30 Temperature Pulse Rate 105 H 93 H 91 H Respiratory Rate 18 20 18 Blood Pressure 140/73 155/78 H Pulse Oximetry 98 98 10/03/21 21:08 Temperature 97.6 F Pulse Rate 61 Respiratory Rate 18 Blood Pressure 145/75 H Pulse Oximetry 96 Oxygen Delivery Method Room Air Narrative Exam Narrative: Gen: Alert, intermittenly confused, overweight 76 y.o. male, appears uncomfortable HEENT: healed surgical scar on right lower temporal region just superior to ear, well healed, atraumatic, conjunctiva clear, sclera non-icteric, oral mucosa pink and moist Neck: supple, full ROM, no JVD, trachea is midline Resp: Lungs CTA, non-labored breathing CV: RRR, no murmur or rubs Abd: soft, non-tender, normoactive BTs Skin: no lesions or rashes, dry and intact Neuro: Alert and oriented X 4 w/no focal deficits. Speech clear and coherent. Extremities: traced bilateral non-pitting edema, moves all 4 extremities, is ambulatory, negative Josue?s sign Psyche: normal mood and affect. Objective Labs Result Diagrams: 10/03/21 16:49 10/03/21 16:49 Labs: Laboratory Results - last 24 hr 10/03/21 10/03/21 10/03/21 16:49 16:49 16:49 WBC 9.3 RBC 4.93 Hgb 17.4 Hct 50.3 MCV 102.2 H MCH 35.3 H MCHC 34.5 RDW 14.1 Plt Count 191 Neut % (Auto) 84.1 H Lymph % (Auto) 9.3 L Newberry % (Auto) 6.3 Eos % (Auto) 0.1 L Baso % (Auto) 0.2 Neut # (Auto) 7800 H Lymph # (Auto) 900 L Newberry # (Auto) 600 Eos # (Auto) 0 Baso # (Auto) 0 Sodium 139 Potassium 3.4 Chloride 103 Carbon Dioxide 27 BUN 24 H Creatinine 0.78 Estimated GFR > 60 BUN/Creatinine Ratio 30.8 H Glucose 127 H Lactate 2.1 Calcium 9.5 Total Bilirubin 0.9 AST 39 ALT 45 Alkaline Phosphatase 55 Total Creatine Kinase CK-MB (CK-2) CK-MB (CK-2) Rel Index Troponin I NT-Pro-B Natriuret Pep Total Protein 7.6 Albumin 4.7 Globulin 2.9 Albumin/Globulin Ratio 1.6 TSH Prolactin 13.9 Urine Color Urine Appearance Urine pH Ur Specific Zwingle Urine Protein Urine Glucose (UA) Urine Ketones Urine Occult Blood Urine Nitrate Urine Bilirubin Urine Urobilinogen Ur Leukocyte Esterase Urine RBC Urine WBC Amorphous Sediment Urine Bacteria Urine Mucus Ur Culture Indicated? U Opiates 300ng/mL cut Ur Oxycodone Screen Urine Methadone Screen Ur Barbiturates Screen U Tricyclic Antidepress Ur Phencyclidine Scrn Ur Amphetamines Screen U Methamphetamines Scrn Ur MDMA Scrn (Ecstasy) U Benzodiazepines Scrn Urine Cocaine Screen U Marijuana (THC) Screen 10/03/21 10/03/21 10/03/21 16:49 16:49 16:58 WBC RBC Hgb Hct MCV MCH MCHC RDW Plt Count Neut % (Auto) Lymph % (Auto) Newberry % (Auto) Eos % (Auto) Baso % (Auto) Neut # (Auto) Lymph # (Auto) Newberry # (Auto) Eos # (Auto) Baso # (Auto) Sodium Potassium Chloride Carbon Dioxide BUN Creatinine Estimated GFR BUN/Creatinine Ratio Glucose Lactate Calcium Total Bilirubin AST ALT Alkaline Phosphatase Total Creatine Kinase 74 CK-MB (CK-2) TNP CK-MB (CK-2) Rel Index TNP Troponin I < 0.012 NT-Pro-B Natriuret Pep 178 Total Protein Albumin Globulin Albumin/Globulin Ratio TSH 0.972 Prolactin Urine Color Yellow Urine Appearance Clear Urine pH 7.0 Ur Specific Zwingle 1.015 Urine Protein Negative Urine Glucose (UA) Negative Urine Ketones Negative Urine Occult Blood Negative Urine Nitrate Negative Urine Bilirubin Negative Urine Urobilinogen 0.2 Ur Leukocyte Esterase Negative Urine RBC 0-1/hpf Urine WBC None seen Amorphous Sediment 2+ Urine Bacteria None seen Urine Mucus 1+ H Ur Culture Indicated? Cult not indicated U Opiates 300ng/mL cut Ur Oxycodone Screen Urine Methadone Screen Ur Barbiturates Screen U Tricyclic Antidepress Ur Phencyclidine Scrn Ur Amphetamines Screen U Methamphetamines Scrn Ur MDMA Scrn (Ecstasy) U Benzodiazepines Scrn Urine Cocaine Screen U Marijuana (THC) Screen 10/03/21 10/03/21 16:58 20:32 WBC RBC Hgb Hct MCV MCH MCHC RDW Plt Count Neut % (Auto) Lymph % (Auto) Newberry % (Auto) Eos % (Auto) Baso % (Auto) Neut # (Auto) Lymph # (Auto) Newberry # (Auto) Eos # (Auto) Baso # (Auto) Sodium Potassium Chloride Carbon Dioxide BUN Creatinine Estimated GFR BUN/Creatinine Ratio Glucose Lactate 1.5 Calcium Total Bilirubin AST ALT Alkaline Phosphatase Total Creatine Kinase CK-MB (CK-2) CK-MB (CK-2) Rel Index Troponin I NT-Pro-B Natriuret Pep Total Protein Albumin Globulin Albumin/Globulin Ratio TSH Prolactin Urine Color Urine Appearance Urine pH Ur Specific Zwingle Urine Protein Urine Glucose (UA) Urine Ketones Urine Occult Blood Urine Nitrate Urine Bilirubin Urine Urobilinogen Ur Leukocyte Esterase Urine RBC Urine WBC Amorphous Sediment Urine Bacteria Urine Mucus Ur Culture Indicated? U Opiates 300ng/mL cut Negative Ur Oxycodone Screen Negative Urine Methadone Screen Negative Ur Barbiturates Screen Negative U Tricyclic Antidepress Negative Ur Phencyclidine Scrn Negative Ur Amphetamines Screen Negative U Methamphetamines Scrn Negative Ur MDMA Scrn (Ecstasy) Negative U Benzodiazepines Scrn Negative Urine Cocaine Screen Negative U Marijuana (THC) Screen Negative Assessment & Plan Assessment & Plan narrative: Rigoberto Peng is admitted to the medical unit for further evaluation of encephalopathy secondary to a known diagnosis of glioblastoma. 1. Encephalopathy, likely secondary to expansion of glioblastoma * Recommended by neuro surgery to ED provider is to have the patient undergo MRI imaging with and without in the morning to ascertain/confirmed if the glioblastoma site has increased in size. * He was started on a loading dose of IV Decadron 10 mg and will receive IV Decadron 4 mg q.6 hours starting at 11:00 p.m. today. * He completed a cycle of tomozolomide on September 25, will resume 3 weeks October 11? 2. Essential hypertension, chronic * Continue home doses of Nifedipine 60 mg daily and hydrochlorothiazide 25 mg p.o. daily 3. Hyperlipidemia, chronic * Continue home dose of atorvastatin 10 mg p.o. at bedtime 4. BPH, chronic * Continue home dose of tamsulosin 0.4 mg p.o. in the evening * Augustin was placed due to urinary retention and had urine output of 500 mls when scanned and augustin placed. 5. History of gout, chronic * Continue home dose of allopurinol 300 mg p.o. daily 6. History of dry eye, chronic * Continue home dose of Restasis 0.4 mg L b.i.d. VTE Prophylaxis: Wells risk score 1 Enoxaparin 40 mg subQ once daily Patient is admitted to the inpatient service due to the severity of disease, risks of further disease progression and this stay is expected to exceed 2 midnights. FEN: IV fluids: saline lock, diet: heart healthy, labs: CBC, C/BMP, liver enzymes, Mag, PT/INR Consultants None. Dr. Napoles available for consult if deemed necessary Dispo: unknown at this time Code status: DNR/DNI as discussed with the patient who identifies Jenn, his as his surrogate and POA. [X] I have utilized all available immediate resources to obtain, update, or review of the patient's current medications COVID-19 COVID-19 status: Result pending Time Spent With Patient Critical Care time: I spent a total of [] minutes of critical care time on this patient's care today; this time is exclusive of procedural time. Scores Rashi' Criteria for PE Clinical signs and symptoms of DVT: No PE is #1 Dx or equally likely: No Heart rate > 100: No Immobilization at least 3 days or surg in previous 4 weeks: No History of PE or DVT: No Hemoptysis: No Malignancy w/Treatment within 6 months or palliative: Yes Rashi' PE Score total: 1 Quality VTE Deep Vein Thrombosis/Pulmonary Embolism Present on Admission: No MIPS - Admit I confirm the patient?s Advance Care Plan is present, Code status is documented, Surrogate decision maker is in patient?s record [If Yes, STOP here]: Yes MIPS - DC The patient has current or prior documentation of left ventricular ejection fraction (LVEF) less than 40%, or moderate or severely depressed left ventricular systolic function.: No
--- NOTE | 2021-10-03 21:52 | DI.MRI.S_ITS ---
PROCEDURE: MR HEAD/BRAIN WO/W CON INDICATIONS: new confusion, undergoing chemo for glioblastoma (right) TECHNIQUE: Noncontrast axial T1 spin echo, axial T2 fast spin echo, sagittal and axial FLAIR, coronal T2 fast spin echo, axial gradient echo, axial diffusion and ADC through the brain. After the administration of contrast, axial and coronal T1 spin echo with fat saturation through the brain. COMPARISON: [facility], MR, MR HEAD/BRAIN WO/W CON, 08/13/2021, 11:16. [facility], CT, CT HEAD/BRAIN WO/W CON, 10/03/2021, 16:55. [facility], MR, MR BRAIN WITH/WITHOUT CONTRAST, 06/04/2021, 10:17. Outside Film, MR, MR BRAIN WITH/WITHOUT CONTRAST, 05/18/2021, 14:40. [facility], MR, MR HEAD/BRAIN WO/W CON, 05/18/2021, 14:40. [facility], CT, CT STROKE, 05/18/2021, 13:04. FINDINGS: Image quality: This examination is limited by involuntary motion artifact. CSF spaces: Basal cisterns are patent. No extra-axial fluid collections. Ventricles are normal in size and shape. Brain: Right temporal lobe resection change can be seen, with volume loss and surrounding encephalomalacia. There is a mild amount of enhancement seen along the margins of the resection cavity. When compared to the 08/13/2021 examination, the overall degree of enhancement along the margins of the resection cavity is overall improved. No midline shift. There is cerebral volume loss for age. There is periventricular white matter chronic small vessel ischemic change. The brainstem appears normal. Diffusion-weighted images demonstrate no acute ischemic insults. No chronic ischemic insults. Normal intravascular flow voids are present. Skull and face: Right-sided craniotomy changes are seen. Calvarial marrow is normal in signal. Orbits appear normal. Note is made of bilateral lens replacements. Sinuses: Sinuses and mastoids appear clear. IMPRESSION: Right temporal lobe resection cavity, with mild enhancement along the margins of the resection cavity. Compared to the 08/13/2021 examination, the degree of abnormal enhancement along the resection cavity is clearly improved. Please correlate with interval treatment changes. On the recent prior CT dated 10/03/2021, there appears to be abnormally increased enhancement along the posterior aspect of the resection cavity. However, given this MRI appearance, the CT appearance is now considered to be artifactual. Please consider a follow-up brain MRI (without and with contrast) in 4-8 weeks for further evaluation. Dictated by: Mariusz Tafoya M.D. on 10/04/2021 at 14:16 Approved by: Mariusz Tafoya M.D. on 10/04/2021 at 14:20
[2021-10-03] MEDS: cefTRIAXone 2,000 MG in SODIUM CHLORIDE 0.9% 100 ML 200 ML IV (22:36)
[2021-10-03] MEDS: DEXAMETHASONE 4 MG/ML VIAL IV (22:51)
[2021-10-04] VITALS (10 sets, daily range): BP systolic 120–150; BP diastolic 55–75; PULSE 53–71; RESP 15–19; TEMP 36.2–37.7; O2SAT 92–97
[2021-10-04] MEDS: NIFEdipine 30 MG TAB ER 60 MG PO ×2 (00:55→09:14)
[2021-10-04] MEDS: PANTOPRAZOLE DR 20 MG TABLET PO ×2 (00:55→09:14)
[2021-10-04] MEDS: ATORVASTATIN 20 MG TABLET 10 MG PO ×2 (00:55→22:11)
[2021-10-04] MEDS: allopurinoL 300 MG TABLET PO ×2 (00:55→09:14)
[2021-10-04] MEDS: ACETAMINOPHEN 325 MG TABLET 650 MG PO (01:04)
[2021-10-04 01:25] LABS: COVID19 -Nasal RAPID Negative (Negative)
[2021-10-04] MEDS: DEXAMETHASONE 4 MG/ML VIAL IV ×3 (05:03→17:28)
[2021-10-04 05:18] LABS: Add Manual Diff / Slide Review NO; Basophils Absolute Auto 0 /uL (0-100); Basophils Percent Auto 0.3 % (0-2); Eosinophils Absolute Auto 0 /uL (0-450); Hemoglobin 15.5 g/dL (13.5-17.5); Lymphocytes Absolute Auto 400 /uL (1100-4500); Lymphocytes Percent Auto 4.7 % (25-40); Mean Corpuscular HGB Conc 34.6 % (30-36); Mean Corpuscular Volume 101.4 fL (80-100); Monocytes Absolute Auto 100 /uL (0-900); Monocytes Percent Auto 1.6 % (3-14); Neutrophils Absolute Auto 7800 /uL (1500-7000); Neutrophils Percent Auto 93.4 % (50-75); Platelet Count 147 X10^3/uL (150-400); Red Blood Cell Count 4.44 X10^6/uL (4.5-5.9); Red Cell Distribution Width 13.8 % (11.6-14.8); White Blood Cell Count 8.3 X10^3/uL (4.5-11.0)
[2021-10-04 05:47] LABS: BUN Creatinine Ratio 34.3 (6-22); Blood Urea Nitrogen 23 mg/dL (9-20); Calcium 8.9 mg/dL (8.4-10.2); Carbon Dioxide 25 mmol/L (22-32); Chloride 106 mmol/L (98-107); Estimated Glomerular Filt Rate > 60 mL/min (>60); Glucose 139 mg/dL (80-110); HEMOLYSIS < 15 (0-50); Potassium 3.8 mmol/L (3.4-5.1); Sodium 138 mmol/L (137-145)
--- NOTE | 2021-10-04 07:50 | PC.NURSE ---
admit from ED. dx: AMS r/t giblioblastoma (surgery this past fall) and CT shows recent changes. *abnormally increased. accompanied by Desirae. patient 3pa slider board transfer to hospital bed. oriented to room, call light, and gown placed. patient restless, removing gown, attempting to get OOB. i have to pee. augustin cath is patent, draining mod amt of yellow urine to gravity. after several c/o need to pee. vaseline and lube applied to tip of penis where catheter tubing was chaffing his skin. after this was applied, patient immediately expressed relief of need to pee symptom. JT field start d/c'd by patient at end of shift. report to BRONSON.
[2021-10-04] MEDS: TAMSULOSIN 0.4 MG CAPSULE PO (09:14)
[2021-10-04] MEDS: ASPIRIN EC 81 MG TABLET PO (09:14)
[2021-10-04] MEDS: hydroCHLOROthiazide 25 MG TABLET PO (09:14)
[2021-10-04] MEDS: ENOXAPARIN 40 MG/0.4 ML SYRINGE SUBCUT (09:14)
--- NOTE | 2021-10-04 11:12 | CM.DANOTE ---
Addendum entered by Lucy Lisa R.N. 10/04/21 14:54: Just found out that patient is currently under [facility], per Lisa. He is currently getting P.T, and speech. Since patient is inpatient, they will need resumption orders. Will fax them orders and DC Summary when patient discharges. Original Note: DCP: Case received, EMR reviewed and met with patient. Introduced self and role. Was able to obtain information regarding patient's baseline activity level prior to hospitalization. DCP assessment completed with information currently available. Patient is a 76 year old male who admitted yesterday evening to the care of the hospitalist team. PCP: Delmis Mayorga. Payer: confirmed: Medicare/[employer]. Patient came to the hospital via ambulance secondary to having increased delirium, confusion. Patient has history of glioblastoma, and just completed radiation. Patient is also continuing with chemo. He has an oncologist, Dr. Robles, in [place]. Met with patient in his room. He was sitting up in bed, having breakfast. Patient resides here in [place] with his spouse, Jenn. He uses a cane, also has a four wheeled walker, and does not drive. His spouse takes him to his appointments. P: DCP to continue to follow for any needs. Patient should be able to go home when he is deemed medically stable. Lucy Lisa RN/Accounts Receivable Executive Discharge Planning/Care Management Advanced directive, confirm from FAMILY Start: 10/04/21 07:34 Freq: Q24H Status: Active Protocol: Document 10/04/21 09:32 [facility] (Rec: 10/04/21 09:38 [facility] [id number]) Advance Directive, confirm on record Time 09:38 Person contacted patient Copy received No CM Discharge Assessment Start: 10/04/21 11:10 Freq: Status: Active Protocol: Document 10/04/21 11:10 (Rec: 10/04/21 11:12 [id number]) Discharge Planning Assessment Assigned House Carpenter Helper Lucy Lisa RN/Accounts Receivable Executive Advance Directives? Yes Advance Directives on File No History Provided By Patient,Significant Other Prior Living Arrangements House Household Members spouse Type of transporation used prior to Relies on Others admit Independent with ADL's Yes Is patient alert and oriented? Yes Needs Assistance With Home Chores / Shopping DME Already Rented / Owned FWW / Walker,Cane Barriers to Discharge No Discharge Plan Home Transportation Arrangement Spouse Referrals Initiated None needed Whiteboard Updated in Patient Room with Yes name and ext. # of House Carpenter Helper Review Status In Process Next Review Type Continued Stay Review
[2021-10-04] MEDS: DICLOFENAC 1% GEL 100 GM 1 APPLIC TOP ×2 (17:27→22:11)
--- NOTE | 2021-10-04 18:21 | P.PN_ITS ---
Subjective Subjective Date Patient Seen: 10/04/21 Interval history: 68-year-old male with a history of glioblastoma admitted to the hospital for acute metabolic encephalopathy, and delirium. Patient remains confused and at times agitated. He continues to attempt to get out of bed trying to urinate. His notes he appears somewhat better today. However according to nursing the patient continues to have agitation and behavioral disturbance Exam Vital Signs (past 8 hours): - 10/04/21 12:00 10/04/21 14:00 10/04/21 17:55 Temperature 97.4 F L 97.3 F L 98.4 F Pulse Rate 62 64 65 Respiratory Rate 15 19 18 Blood Pressure 126/66 142/73 H 120/55 L Pulse Oximetry 97 94 96 Oxygen Delivery Method Room Air Oxygen Flow Rate 0 Narrative Exam Narrative: Confused elderly male lying in bed Resp Other: Lungs clear to auscultation Cardio Other: Cardiac exam: Regular rate and rhythm normal S1-S2 GI Other: Abdomen: Soft and nontender Objective Labs Result Diagrams: 10/04/21 04:45 10/04/21 04:45 Labs: Laboratory Results - last 24 hr 10/03/21 10/04/21 10/04/21 20:32 01:00 04:45 WBC 8.3 RBC 4.44 L Hgb 15.5 Hct 45.0 MCV 101.4 H MCH 35.0 H MCHC 34.6 RDW 13.8 Plt Count 147 L Neut % (Auto) 93.4 H Lymph % (Auto) 4.7 L [place] % (Auto) 1.6 L Eos % (Auto) 0.0 L Baso % (Auto) 0.3 Neut # (Auto) 7800 H Lymph # (Auto) 400 L [place] # (Auto) 100 Eos # (Auto) 0 Baso # (Auto) 0 Sodium Potassium Chloride Carbon Dioxide BUN Creatinine Estimated GFR BUN/Creatinine Ratio Glucose Lactate 1.5 Calcium Magnesium SARS-CoV-2 (PCR) Negative 10/04/21 04:45 WBC RBC Hgb Hct MCV MCH MCHC RDW Plt Count Neut % (Auto) Lymph % (Auto) [place] % (Auto) Eos % (Auto) Baso % (Auto) Neut # (Auto) Lymph # (Auto) [place] # (Auto) Eos # (Auto) Baso # (Auto) Sodium 138 Potassium 3.8 Chloride 106 Carbon Dioxide 25 BUN 23 H Creatinine 0.67 Estimated GFR > 60 BUN/Creatinine Ratio 34.3 H Glucose 139 H Lactate Calcium 8.9 Magnesium 2.0 SARS-CoV-2 (PCR) PFSH Medical History Actinic keratosis Aortic ectasia, 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 Father No problems noted. Mother No problems noted. Brother No problems noted. Social History marital status: household members: spouse education level: college Smoking Status: Never smoker second hand exposure: No alcohol intake: current substance use type: does not use Assessment & Plan Assessment & Plan narrative: Rigoberto Peng is admitted to the medical unit for further evaluation of encephalopathy secondary to a known diagnosis of glioblastoma. 1. Encephalopathy, likely secondary to expansion of glioblastoma * Recommended by neuro surgery to ED provider is to have the patient undergo MRI imaging with and without in the morning to ascertain/confirmed if the glioblastoma site has increased in size. * He was started on a loading dose of IV Decadron 10 mg and will receive IV Deca dron 4 mg q.6 hours starting at 11:00 p.m. today. * He completed a cycle of tomozolomide on September 25, will resume 3 weeks October 11? * MRI of brain today * :? Right temporal lobe resection cavity, with mild enhancement along the margins of the resection cavity.? Compared to the 08/13/2021 examination, the degree of abnormal enhancement along the resection cavity is clearly improved.? Please correlate with interval treatment changes. ? On the recent prior CT dated 10/03/2021, there appears to be abnormally increased enhancement along the posterior aspect of the resection cavity.? However, given this MRI appearance, the CT appearance is now considered to be artifactual.? Will decrease Decadron, to 2 mg q.[address] Garcia further management Will start low-dose Seroquel given behavioral disturbance 2. Essential hypertension, chronic * Continue home doses of Nifedipine 60 mg daily and hydrochlorothiazide 25 mg p.o. daily 3. Hyperlipidemia, chronic * Continue home dose of atorvastatin 10 mg p.o. at bedtime 4. BPH, chronic * Continue home dose of tamsulosin 0.4 mg p.o. in the evening * Augustin was placed due to urinary retention and had urine output of 500 mls when scanned and augustin placed. 5. History of gout, chronic * Continue home dose of allopurinol 300 mg p.o. daily 6. History of dry eye, chronic * Continue home dose of Restasis 0.4 mg L b.i.d. VTE Prophylaxis: Wells risk score 1 Enoxaparin 40 mg subQ once daily Patient is admitted to the inpatient service due to the severity of disease, risks of further disease progression and this stay is expected to exceed 2 midnights. FEN: IV fluids: saline lock, diet: heart healthy, labs: CBC, C/BMP, liver enzymes, Mag, PT/INR Consultants? None. Dr. Napoles available for consult if deemed necessary Time Spent With Patient Critical Care time: I spent a total of [] minutes of critical care time on this patient's care today; this time is exclusive of procedural time. Quality VTE Deep Vein Thrombosis/Pulmonary Embolism Present on Admission: No
[2021-10-04] MEDS: QUETIAPINE 25 MG TABLET 12.5 MG PO (22:11)
[2021-10-05] VITALS (10 sets, daily range): BP systolic 115–138; BP diastolic 54–80; PULSE 53–100; RESP 16–18; TEMP 36.6–37.1; O2SAT 95–98
[2021-10-05] MEDS: ACETAMINOPHEN 325 MG TABLET 650 MG PO (04:03)
[2021-10-05] MEDS: DEXAMETHASONE 4 MG/ML VIAL 2 MG IV ×4 (04:05→18:33)
[2021-10-05 05:18] LABS: BUN Creatinine Ratio 37.5 (6-22); Blood Urea Nitrogen 24 mg/dL (9-20); Calcium 8.6 mg/dL (8.4-10.2); Carbon Dioxide 24 mmol/L (22-32); Chloride 108 mmol/L (98-107); Estimated Glomerular Filt Rate > 60 mL/min (>60); Glucose 124 mg/dL (80-110); HEMOLYSIS < 15 (0-50); Magnesium 2.1 mg/dL (1.6-2.3); Potassium 3.6 mmol/L (3.4-5.1); Sodium 137 mmol/L (137-145)
[2021-10-05 05:24] LABS: Add Manual Diff / Slide Review NO; Basophils Absolute Auto 0 /uL (0-100); Basophils Percent Auto 0.3 % (0-2); Eosinophils Absolute Auto 0 /uL (0-450); Hematocrit 44.9 % (41-53); Hemoglobin 15.2 g/dL (13.5-17.5); Lymphocytes Absolute Auto 500 /uL (1100-4500); Lymphocytes Percent Auto 4.8 % (25-40); Mean Corpuscular HGB Conc 33.9 % (30-36); Mean Corpuscular Hemoglobin 34.6 PG (26-34); Mean Corpuscular Volume 102.3 fL (80-100); Monocytes Absolute Auto 600 /uL (0-900); Monocytes Percent Auto 5.6 % (3-14); Neutrophils Absolute Auto 9000 /uL (1500-7000); Neutrophils Percent Auto 89.3 % (50-75); Platelet Count 145 X10^3/uL (150-400); Red Blood Cell Count 4.39 X10^6/uL (4.5-5.9); Red Cell Distribution Width 14.2 % (11.6-14.8); White Blood Cell Count 10.1 X10^3/uL (4.5-11.0)
[2021-10-05 07:03] LABS: Albumin 3.3 g/dL (3.5-5.0)
--- NOTE | 2021-10-05 10:46 | PC.NURSE ---
Day shift - I arrived to work and after shift report at 0740 the Pt started to become very agitated and is confused. Pt stated he wants to get out of here He also set off the bedalarm and was getting out of bed and started to pull on his augustin cathetar, I removed the catheter in order to prevent trauma. Pt also pulled off his telemetry. We were able to calm him and get him back to bed. Pt refused all morning meds after education and encouragement.
--- NOTE | 2021-10-05 12:18 | CM.DPC ---
DCP Cont: Discussed patient during team rounds. Was informed that patient was having increased confusion through the night, was attempting to get out of bed on his own, agitated. Dr. Silva indicated, could possibly be the steroids causing more confusion. Spouse has been at bedside. Dr. Silva indicated that she may be discussing with his oncologist, Dr. Ervin, who is at oncology next door. P: DCP to continue to monitor closely for needs. Lucy Lisa RN/[employer] Inspector
--- NOTE | 2021-10-05 15:12 | P.PN_ITS ---
Subjective Subjective Date Patient Seen: 10/05/21 Interval history: 76-year-old male admitted to the hospital for hallucinations, confusion, and delirium. Patient has a known history of glioblastoma. He was previously on 4 mg a day of Decadron. Patient remains agitated and at times confused. He has removed his Augustin catheter. He has pulled out IV's. Exam Vital Signs (past 8 hours): - 10/05/21 08:00 10/05/21 08:06 10/05/21 08:29 Temperature 98.0 F Pulse Rate 100 H Respiratory Rate 16 Blood Pressure 138/80 Pulse Oximetry 95 96 95 10/05/21 11:00 10/05/21 11:39 10/05/21 12:00 Temperature 98.3 F Pulse Rate 95 H 95 H Respiratory Rate 18 Blood Pressure 132/65 Pulse Oximetry 98 96 Oxygen Delivery Method Room Air Oxygen Flow Rate 0 Narrative Exam Narrative: Pleasant gentleman attempting to get out of bed to go to the restroom Resp Other: Lungs: Clear to auscultation Cardio Other: Cardiac exam: Regular rate and rhythm normal S1-S2 GI Other: Abdomen: Soft and nontender Extrem Other: Extremities: No edema Objective Labs Result Diagrams: 10/05/21 04:50 10/05/21 04:50 Labs: Laboratory Results - last 24 hr 10/05/21 10/05/21 10/05/21 04:50 04:50 04:50 WBC 10.1 RBC 4.39 L Hgb 15.2 Hct 44.9 MCV 102.3 H MCH 34.6 H MCHC 33.9 RDW 14.2 Plt Count 145 L Neut % (Auto) 89.3 H Lymph % (Auto) 4.8 L [place] % (Auto) 5.6 Eos % (Auto) 0.0 L Baso % (Auto) 0.3 Neut # (Auto) 9000 H Lymph # (Auto) 500 L [place] # (Auto) 600 Eos # (Auto) 0 Baso # (Auto) 0 Sodium 137 Potassium 3.6 Chloride 108 H Carbon Dioxide 24 BUN 24 H Creatinine 0.64 L Estimated GFR > 60 BUN/Creatinine Ratio 37.5 H Glucose 124 H Calcium 8.6 Magnesium 2.1 Albumin 3.3 L PFS Medical History Actinic keratosis Aortic ectasia, 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 Father No problems noted. Mother No problems noted. Brother No problems noted. Social History marital status: household members: spouse education level: college Smoking Status: Never smoker second hand exposure: No alcohol intake: current substance use type: does not use Assessment & Plan Assessment & Plan narrative: Encephalopathy, likely secondary to steroids * Recommended by neuro surgery to ED provider is to have the patient undergo MRI imaging with and without in the morning to ascertain/confirmed if the glioblastoma site has increased in size. * He was started on a loading dose of IV Decadron 10 mg and will receive IV Decadron 4 mg q.6 hours starting at 11:00 p.m. today. * He completed a cycle of tomozolomide on September 25, will resume 3 weeks October 11? * MRI of brain today * :? Right temporal lobe resection cavity, with mild enhancement along themargins of the resection cavity.? Compared to the 08/13/2021 examination, the degree of abnormal enhancement along the resection cavity is clearly improved.? Please correlate with interval treatment changes. ? On the recent prior CT dated 10/03/2021, there appears to be abnormally increased enhancement along the posterior aspect of the resection cavity.? However, given this MRI appearance, the CT appearance is now considered to be artifactual.? Will decrease Decadron, to 2 mg q.[address] Garcia further management Will start low-dose Seroquel given behavioral disturbance Discussed with Dr. Roth, patient likely has metabolic encephalopathy related to steroids. He recommended we taper the steroids to the lowest possible Dose if at all possibe We will continue to rule out infection, although there appears to be no evidence of infection at this time Will continue bedtime Seroquel 2. Essential hypertension, chronic * Continue home doses of Nifedipine 60 mg daily and hydrochlorothiazide 25 mg p.o. daily3. Hyperlipidemia, chronic * Continue home dose of atorvastatin 10 mg p.o. at bedtime4. BPH, chronic * Continue home dose of tamsulosin 0.4 mg p.o. in the evening * Augustin was placed due to urinary retention and had urine output of 500 mls when scanned and augustin placed * Patient removed his Augustin catheter, will leave this out .5. History of gout, chronic * Continue home dose of allopurinol 300 mg p.o. daily6. History of dry eye, chronic * Continue home dose of Restasis 0.4 mg L b.i.d. Home when he is no longer confused and can be managed by his Time Spent With Patient Critical Care time: I spent a total of [] minutes of critical care time on this patient's care today; this time is exclusive of procedural time. Quality VTE Deep Vein Thrombosis/Pulmonary Embolism Present on Admission: No
[2021-10-05] MEDS: LORazepam 2 MG/ML INJ 1 MG IV (17:14)
[2021-10-05] MEDS: HALOPERIDOL 5 MG/ML VIAL 2 MG IV (17:15)
[2021-10-05] MEDS: DICLOFENAC 1% GEL 100 GM 1 APPLIC TOP ×2 (17:30→20:34)
[2021-10-05] MEDS: ATORVASTATIN 20 MG TABLET 10 MG PO (20:27)
[2021-10-05] MEDS: QUETIAPINE 25 MG TABLET PO (20:34)
[2021-10-06] VITALS (10 sets, daily range): BP systolic 122–144; BP diastolic 62–80; PULSE 54–93; RESP 15–18; TEMP 36.2–36.9; O2SAT 94–97
[2021-10-06] MEDS: DEXAMETHASONE 4 MG/ML VIAL 2 MG IV ×3 (00:01→11:52)
[2021-10-06] MEDS: HALOPERIDOL 5 MG/ML VIAL 2 MG IV (00:03)
[2021-10-06 05:52] LABS: BUN Creatinine Ratio 31.3 (6-22); Blood Urea Nitrogen 21 mg/dL (9-20); Calcium 8.7 mg/dL (8.4-10.2); Carbon Dioxide 27 mmol/L (22-32); Chloride 108 mmol/L (98-107); Estimated Glomerular Filt Rate > 60 mL/min (>60); Glucose 103 mg/dL (80-110); HEMOLYSIS 22 (0-50); Magnesium 2.3 mg/dL (1.6-2.3); Potassium 3.8 mmol/L (3.4-5.1); Sodium 139 mmol/L (137-145)
[2021-10-06 05:54] LABS: Add Manual Diff / Slide Review NO; Basophils Absolute Auto 0 /uL (0-100); Basophils Percent Auto 0.2 % (0-2); Eosinophils Absolute Auto 0 /uL (0-450); Hematocrit 47.2 % (41-53); Hemoglobin 16.1 g/dL (13.5-17.5); Lymphocytes Absolute Auto 400 /uL (1100-4500); Lymphocytes Percent Auto 4.8 % (25-40); Mean Corpuscular HGB Conc 34.2 % (30-36); Mean Corpuscular Hemoglobin 34.7 PG (26-34); Mean Corpuscular Volume 101.7 fL (80-100); Monocytes Absolute Auto 400 /uL (0-900); Monocytes Percent Auto 4.6 % (3-14); Neutrophils Absolute Auto 8200 /uL (1500-7000); Neutrophils Percent Auto 90.4 % (50-75); Platelet Count 138 X10^3/uL (150-400); Red Blood Cell Count 4.64 X10^6/uL (4.5-5.9); Red Cell Distribution Width 13.8 % (11.6-14.8)
[2021-10-06] MEDS: MAGNESIUM CITRATE 150 MG 1 EACH PO (09:02)
[2021-10-06] MEDS: TAMSULOSIN 0.4 MG CAPSULE PO (09:02)
[2021-10-06] MEDS: allopurinoL 300 MG TABLET PO (09:03)
[2021-10-06] MEDS: NIFEdipine 30 MG TAB ER 60 MG PO (09:03)
[2021-10-06] MEDS: PANTOPRAZOLE DR 20 MG TABLET PO (09:04)
[2021-10-06] MEDS: ASPIRIN EC 81 MG TABLET PO (09:04)
[2021-10-06] MEDS: DICLOFENAC 1% GEL 100 GM 1 APPLIC TOP ×2 (11:53→20:02)
--- NOTE | 2021-10-06 15:37 | P.PN_ITS ---
Subjective Subjective Date Patient Seen: 10/06/21 Interval history: 76 y/o male with a glioblastoma admitted for hallucinations, delerium, metabolic encephalopathy most likely related to steroids and his underlying malignancy. MRI of the brain showed no progression of the malignancy. Patient was started on Seroquel yesterday. He is quite sedated today, but no further aggressive agitated behavior. His is at the bedside and I have discussed his care with her. Exam Vital Signs (past 8 hours): - 10/06/21 09:00 10/06/21 09:20 10/06/21 11:59 Temperature 97.5 F L 98.5 F Pulse Rate 60 60 Respiratory Rate 18 15 Blood Pressure 134/66 138/73 Pulse Oximetry 97 97 95 Oxygen Delivery Method Room Air Oxygen Flow Rate 0 Narrative Exam Narrative: Pleasant gentleman confused but calmer today somewhat sleepy but easily arousable Resp Other: Lungs clear to auscultation Cardio Other: Cardiac exam: Regular rate and rhythm normal S1-S2 GI Other: Abdomen: Soft and nontender Extrem Other: Extremity no edema Objective Labs Result Diagrams: 10/06/21 05:30 10/06/21 05:30 Labs: Laboratory Results - last 24 hr 10/06/21 10/06/21 05:30 05:30 WBC 9.0 RBC 4.64 Hgb 16.1 Hct 47.2 MCV 101.7 H MCH 34.7 H MCHC 34.2 RDW 13.8 Plt Count 138 L Neut % (Auto) 90.4 H Lymph % (Auto) 4.8 L [place] % (Auto) 4.6 Eos % (Auto) 0.0 L Baso % (Auto) 0.2 Neut # (Auto) 8200 H Lymph # (Auto) 400 L [place] # (Auto) 400 Eos # (Auto) 0 Baso # (Auto) 0 Sodium 139 Potassium 3.8 Chloride 108 H Carbon Dioxide 27 BUN 21 H Creatinine 0.67 Estimated GFR > 60 BUN/Creatinine Ratio 31.3 H Glucose 103 Calcium 8.7 Magnesium 2.3 PFSH Medical History Actinic keratosis Aortic ectasia, 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 Father No problems noted. Mother No problems noted. Brother No problems noted. Social History marital status: household members: spouse education level: college Smoking Status: Never smoker second hand exposure: No alcohol intake: current substance use type: does not use Assessment & Plan Assessment & Plan narrative: Encephalopathy, likely secondary to steroids * Recommended by neuro surgery to ED provider is to have the patient undergo MRI imaging with and without in the morning to ascertain/confirmed if the glioblastoma site has increased in size. * He was started on a loading dose of IV Decadron 10 mg and will receive IV Decadron 4 mg q.6 hours starting at 11:00 p.m. today. * He completed a cycle of tomozolomide on September 25, will resume 3 weeks October 11? * MRI of brain today * :? Right temporal lobe resection cavity, with mild enhancement along themargins of the resection cavity.? Compared to the 08/13/2021 examination, the degree ofabnormal enhancement along the resection cavity is clearly improved.? Please correlate with interval treatment changes. ? On the recent prior CT dated 10/03/2021, there appears to be abnormally increased enhancement along the posterior aspect of the resection cavity.? However, given this MRI appearance, the CT appearance is now considered to be artifactual.? Will decrease Decadron, to 2 mg q.[address] Garcia further management Will start low-dose Seroquel given behavioral disturbance, patient is quite sedated from the Seroquel will decrease to 12.5 at HS Will continue steroid taper Discussed with Dr. Roth, patient likely has metabolic encephalopathy related to steroids.? He recommended we taper the steroids to the lowest possible Dose if at all possibe We will continue to rule out infection, although there appears to be no evidence of infection at this time Will continue bedtime Seroquel, new dose 12.5 at night 2. Essential hypertension, chronic * Continue home doses of Nifedipine 60 mg daily and hydrochlorothiazide 25 mg p.o. daily3. Hyperlipidemia, chronic * Continue home dose of atorvastatin 10 mg p.o. at bedtime 4. BPH, chronic * Continue home dose of tamsulosin 0.4 mg p.o. in the evening * Augustin was placed due to urinary retention and had urine output of 500 mls when scanned and augustin placed * Patient removed his Augustin catheter, will leave this out .5. History of gout, chronic * Continue home dose of allopurinol 300 mg p.o. daily 6. History of dry eye, chronic * Continue home dose of Restasis 0.4 mg L b.i.d Home when he is no longer confused and can be managed by his Time Spent With Patient Time Spent With Patient Critical Care time: I spent a total of [] minutes of critical care time on this patient's care toda y; this time is exclusive of procedural time. Quality VTE Deep Vein Thrombosis/Pulmonary Embolism Present on Admission: No
[2021-10-06] MEDS: dexAMETHasone 4 MG TABLET 2 MG PO (17:58)
[2021-10-06] MEDS: ACETAMINOPHEN 325 MG TABLET 650 MG PO (19:02)
[2021-10-06] MEDS: ATORVASTATIN 20 MG TABLET 10 MG PO (20:01)
[2021-10-06] MEDS: QUETIAPINE 25 MG TABLET 12.5 MG PO (20:02)
[2021-10-07] VITALS (8 sets, daily range): BP systolic 118–141; BP diastolic 64–80; PULSE 53–88; RESP 16–20; TEMP 36.1–37.1; O2SAT 94–98
[2021-10-07] MEDS: TAMSULOSIN 0.4 MG CAPSULE PO (08:03)
[2021-10-07] MEDS: PANTOPRAZOLE DR 20 MG TABLET PO (08:03)
[2021-10-07] MEDS: dexAMETHasone 4 MG TABLET 2 MG PO ×2 (08:03→17:34)
[2021-10-07] MEDS: NIFEdipine 30 MG TAB ER 60 MG PO (08:03)
[2021-10-07] MEDS: ENOXAPARIN 40 MG/0.4 ML SYRINGE SUBCUT (08:04)
[2021-10-07] MEDS: allopurinoL 300 MG TABLET PO (08:04)
[2021-10-07] MEDS: ASPIRIN EC 81 MG TABLET PO (08:04)
[2021-10-07] MEDS: MAGNESIUM CITRATE 150 MG 1 EACH PO (08:05)
--- NOTE | 2021-10-07 13:45 | OT.IP.EVAL ---
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) Bladder stones (Unknown) BPH (benign prostatic hyperplasia) (Unknown) Chickenpox (Unknown) Chronic left shoulder pain Chronic right shoulder pain (04/19/17) GERD (gastroesophageal reflux disease) (Unknown) Glioblastoma (05/2021) Gout (Unknown) Hearing loss (Unknown) Hx of cystoscopy (01/2015) Hyperlipemia (Unknown) Hypertension (Unknown) Knee pain (Unknown) Left foot pain Measles (Unknown) Neck strain Shoulder pain (Unknown) Tinea pedis Surgical History (Last Reviewed 10/03/21 @ 22:20 by FERNANDEZ Vieyra) Hx of cystoscopy (01/2015) Occupational Therapy Inpatient Evaluation/Re-Eval M1 PT/OT-IP Prior Functional Status Start: 10/07/21 15:08 Freq: NEEDED Status: Active Protocol: Document 10/07/21 15:08 AB (Rec: 10/07/21 15:29 [id number]) Medical Review Prior Functional Status Medical History Reviewed Yes Communication able to answer questions but with confusion and needs cues with all tasks Mobility and Gait per spouse: pt is modified independent with all mobilities and ambulation using SPC ; spouse assists pt with LB dressing and occasionally toileting and shower needs Social History Household Members spouse Living Arrangements House Number of Floors (Floors) Two Floors Number of Stairs To Enter/Railing? 2 platform steps to enter the house 16 steps L rail ascending to 2nd level bedroom: pt uses SPC on R Home Environment Standard Height Toilet Home Equipment Four Wheel Walker,Straight Cane,Hand Held Shower,Grab Bars In Shower M2 OT-IP Current Condition Start: 10/07/21 17:52 Freq: Status: Active Protocol: Document 10/07/21 13:10 [facility] (Rec: 10/07/21 18:12 [facility] [id number]) Occupational Therapy Current Condition Current Condition Evaluation Date 10/07/21 Treatment Diagnosis Encephalopathy, decreased mobility M3 OT- IP Subjective and Pain Start: 10/07/21 17:52 Freq: Status: Active Protocol: Document 10/07/21 13:10 [facility] (Rec: 10/07/21 18:12 [facility] [id number]) OT- Subjective Occupational Therapy Visit Type Type Initial Evaluation Visit Start Time 13:10 Visit Stop Time 13:45 Total Visit Minutes 35 Occupational Therapy Visit Comments Patient Comments Pt agreed to get up as having to use the bathroom. Patient/Caregiver Goals TO get stronger. OT Pain Assessment Pain When Pain Assessed During Mobility Pain Present Pain Present Pain Reported Location Right Shoulder Intensity 5 Scale Used Numeric (0 - 10) M4 OT- IP ADL's Start: 10/07/21 17:52 Freq: Status: Active Protocol: Document 10/07/21 13:10 [facility] (Rec: 10/07/21 18:12 [facility] [id number]) OT [id number] Comments OT Self-Feeding Comments NOt at meal time OT ADL-Grooming General Evaluation Grooming Ability Standby Assistance Comments OT Grooming Comments Pt able to wash his hands at the sink. OT ADL-Oral Care Comments Oral Care Comments Not performed. OT ADL-Dressing Comments OT Dressing Comments Not performed. OT ADL-Toileting General Evaluation Toileting Ability Standby Assistance Comments OT Toileting Comments After MAX vc for safety and FWW use , able to get pt to sit on the toilet in order to urinate. OT ADL-Bathing Comments OT Bathing Comments Not performed. M5 OT- IP IADL's Start: 10/07/21 17:52 Freq: Status: Active Protocol: Document 10/07/21 13:10 [facility] (Rec: 10/07/21 18:12 [facility] [id number]) OT-Instrumental Activities of Daily Living Home Safety Awareness Awareness of Need for Assistance at Home Decreased Awareness Ability to Problem Solve Emergency Unable to Problem Solve Situations Medication Management Medication Management Caregiver Administers Money Management Money Management Caregiver Provides Assistance Meal Preparation Meal Preparation Caregiver Provides Assist Radio Time Buyer Radio Time Buyer Caregiver Provides Assist M6 OT- IP Functional Cognition Start: 10/07/21 17:52 Freq: Status: Active Protocol: Document 10/07/21 13:10 [facility] (Rec: 10/07/21 18:12 [facility] [id number]) Cognitive Factors Limiting Selfcare Function Cognitive Ability Level of Alertness Confusional State Patient Orientation Name Attention Span Ability Capable of Focused Attention, Unable to Focus Ability to Follow Commands Able to Follow One Step Commands with Increased Time, Able to Follow One Step Commands with Repetition Memory Description Short Term Impaired Cognitive Comments Cognitive Assessment Comments Pt having trouble to follow commands and needing simple concrete commands. Pt needing cues to hold to the FWW at all time and to keep the FWW in front of him. At times pt pushes the FWW away and tries to hold to surfaces to walk. Pt having difficulty to get his words out at times. Pt will say one thing and do another. Pt states sits to urinate but then proceeding to stand to try to go. Explained to pt it is much safer to sit to urinate at this time due to his decreased balance, pt agreed. OT- Vision and Hearing OT- Vision Assessment Visual Acuity Glasses All The Time Vision Assessment Comments TO further assess tomorrow. M7 OT- IP Mobility and Balance Start: 10/07/21 17:52 Freq: Status: Active Protocol: Document 10/07/21 13:10 [facility] (Rec: 10/07/21 18:12 [facility] [id number]) OT-Transfer Assessment Sit to and From Stand Sit to and from Stand Minimal Assistance Transfers Transfer Ability Minimal Assistance Technique Transfer Destination Chair,Toilet Devices Transfer Assistive Devices Gait Belt,Front Wheeled Walker Comments Mobility Comments Pt very ataxic with his gait and needing assist to keep the FWW close. OT- Balance Assessment Sitting Balance and Reactions Static Sitting Balance Ability Good Dynamic Sitting Balance Ability Fair Standing Balance and Reactions Static Standing Balance Ability Fair Dynamic Standing Balance Ability Poor M8 OT- IP Objective Assessments Start: 10/07/21 17:52 Freq: Status: Active Protocol: Document 10/07/21 13:10 [facility] (Rec: 10/07/21 18:12 [facility] [id number]) OT Gross Range of Motion Upper Extremity Range of Motion Assessment Right Impaired OT Strength Comments Strength Comments Not formally tested at least 3 -/5 for BUE. M9 OT- IP Assessment and Plan Start: 10/07/21 17:52 Freq: Status: Active Protocol: Document 10/07/21 13:10 [facility] (Rec: 10/07/21 18:12 [facility] [id number]) OT Summary Assessment and Plan Potential Rehabilitation Potential Fair Analytic Complexity at Evaluation Moderate Summary OT Impairments Pain,Strength,Balance, Coordination,Functional Cognition,Functional Mobility, Self-Feeding,Grooming,Dressing ,Toileting,Bathing,Toilet Transfers,Shower Transfers, Activity Tolerance Progress Towards Goals Slow Progress due to Pain,Slow Progress due to Medical Issues,Slow Progress due to Activity Tolerance,Slow Progress due to Cognition Assessment Summary Pt MOD complexity and main barrier are pain, confusion, balance, and very unsteady on his feet at this time. Pt needing JLUIS for mobility needs and MAX A vc for safety and pt is also impulsive. At this time would be best for pt to do skilled rehab to get stronger and steadier on his feet and be more independent with his ADl's prior to going home. Suggest skilled rehab versus if pt progressing well and his able to care for the pt possibly home with home health. Goals Grooming Goal Standby Assistance Dressing Goal Minimal Assistance Toileting Goal Minimal Assistance Bathing Goal Moderate Assistance Toilet Transfer Goal Standby Assistance Shower Transfer Goal Standby Assistance Patient/Caregiver Education Goal Caregiver Independent Assisting Patient Days to Meet Goals 15 Frequency of Treatment Frequency Of Treatment Once a Day Treatment Plan OT Treatment Plan ADL Training,Functional Cognition Training,Functional Mobility,Patient/Family Education,Discharge Planning Other Treatment Recommendations and Next shower Treatment Focus Discharge Recommendations OT Discharge Recommendations SNF Rehab Other Discharge Recommendations pending medical progress and caregiver training home with 09/01 assist and home health Transportation Needs at Discharge Wheelchair/Cabulance
--- NOTE | 2021-10-07 14:15 | PT.IIE ---
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) Bladder stones (Unknown) BPH (benign prostatic hyperplasia) (Unknown) Chickenpox (Unknown) Chronic left shoulder pain Chronic right shoulder pain (04/19/17) GERD (gastroesophageal reflux disease) (Unknown) Glioblastoma (05/2021) Gout (Unknown) Hearing loss (Unknown) Hyperlipemia (Unknown) Hypertension (Unknown) Knee pain (Unknown) Left foot pain Measles (Unknown) Neck strain Shoulder pain (Unknown) Tinea pedis Physical Therapy Inpatient Evaluation/Re-Eval M1 PT/OT-IP Prior Functional Status Start: 10/07/21 15:08 Freq: NEEDED Status: Active Protocol: Document 10/07/21 15:08 AB (Rec: 10/07/21 15:29 AB [id number]) Medical Review Prior Functional Status Medical History Reviewed Yes Communication able to answer questions but with confusion and needs cues with all tasks Mobility and Gait per spouse: pt is modified independent with all mobilities and ambulation using SPC ; spouse assists pt with LB dressing and occasionally toileting and shower needs Social History Household Members spouse Living Arrangements House Number of Floors (Floors) Two Floors Number of Stairs To Enter/Railing? 2 platform steps to enter the house 16 steps L rail ascending to 2nd level bedroom: pt uses SPC on R Home Environment Standard Height Toilet Home Equipment Four Wheel Walker,Straight Cane,Hand Held Shower,Grab Bars In Shower M2 PT-IP Current Condition Start: 10/07/21 15:08 Freq: NEEDED Status: Active Protocol: Document 10/07/21 15:08 AB (Rec: 10/07/21 15:29 AB [email or web address]) Physical Therapy Current Condition Current Condition Evaluation Date 10/07/21 Treatment Diagnosis hallucinations; h/o glioblastoma temporal lobe s/o resection; diff. in walk Onset Date 10/03/21 M3 PT-IP Subjective Start: 10/07/21 15:08 Freq: NEEDED Status: Active Protocol: Document 10/07/21 15:08 AB (Rec: 10/07/21 15:29 AB [email or web address]) Subjective Physical Therapy Visit Type Type Treatment Note Visit Start Time 14:15 Visit Stop Time 14:45 Total Visit Minutes 30 Number of DATA INPUT CLERK Visits 0 Physical Therapy Visit Comments Patient Comments agreeable to do PT Therapy Pain Assessment Pain Present Pain Present Denied Pain M4 PT-IP Mobility and Gait Start: 10/07/21 15:08 Freq: NEEDED Status: Active Protocol: Document 10/07/21 15:08 AB (Rec: 10/07/21 15:29 AB [id number]) PT-Bed Mobility Assessment Supine to Sit Supine to Sit Standby Assistance PT-Transfer Assessment Sit to and From Stand Sit to and from Stand 1 Person Assistance Equipment Transfer Assistive Device Gait Belt,Front Wheeled Walker Orthotic/Prosthetic Devices or Brace: No Transfers Transfer Destination Toilet Transfer Technique ambulated Transfer Ability Level of Assist Minimal Assistance,1 Person Assistance,Use of Upper Extremities Comments Mobility Comments completed supine to sit SBA. able to sit on EOB SBA. pt requested to use the toilet. completed sit to stand min A and ambulated to the toilet using FWW min A. requires max cues for safety and positioning. completed toileting needs min A and max cues. pt ambulated out the toilet cued to use FWW but pt pushed it to the side and ambulated without AD but tends to reach for the wall min A. able to complete handwashing min A for steadiness. pt ambulated more in room without AD 30 ft min A and cues. presents with ataxic wide based gait. pt sat on the chair. completed step transfer chair<>bed min A and cues. pt agreed to stay up on chair. positioned on chair. call light and table placed within reach. Gait Assessment Gait Gait Assistance Required: Minimum Assistance,1 Person Assist Distance (Feet) 30 Able to Maintain Weight Bearing Status Yes During Gait Assistive Devices Assistive Device None,Gait Belt,Front Wheeled Walker Orthotic/Prosthetic Devices or Brace: No Gait Deviations General Gait Pattern Antalgic,Decreased Stride Length,Decreased Feet Clearance,Wide Based Gait Factors Limiting Gait Function Factors Limiting Gait Function Decreased Activity Tolerance, Decreased Strength,Difficulty Following Directions,Poor Balance,Poor Safety Awareness PT-Balance Assessment Sitting Balance and Reactions Static Sitting Balance Ability Good Dynamic Sitting Balance Ability Good Standing Balance and Reactions Static Standing Balance Ability Fair Dynamic Standing Balance Ability Fair Device Used without AD M5 PT-IP Objective Assessments Start: 10/07/21 15:08 Freq: NEEDED Status: Active Protocol: Document 10/07/21 15:08 AB (Rec: 10/07/21 15:29 AB [id number]) Orientation Orientation/Cognition Level of Alertness Confusional State Orientation Name Language Function Ability Hard of Hearing Safety Awareness Decreased Safety Awareness Memory Description Short Term Impaired Strength Lower Extremity Strength Assessment Within Functional Limits Sensation Assessment Sensation Gross Sensation WNL Muscle Tone Muscle Tone WNL Yes M6 PT-IP Treatment Start: 10/07/21 15:08 Freq: NEEDED Status: Active Protocol: Document 10/07/21 15:08 AB (Rec: 10/07/21 15:29 AB [id number]) Physical Therapy Treatment Education Education Provided Safety M7 PT-IP Assessment and Plan Start: 10/07/21 15:08 Freq: NEEDED Status: Active Protocol: Document 10/07/21 15:08 AB (Rec: 10/07/21 15:29 AB [id number]) PT Summary Assessment and Plan Potential Rehabilitation Potential Fair Status of Condition at Evaluation Evolving Summary Impairments Pain,ROM,Strength,Balance, Coordination,Sensation,Tone, Cognition,Bed Mobility, Transfers,Gait,Activity Tolerance Assessment Summary pt requiring min A with mobility but with max cues with all tasks for safety. pt 's spouse is limited with her ability to assist pt. pt will benefit from SNF rehab to improve strength and mobility independence. will continue to assess progress. Goals Bed Mobility Goal Standby Assistance Transfer Goal Standby Assistance,Front Wheeled Walker Gait Goal Standby Assistance,Front Wheel Walker Gait Distance 200 Other Goals improve ambulation using 4WW/ spc/ without AD 250 ft SBA up/down 2 platform steps using 4WW/SPC SBA; up/down 16 steps L rail R SPC SBA Days to Meet Goals 10 Frequency of Treatment Frequency Of Treatment Once a Day Treatment Plan Physical Therapy Treatment Plan Bed Mobility Training,Transfer Training,Gait Training, Therapeutic Exercise,Balance Retraining,Post Op Education, Discharge Planning,Hot or Cold Pack,Neuromuscular Re-ed, Coordination Retraining,Manual Therapy Precautions Other Precautions falls Recommendations To Nursing Amount of Assist Needed 1 Person Assist Discharge Recommendations PT Discharge Recommendations SNF Rehab Equipment Needed for Home Before FWW if pt goes home and not Discharge safe with 4WW/SPC/without AD Transportation Needs at Discharge Wheelchair/Cabulance
--- NOTE | 2021-10-07 15:16 | P.PN_ITS ---
Subjective Subjective Date Patient Seen: 10/07/21 Interval history: 76-year-old male admitted to the hospital for delirium, acute metabolic encephalopathy, likely related to medications for treatment of his glioblastoma multiforme. Patient's steroids have been tapered, his a Seroquel was decreased as well. He returned remains somewhat confused and impulsive. He is unsteady with ambulation. Exam Vital Signs (past 8 hours): - 10/07/21 08:00 10/07/21 09:54 10/07/21 11:00 Temperature 96.9 F L Pulse Rate 73 Respiratory Rate 16 Blood Pressure 141/80 H Pulse Oximetry 95 97 97 10/07/21 12:21 Temperature 97.5 F L Pulse Rate 61 Respiratory Rate 16 Blood Pressure 128/71 Pulse Oximetry 94 Oxygen Delivery Method Room Air Oxygen Flow Rate 0 Narrative Exam Narrative: Pleasant elderly male confused lying in bed Resp Other: Lungs clear to auscultation Cardio Other: Cardiac exam: Regular rate and rhythm normal S1-S2 GI Other: Abdomen: Soft nontender nondistended Extrem Other: Extremity no edema Objective Labs Result Diagrams: 10/06/21 05:30 10/06/21 05:30 [facility] Medical History Actinic keratosis Aortic ectasia, 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 Father No problems noted. Mother No problems noted. Brother No problems noted. Social History marital status: household members: spouse education level: college Smoking Status: Never smoker second hand exposure: No alcohol intake: current substance use type: does not use Assessment & Plan Assessment & Plan narrative: Encephalopathy, likely secondary to steroids * Patient's steroids have been tapered, he is currently on 2 mg twice daily * Will decrease to 2 mg daily in the next 24 hours * Continue low-dose Seroquel of 12.5 at night * Continue PT OT * Patient very likely will need custodial it is unlikely that his will be able to care for him at home 2. Essential hypertension, chronic * Continue home doses of Nifedipine 60 mg daily and hydrochlorothiazide 25 mg p.o. daily 3. Hyperlipidemia, chronic * Continue home dose of atorvastatin 10 mg p.o. at bedtime 4. BPH, chronic * Continue home dose of tamsulosin 0.4 mg p.o. in the evening * Augustin was placed due to urinary retention and had urine output of 500 mls when scanned and augustin placed * Patient removed his Augustin catheter, will leave this out. 5. History of gout, chronic * Continue home dose of allopurinol 300 mg p.o. daily 6. History of dry eye, chronic * Continue home dose of Restasis 0.4 mg L b.i.d Continue PT OT, will need to decide if he can go home with home health or custodial Time Spent With Patient Critical Care time: I spent a total of [] minutes of critical care time on this patient's care today; this time is exclusive of procedural time. Quality VTE Deep Vein Thrombosis/Pulmonary Embolism Present on Admission: No
[2021-10-07] MEDS: QUETIAPINE 25 MG TABLET 12.5 MG PO (20:08)
[2021-10-07] MEDS: ATORVASTATIN 20 MG TABLET 10 MG PO (20:08)
[2021-10-07] MEDS: DICLOFENAC 1% GEL 100 GM 1 APPLIC TOP (20:09)
[2021-10-08] VITALS (9 sets, daily range): BP systolic 131–156; BP diastolic 58–75; PULSE 58–65; RESP 15–18; TEMP 36–36.7; O2SAT 95–98
--- NOTE | 2021-10-08 03:21 | PC.NURSE ---
Bladder scanned patient after one of his several trips to the bathroom with roughly 25mL output. 5mL post-void residual. Patient continues to be extremely impulsive and confused.
[2021-10-08 06:14] LABS: BUN Creatinine Ratio 37.7 (6-22); Blood Urea Nitrogen 26 mg/dL (9-20); Calcium 8.5 mg/dL (8.4-10.2); Carbon Dioxide 26 mmol/L (22-32); Chloride 107 mmol/L (98-107); Estimated Glomerular Filt Rate > 60 mL/min (>60); Glucose 100 mg/dL (80-110); HEMOLYSIS 27 (0-50); Sodium 137 mmol/L (137-145)
[2021-10-08 06:21] LABS: Add Manual Diff / Slide Review NO; Basophils Absolute Auto 0 /uL (0-100); Basophils Percent Auto 0.2 % (0-2); Eosinophils Absolute Auto 0 /uL (0-450); Eosinophils Percent Auto 0.4 % (2-4); Hematocrit 47.4 % (41-53); Hemoglobin 16.4 g/dL (13.5-17.5); Lymphocytes Absolute Auto 700 /uL (1100-4500); Lymphocytes Percent Auto 8.3 % (25-40); Mean Corpuscular HGB Conc 34.5 % (30-36); Mean Corpuscular Volume 101.5 fL (80-100); Monocytes Absolute Auto 500 /uL (0-900); Neutrophils Absolute Auto 7000 /uL (1500-7000); Neutrophils Percent Auto 85.1 % (50-75); Platelet Count 147 X10^3/uL (150-400); Red Blood Cell Count 4.67 X10^6/uL (4.5-5.9); Red Cell Distribution Width 14.1 % (11.6-14.8); White Blood Cell Count 8.3 X10^3/uL (4.5-11.0)
[2021-10-08] MEDS: dexAMETHasone 4 MG TABLET 2 MG PO ×2 (09:32→16:18)
[2021-10-08] MEDS: allopurinoL 300 MG TABLET PO (09:32)
[2021-10-08] MEDS: NIFEdipine 30 MG TAB ER 60 MG PO (09:33)
[2021-10-08] MEDS: ASPIRIN EC 81 MG TABLET PO (09:33)
[2021-10-08] MEDS: PANTOPRAZOLE DR 20 MG TABLET PO (09:33)
[2021-10-08] MEDS: TAMSULOSIN 0.4 MG CAPSULE PO (09:33)
[2021-10-08] MEDS: ENOXAPARIN 40 MG/0.4 ML SYRINGE SUBCUT (09:33)
[2021-10-08] MEDS: MAGNESIUM CITRATE 150 MG 1 EACH PO (09:34)
[2021-10-08] MEDS: DICLOFENAC 1% GEL 100 GM 1 APPLIC TOP ×3 (09:41→20:53)
--- NOTE | 2021-10-08 09:48 | OT.IP.TRT ---
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) Occupational Therapy Treatment Note M2 OT-IP Current Condition Start: 10/07/21 17:52 Freq: Status: Active Protocol: Document 10/07/21 13:10 [facility] (Rec: 10/07/21 18:12 [facility] [id number]) Occupational Therapy Current Condition Current Condition Evaluation Date 10/07/21 Treatment Diagnosis Encephalopathy, decreased mobility M3 OT- IP Subjective and Pain Start: 10/07/21 17:52 Freq: Status: Active Protocol: Document 10/08/21 09:49 [facility] (Rec: 10/08/21 10:02 [facility] [id number]) OT- Subjective Occupational Therapy Visit Type Type Treatment Note Visit Start Time 09:15 Visit Stop Time 09:48 Total Visit Minutes 33 Occupational Therapy Visit Comments Patient Comments Pt agreeable to shower and present in the room. Patient/Caregiver Goals TO get stronger. OT Pain Assessment Pain When Pain Assessed During Mobility Pain Present Pain Present Pain Reported Location Right Shoulder Intensity 6 Scale Used Numeric (0 - 10) M4 OT- IP ADL's Start: 10/07/21 17:52 Freq: Status: Active Protocol: Document 10/08/21 09:49 [facility] (Rec: 10/08/21 10:02 [facility] [id number]) OT [id number] Comments OT Self-Feeding Comments NOt at meal time OT ADL-Grooming Comments OT Grooming Comments Not performed OT ADL-Oral Care Comments Oral Care Comments Not performed. OT ADL-Dressing General Eval Upper Body Dressing Ability Minimal Assistance Lower Body Dressing Ability Standby Assistance Comments OT Dressing Comments Yesterday pt was dependent to jah the gown and today pt needing JLUIS for oreintation of the gown and then able to get his arms into the gown. Pt able to slip on and off his slippers on his own. OT ADL-Toileting General Evaluation Toileting Ability Standby Assistance Comments OT Toileting Comments Pt needing MIN visual cue and tactile cues to turn to sit to the toilet. Pt able to wipe on his own. OT ADL-Bathing Bathing Type Bathing Type Shower General Evaluation Bathing Ability Minimal Assistance,Moderate Assistance Areas Needing Assistance Wash/Dry Back,Wash/Dry Lower Extremities Devices Bathing Equipment Shower Chair with Arms,Grab Bars Comments OT Bathing Comments Pt able to wash his head initially and then needing initial cues to remind him what to wash next. At times pt would repeat washing his arms and needing cues to move on to the next body part. Pt able to sequence through task of showering with MOD vc today. M5 OT- IP IADL's Start: 10/07/21 17:52 Freq: Status: Active Protocol: Document 10/07/21 13:10 [facility] (Rec: 10/07/21 18:12 [facility] [id number]) OT-Instrumental Activities of Daily Living Home Safety Awareness Awareness of Need for Assistance at Home Decreased Awareness Ability to Problem Solve Emergency Unable to Problem Solve Situations Medication Management Medication Management Caregiver Administers Money Management Money Management Caregiver Provides Assistance Meal Preparation Meal Preparation Caregiver Provides Assist Worsted Winder Worsted Winder Caregiver Provides Assist M6 OT- IP Functional Cognition Start: 10/07/21 17:52 Freq: Status: Active Protocol: Document 10/08/21 09:49 [facility] (Rec: 10/08/21 10:02 [facility] [id number]) Cognitive Factors Limiting Selfcare Function Cognitive Ability Level of Alertness Alert Patient Orientation Name Attention Span Ability Capable of Focused Attention, Capable of Sustained Attention Ability to Follow Commands Able to Follow One Step Commands with Increased Time, Able to Follow One Step Commands with Repetition Memory Description Short Term Impaired Cognitive Comments Cognitive Assessment Comments Pt able to follow cues today for a shower and needing reminders and cues to remember what to wash next-MOD vc. Much improved from yesterday and able to initiate some task of ADL's today versus yesterday not able to process and follow commands and was very confused. OT- Vision and Hearing OT- Vision Assessment Vision Assessment Comments Not issues noted during shower task. M7 OT- IP Mobility and Balance Start: 10/07/21 17:52 Freq: Status: Active Protocol: Document 10/08/21 09:49 [facility] (Rec: 10/08/21 10:02 [facility] [id number]) OT-Transfer Assessment Sit to and From Stand Sit to and from Stand Contact Guard Assistance Transfers Transfer Ability Standby Assistance,Contact Guard Assistance Technique Transfer Destination Chair,Shower Stall,Toilet Devices Transfer Assistive Devices Gait Belt,Front Wheeled Walker Comments Mobility Comments Pt much steadier on his feet today but needing CGA assist for his balance at times. Pt easily tires and benefited from sitting to shower today. OT- Balance Assessment Sitting Balance and Reactions Static Sitting Balance Ability Good Dynamic Sitting Balance Ability Good Standing Balance and Reactions Static Standing Balance Ability Fair Dynamic Standing Balance Ability Fair M8 OT- IP Objective Assessments Start: 10/07/21 17:52 Freq: Status: Active Protocol: Document 10/07/21 13:10 [facility] (Rec: 10/07/21 18:12 [facility] [id number]) OT Gross Range of Motion Upper Extremity Range of Motion Assessment Right Impaired OT Strength Comments Strength Comments Not formally tested at least 3 -/5 for BUE. M9 OT- IP Assessment and Plan Start: 10/07/21 17:52 Freq: Status: Active Protocol: Document 10/08/21 09:49 [facility] (Rec: 10/08/21 10:02 [facility] [id number]) OT Summary Assessment and Plan Potential Rehabilitation Potential Good Analytic Complexity at Evaluation Moderate Summary OT Impairments Pain,Strength,Balance, Coordination,Functional Cognition,Functional Mobility, Self-Feeding,Grooming,Dressing ,Toileting,Bathing,Toilet Transfers,Shower Transfers, Activity Tolerance Progress Towards Goals Progressing Toward Goals Assessment Summary Pt able to follow commands for a shower today and able to initiate certain steps such as washing his head and remembering to wash his armpit and groin. Pt still needing MODA vc to stay on task and help sequence through the task , but much improved. Pt a bit steadier on his feet but still decreased activity and would benefit from skilled rehab stay . Goals Grooming Goal Independent Dressing Goal Standby Assistance Toileting Goal Standby Assistance Bathing Goal Standby Assistance Toilet Transfer Goal Independent Shower Transfer Goal Independent Days to Meet Goals 10 Frequency of Treatment Frequency Of Treatment Once a Day Treatment Plan OT Treatment Plan ADL Training,Functional Cognition Training,Functional Mobility,Patient/Family Education,Discharge Planning Discharge Recommendations OT Discharge Recommendations SNF Rehab Other Discharge Recommendations pending medical progress and caregiver training home with 09/01 assist and home health Transportation Needs at Discharge Private Vehicle,Wheelchair/ Cabulance
--- NOTE | 2021-10-08 11:40 | PT.IPTN ---
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 in walk Onset Date 10/03/21 M3 PT-IP Subjective Start: 10/07/21 15:08 Freq: NEEDED Status: Active Protocol: Document 10/08/21 11:40 [facility] (Rec: 10/08/21 13:43 AB [id number]) Subjective Physical Therapy Visit Type Type Treatment Note Visit Start Time 11:40 Visit Stop Time 11:55 Total Visit Minutes 15 Number of NEW ACCOUNTS CLERK Visits 0 Physical Therapy Visit Comments Patient Comments agreeable to do PT M4 PT-IP Mobility and Gait Start: 10/07/21 15:08 Freq: NEEDED Status: Active Protocol: Document 10/08/21 11:40 [facility] (Rec: 10/08/21 13:43 [facility] [id number]) PT-Transfer Assessment Sit to and From Stand Sit to and from Stand Contact Guard Assistance,1 Person Assistance,Use of Upper Extremities Equipment Transfer Assistive Device None,Gait Belt,Straight Cane Orthotic/Prosthetic Devices or Brace: No Comments Mobility Comments pt sitting on chair and agreed to do PT. completed sit to stand CGA and ambulated in room using SPC CGA to min A. pt tends to switch SPC from one hand to the othe and reach for the wall/bed frame at the same time. per spouse, pt usually furniture cruise at home but using SPC for outdoor mobility. pt sat on the chair. stated that he is tired and refused to do stairs . stated that he will do it tomorrow. positioned pt on the chair. chair alarm on. call light and table placed within reach. left pt with spousein room. Gait Assessment Gait Gait Assistance Required: Contact Guard Assist,Minimum Assistance,1 Person Assist Distance (Feet) 30 Able to Maintain Weight Bearing Status Yes During Gait Assistive Devices Assistive Device Gait Belt,Straight Cane Orthotic/Prosthetic Devices or Brace: No Gait Deviations General Gait Pattern Decreased Stride Length, Decreased Feet Clearance,Wide Based Gait Factors Limiting Gait Function Factors Limiting Gait Function Decreased Activity Tolerance, Decreased Strength,Difficulty Following Directions,Poor Balance,Poor Safety Awareness M5 PT-IP Objective Assessments Start: 10/07/21 15:08 Freq: NEEDED Status: Active Protocol: Document 10/07/21 15:08 [facility] (Rec: 10/07/21 15:29 [facility] [id number]) Orientation Orientation/Cognition Level of Alertness Confusional State Orientation Name Language Function Ability Hard of Hearing Safety Awareness Decreased Safety Awareness Memory Description Short Term Impaired Strength Lower Extremity Strength Assessment Within Functional Limits Sensation Assessment Sensation Gross Sensation WNL Muscle Tone Muscle Tone WNL Yes M6 PT-IP Treatment Start: 10/07/21 15:08 Freq: NEEDED Status: Active Protocol: Document 10/08/21 11:40 [facility] (Rec: 10/08/21 13:43 AB [id number]) Physical Therapy Treatment Education Education Provided Safety M7 PT-IP Assessment and Plan Start: 10/07/21 15:08 Freq: NEEDED Status: Active Protocol: Document 10/08/21 11:40 [facility] (Rec: 10/08/21 13:43 AB [id number]) PT Summary Assessment and Plan Potential Rehabilitation Potential Fair Summary Impairments Pain,ROM,Strength,Balance, Coordination,Sensation,Tone, Cognition,Bed Mobility, Transfers,Gait,Activity Tolerance Progress Towards Goals Slow Progress due to Medical Issues,Slow Progress due to Activity Tolerance Assessment Summary pt requiring CGA to min A with ambulation using SPC and max cues for safety but continues to have decrease activity tolerance affecting mobility independence. will conduct caregiver training when appropriate. will continue to assess progress. Goals Bed Mobility Goal Standby Assistance Transfer Goal Standby Assistance,Front Wheeled Walker Gait Goal Standby Assistance,Front Wheel Walker Gait Distance 200 Other Goals improve ambulation using 4WW/ spc/ without AD 250 ft SBA up/down 2 platform steps using 4WW/SPC SBA; up/down 16 steps L rail R SPC SBA Days to Meet Goals 10 Frequency of Treatment Frequency Of Treatment Once a Day Treatment Plan Physical Therapy Treatment Plan Bed Mobility Training,Transfer Training,Gait Training, Therapeutic Exercise,Balance Retraining,Post Op Education, Discharge Planning,Hot or Cold Pack,Neuromuscular Re-ed, Coordination Retraining,Manual Therapy Precautions Other Precautions falls Recommendations To Nursing Amount of Assist Needed 1 Person Assist Discharge Recommendations PT Discharge Recommendations Home with 09/01 Assist Available,Home Health,SNF Rehab,Home vs SNF Equipment Needed for Home Before FWW if pt goes home and not Discharge safe with 4WW/SPC/without AD Transportation Needs at Discharge Wheelchair/Cabulance
--- NOTE | 2021-10-08 12:54 | CM.DPC ---
Addendum entered by Lucy Lisa R.N. 10/08/21 15:14: Viky at [facility] is reviewing. Sent referral also over to [facility], [facility], and [facility]. Addendum entered by Lucy Lisa R.N. 10/08/21 14:45: Dr. Rizvi came by the care management office and indicated, patient most likely will need fci, and is in agreement. Earlier, spouse had seemed that she wanted patient to go home. Let him know that this DC Barrel Waterer will consult with spouse again. Went to see spouse. Asked her about home versus skilled, for she initially was open to patient going home and resuming [facility]. Spouse indicated, the doctors seem to think that he needs fci, since they can work with him every day. Gave her the Medicare Choice list for her to review, and let her know eliceo this rehabilitation caseworker will start sending out referrals. Encouraged her to pick a few facilities. She is hopeful for [facility] since it's closer. Let her know that the barrier may be his chemo meds, but will have to see. Patient's mentation has improved. Updated Viky at [facility], she will review. Will send to [facility] and [facility] as well. Original Note: DCP Cont: Met with patient and spouse, Jenn. Patient was sitting up in his chair having breakfast. Had discussed home health, and confirmed with spouse that patient is currently under [facility]. Confirmed with Lisa at [facility], that he is currently getting P.T, and speech. Spouse mentioned, possibility of getting [employer], Nursing may also be beneficial. Will ensure that resumption orders are sent to [facility] upon discharge, and will add [employer] and nursing. Lisa indicated, they hired a new nurse, and is currently now doing intakes for faster starts of cares. Spouse and patient want home as preference with their [facility]. Confirmed with spouse that patient is getting oral chemo meds, will alternate, times. P: DCP to continue to follow. Plan at this time his home with the resumption of [facility] P.T, and speech. Will then add nursing and [employer]. Lucy Lisa RN/Facilities Manager
[2021-10-08] MEDS: ACETAMINOPHEN 325 MG TABLET 650 MG PO (16:23)
--- NOTE | 2021-10-08 17:47 | PM.PN.1 ---
Subjective Subjective Date Patient Seen: 10/08/21 Time Patient Seen: 17:47 Interval history: 76-year-old male admitted to the hospital for delirium, acute metabolic encephalopathy, likely related to medications for treatment of his glioblastoma multiforme.? Patient's steroids have been tapered, his a Seroquel was decreased as well.? He returned remains somewhat confused and impulsive.? He is unsteady with ambulation. He is agreeable with spouse today for rehab but placement may be difficult. Exam Vital Signs (past 8 hours): - 10/08/21 12:00 Temperature 97.2 F L Pulse Rate 65 Respiratory Rate 15 Blood Pressure 145/70 H Pulse Oximetry 96 Oxygen Delivery Method Room Air Oxygen Flow Rate 0 Narrative Exam Narrative: Pleasant elderly male confused lying in bed Resp Other: Lungs clear to auscultation Cardio Other: Cardiac exam: Regular rate and rhythm normal S1-S2 GI Other: Abdomen:? Soft nontender nondistended Extrem Other: Extremity no edema Objective Labs Result Diagrams: 10/08/21 05:46 10/08/21 05:46 Labs: Laboratory Results - last 24 hr 10/08/21 10/08/21 05:46 05:46 WBC 8.3 RBC 4.67 Hgb 16.4 Hct 47.4 MCV 101.5 H MCH 35.0 H MCHC 34.5 RDW 14.1 Plt Count 147 L Neut % (Auto) 85.1 H Lymph % (Auto) 8.3 L [place] % (Auto) 6.0 Eos % (Auto) 0.4 L Baso % (Auto) 0.2 Neut # (Auto) 7000 Lymph # (Auto) 700 L [place] # (Auto) 500 Eos # (Auto) 0 Baso # (Auto) 0 Sodium 137 Potassium 4.0 Chloride 107 Carbon Dioxide 26 BUN 26 H Creatinine 0.69 Estimated GFR > 60 BUN/Creatinine Ratio 37.7 H Glucose 100 Calcium 8.5 PFSH Medical History Actinic keratosis Aortic ectasia, 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 Father No problems noted. Mother No problems noted. Brother No problems noted. Social History marital status: household members: spouse education level: college Smoking Status: Never smoker second hand exposure: No alcohol intake: current substance use type: does not use Assessment & Plan Assessment & Plan narrative: 1. Encephalopathy, likely secondary to steroids, improving -Patient's steroids have been tapered, he is currently on 2 mg twice daily -Will decrease to 2 mg daily today -Continue low-dose Seroquel of 12.5 at night -Continue PT OT -Patient very likely will need custodial it is unlikely that his will be able to care for him at home 2. Essential hypertension, chronic -Continue home doses of Nifedipine 60 mg daily and hydrochlorothiazide 25 mg p.o. daily 3. Hyperlipidemia, chronic -Continue home dose of atorvastatin 10 mg p.o. at bedtime 4. BPH, chronic -Continue home dose of tamsulosin 0.4 mg p.o. in the evening -Augustin was placed due to urinary retention and had urine output of 500 mls when scanned and augustin placed -Patient removed his Augustin catheter, will leave this out. 5. History of gout, chronic -Continue home dose of allopurinol 300 mg p.o. daily 6. History of dry eye, chronic -Continue home dose of Restasis 0.4 mg L b.i.d Continue PT OT, will need to decide if he can go home with home health or custodial Time Spent With Patient Critical Care time: I spent a total of [] minutes of critical care time on this patient's care today; this time is exclusive of procedural time. Quality VTE Deep Vein Thrombosis/Pulmonary Embolism Present on Admission: No
[2021-10-08] MEDS: ATORVASTATIN 20 MG TABLET 10 MG PO (20:52)
[2021-10-08] MEDS: QUETIAPINE 25 MG TABLET 12.5 MG PO (20:52)
[2021-10-09] VITALS (9 sets, daily range): BP systolic 138–170; BP diastolic 51–80; PULSE 54–79; RESP 15–19; TEMP 35.8–36.1; O2SAT 96–99
--- NOTE | 2021-10-09 07:44 | CM.DPC ---
Addendum entered by Lucy Lisa R.N. 10/09/21 12:49: Viky from [facility] called back and declined patient, due to needing more monitoring, do not have staffing for this. Spent some time with patient's spouse, Jenn. She understands some of the barriers of usp facilities, such as staffing. She is prepared to take him home if needed, but is hoping that he can be less confused. She does have a sister that may be staying with them, she is from [facility]. Asked her if she and patient have finances for private caregivers. Spouse indicated, they do have finances, and she is interested in agencies that do home care. Brought her the [employer] Book, and showed her the patient with the agencies. Brought her in a business card, [employer], which is based off of [employer] [place] in [facility]. Let her know that they do have soon availabilites. She appreciates the information. Patient will also resume [facility], and will add [employer], and nursing, along with what he has been getting, P.T, and speech. Addendum entered by Lucy Lisa R.N. 10/09/21 11:15: [facility] can't accept patient, so he most likely will need to go home and resume [facility]. Will update spouse. Original Note: DCP Cont: Josephine at [facility] left a message denying patient due to chemo meds. Brenda from [facility] left a message denying patient due to cognition and behaviors. Have not yet heard from [facility]. P: DCP to follow up with [facility], patient may need to go home with home health if unable to secure a usp facility. Lucy Lisa, MESSI/Director Of Aviation
[2021-10-09] MEDS: TAMSULOSIN 0.4 MG CAPSULE PO (08:36)
[2021-10-09] MEDS: dexAMETHasone 4 MG TABLET 2 MG PO (08:36)
[2021-10-09] MEDS: ASPIRIN EC 81 MG TABLET PO (08:36)
[2021-10-09] MEDS: DICLOFENAC 1% GEL 100 GM 1 APPLIC TOP ×3 (08:37→20:47)
[2021-10-09] MEDS: MAGNESIUM CITRATE 150 MG 1 EACH PO (08:37)
[2021-10-09] MEDS: PANTOPRAZOLE DR 20 MG TABLET PO (08:38)
[2021-10-09] MEDS: ENOXAPARIN 40 MG/0.4 ML SYRINGE SUBCUT (08:38)
[2021-10-09] MEDS: allopurinoL 300 MG TABLET PO (08:38)
[2021-10-09] MEDS: NIFEdipine 30 MG TAB ER 60 MG PO (08:38)
--- NOTE | 2021-10-09 10:53 | PT.IPTN ---
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 in walk Onset Date 10/03/21 M3 PT-IP Subjective Start: 10/07/21 15:08 Freq: NEEDED Status: Active Protocol: Document 10/09/21 10:34 KS (Rec: 10/09/21 12:58 KS [id number]) Subjective Physical Therapy Visit Type Type Treatment Note Visit Start Time 10:34 Visit Stop Time 10:53 Total Visit Minutes 19 Notes Pts present during treatment. Number of TRANSITIONAL CARE NURSE Visits 1 Physical Therapy Visit Comments Patient Comments agreeable to do PT M4 PT-IP Mobility and Gait Start: 10/07/21 15:08 Freq: NEEDED Status: Active Protocol: Document 10/09/21 10:34 KS (Rec: 10/09/21 12:58 KS [id number]) PT-Transfer Assessment Sit to and From Stand Sit to and from Stand Contact Guard Assistance,1 Person Assistance,Use of Upper Extremities Equipment Transfer Assistive Device Gait Belt,Straight Cane Orthotic/Prosthetic Devices or Brace: No Transfers Transfer Destination Chair Transfer Technique ambulated w/ SPC Transfer Ability Level of Assist Contact Guard Assistance,1 Person Assistance,Use of Upper Extremities Comments Mobility Comments Pt in chair upon arrival w/ in room. Pt agreeable to ambulation. CGA and cues for hand placement for sit<>stand w/ SPC. Pt then ambulated ~80 ft around room slowly w/ shuffling gait but no LOB w/ SPC CGA. Pt w/ mildly labored breathing reporting fatigue and sat back down in chair. O2 97% on RA. He then completed 1x10 bilateral ankle pumps, quad sets, glute sets, and seated marching. Pt left in chair w/ alarm on and all needs in reach. Gait Assessment Gait Gait Assistance Required: Contact Guard Assist,1 Person Assist Distance (Feet) 80 Able to Maintain Weight Bearing Status Yes During Gait Assistive Devices Assistive Device Gait Belt,Straight Cane Orthotic/Prosthetic Devices or Brace: No Gait Deviations General Gait Pattern Decreased Stride Length, Decreased Feet Clearance,Wide Based Gait Factors Limiting Gait Function Factors Limiting Gait Function Decreased Activity Tolerance, Decreased Strength,Difficulty Following Directions,Poor Balance,Poor Safety Awareness Comments Gait Comments Pt able to ambulate ~80 ft w/ SPC CGA. He occasionally switches SPC to L hand but primarily carries in R. No LOB , but decreased stride and minimal ground clearance. Stair Climbing Assessment Comments Stair Climbing Comments Did not assess today - per rounds, trying for placement at SNF. Now looking like that may not happen and pt may need home w/ HH and increased caregivers. Pts no longer present to perform caregiver and stair training today. PT-Balance Assessment Sitting Balance and Reactions Static Sitting Balance Ability Good Dynamic Sitting Balance Ability Good Standing Balance and Reactions Static Standing Balance Ability Fair Dynamic Standing Balance Ability Fair Device Used SPC M5 PT-IP Objective Assessments Start: 10/07/21 15:08 Freq: NEEDED Status: Active Protocol: Document 10/07/21 15:08 AB (Rec: 10/07/21 15:29 AB [id number]) Orientation Orientation/Cognition Level of Alertness Confusional State Orientation Name Language Function Ability Hard of Hearing Safety Awareness Decreased Safety Awareness Memory Description Short Term Impaired Strength Lower Extremity Strength Assessment Within Functional Limits Sensation Assessment Sensation Gross Sensation WNL Muscle Tone Muscle Tone WNL Yes M6 PT-IP Treatment Start: 10/07/21 15:08 Freq: NEEDED Status: Active Protocol: Document 10/09/21 10:34 KS (Rec: 10/09/21 12:58 KS [id number]) Physical Therapy Treatment Exercises Exercises Ankle Pumps,Gluteal Sets,Quad Sets Education Education Provided Safety Other Treatments Other Treatment Performed Seated marching M7 PT-IP Assessment and Plan Start: 10/07/21 15:08 Freq: NEEDED Status: Active Protocol: Document 10/09/21 10:34 KS (Rec: 10/09/21 12:58 KS [id number]) PT Summary Assessment and Plan Potential Rehabilitation Potential Fair Summary Impairments Pain,ROM,Strength,Balance, Coordination,Sensation,Tone, Cognition,Bed Mobility, Transfers,Gait,Activity Tolerance Progress Towards Goals Slow Progress due to Medical Issues,Slow Progress due to Activity Tolerance Assessment Summary Pt CGA for tansfers and ambulation w/ SPC today. Able to ambulate ~80 ft w/ SPC CGA w/ cues for safety awareness. Pt became fatigued following ambulation w/ mildly labored breathing, but O2 high 90s. Pt high fall risk due to cognition, poor safety awareness, and shuffling gait and will benefit from SNF to improve functional mobility. Goals Bed Mobility Goal Standby Assistance Transfer Goal Standby Assistance,Front Wheeled Walker Gait Goal Standby Assistance,Front Wheel Walker Gait Distance 200 Other Goals improve ambulation using 4WW/ spc/ without AD 250 ft SBA up/down 2 platform steps using 4WW/SPC SBA; up/down 16 steps L rail R SPC SBA Days to Meet Goals 10 Frequency of Treatment Frequency Of Treatment Once a Day Treatment Plan Physical Therapy Treatment Plan Bed Mobility Training,Transfer Training,Gait Training, Therapeutic Exercise,Balance Retraining,Post Op Education, Discharge Planning,Hot or Cold Pack,Neuromuscular Re-ed, Coordination Retraining,Manual Therapy Precautions Other Precautions falls Recommendations To Nursing Amount of Assist Needed 1 Person Assist Discharge Recommendations PT Discharge Recommendations Home with / Assist Available,Home Health,SNF Rehab,Home vs SNF Equipment Needed for Home Before FWW if pt goes home and not Discharge safe with 4WW/SPC/without AD Transportation Needs at Discharge Wheelchair/Cabulance
--- NOTE | 2021-10-09 11:08 | PC.NURSE ---
Addendum entered by Larry Ram R.N. 10/09/21 16:51: up and down a fair amount. some what impulsive. doesn't call for help even though reminded to do so. off home . Original Note: Pt alert, up with in room though Pt not following 's requests. Pt resettled to bed. Then up in chair. plans to leave for home this morning to freshen up and get some rest. Pt following commands. Taking some b'fast.
--- NOTE | 2021-10-09 14:59 | OT.IPNOTE ---
Attempted to see pt for OT treatment and pt states just wanting to rest and not wanting to get up at this time.
--- NOTE | 2021-10-09 17:26 | P.PN_ITS ---
Subjective Subjective Date Patient Seen: 10/09/21 Interval history: 76-year-old male admitted to the hospital for delirium, acute metabolic encephalopathy, likely related to medications for treatment of his glioblastoma multiforme. He is awaiting possible SNF. Exam Vital Signs (past 8 hours): - 10/09/21 12:07 10/09/21 13:50 Temperature 96.9 F L Pulse Rate 79 Respiratory Rate 15 Blood Pressure 138/70 Pulse Oximetry 97 97 Oxygen Delivery Method Room Air Oxygen Flow Rate 0 Narrative Exam Narrative: Pleasant elderly male confused lying in bed Resp Other: Lungs clear to auscultation Cardio Other: Cardiac exam: Regular rate and rhythm normal S1-S2 GI Other: Abdomen:? 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 Father No problems noted. Mother No problems noted. Brother No problems noted. Social History marital status: household members: spouse education level: college Smoking Status: Never smoker second hand exposure: No alcohol intake: current substance use type: does not use Assessment & Plan Assessment & Plan narrative: 1. Encephalopathy, likely secondary to steroids, improving -Patient's steroids have been tapered, he is currently on 2 mg a day now -Continue low-dose Seroquel of 12.5 at night -Continue PT OT -Patient very likely will need shelter it is unlikely that his will be able to care for him at home, however placement has been difficult. 2. Essential hypertension, chronic -Continue home doses of Nifedipine 60 mg daily and hydrochlorothiazide 25 mg p.o. daily 3. Hyperlipidemia, chronic -Continue home dose of atorvastatin 10 mg p.o. at bedtime 4. BPH, chronic -Continue home dose of tamsulosin 0.4 mg p.o. in the evening -Augustin was placed due to urinary retention and had urine output of 500 mls when scanned and augustin placed -Patient removed his Augustin catheter, will leave this out. 5. History of gout, chronic -Continue home dose of allopurinol 300 mg p.o. daily 6. History of dry eye, chronic -Continue home dose of Restasis 0.4 mg L b.i.d Continue PT OT, attempt SNF placement but may be unable and have to proceed home with home health. Time Spent With Patient Critical Care time: I spent a total of [] minutes of critical care time on this patient's care today; this time is exclusive of procedural time. Quality VTE Deep Vein Thrombosis/Pulmonary Embolism Present on Admission: No
[2021-10-09] MEDS: ATORVASTATIN 20 MG TABLET 10 MG PO (20:37)
[2021-10-09] MEDS: QUETIAPINE 25 MG TABLET PO (20:49)
[2021-10-10] VITALS: BP 132/66; PULSE 58; RESP 18; TEMP 36.6; O2SAT 99
[2021-10-10 06:00] VITALS: BP 138/68; PULSE 59; RESP 18; TEMP 36.1; O2SAT 98
[2021-10-10 07:00] VITALS: O2SAT 95
[2021-10-10 09:11] VITALS: O2SAT 95
[2021-10-10] MEDS: TAMSULOSIN 0.4 MG CAPSULE PO (09:59)
[2021-10-10] MEDS: NIFEdipine 30 MG TAB ER 60 MG PO (09:59)
[2021-10-10] MEDS: allopurinoL 300 MG TABLET PO (10:00)
[2021-10-10] MEDS: PANTOPRAZOLE DR 20 MG TABLET PO (10:00)
[2021-10-10] MEDS: ASPIRIN EC 81 MG TABLET PO (10:00)
[2021-10-10] MEDS: dexAMETHasone 4 MG TABLET 2 MG PO (10:00)
[2021-10-10] MEDS: DICLOFENAC 1% GEL 100 GM 1 APPLIC TOP ×2 (10:01→13:29)
[2021-10-10] MEDS: ENOXAPARIN 40 MG/0.4 ML SYRINGE SUBCUT (10:01)
[2021-10-10] MEDS: MAGNESIUM CITRATE 150 MG 1 EACH PO (10:01)
[2021-10-10 11:09] VITALS: BP 109/62; PULSE 65; RESP 16; TEMP 37.6; O2SAT 96
--- NOTE | 2021-10-10 12:01 | CM.DPC ---
DCP Cont: Patient is to be discharging home today. Sat with , Jenn, and went over caregivers, had given her information yesterday. Encouraged her to start making calls for home support. Updated Lisa at [facility] that patient is discharging home today, she will need resumption orders, but will add nursing and DEPARTMENT ADMINISTRATOR. DC Summary is pending. Let Lisa know that DEPARTMENT ADMINISTRATOR is needed to continue to help patient's with resources. P: Patient is discharging home today with [facility], and will add DEPARTMENT ADMINISTRATOR and nursing. Lucy Lisa RN/Cloth Finishing Range Operator
--- NOTE | 2021-10-10 14:40 | P.DS_ITS ---
History of Present Illness History of Present Illness Date Patient Seen: 10/10/21 Chief complaint: Hallucinations Narrative: Per FERNANDEZ Vieyra: Rigoberto Peng is a 76 y.o. male with a history of a glioblastoma of the right temporal area diagnosed and partially resected in May of 2021.? He completed radiation 2 weeks ago and is taking temozolomide, completing a 2nd cycle as September 25 per his .? He was brought into the emergency department due to increased confusion, hallucinating, and per the patient was getting more paranoid.? He does admit to being confused more than his normal self, apparently was not oriented to time or the significance of today per the emergency department provider.? He does endorse having prostate issues and his stated he had urinary retention in the emergency department requiring them to place a Samuels catheter.? He denies having a headache he states that he did have a fever but does not know how high it was, denies sensorial symptoms, difficulty swallowing, nausea vomiting, abdominal pain, dysuria, diarrhea constipation, or peripheral neuropathies. Patient sees Dr. Garcia, oncologist, ED provider spoke with Dr. Napoles who is covering for Dr. Garcia. He also sees Dr. Chaparro, neurosurgeon at [facility], Dr. Borges covering. ED consultation recommended administration of a loading dose of IV decadron 10 mg followed by 4 mg IV q 6 hours and to obtain an MRI w/wo contrast to assess if there is expansion of the glioblastoma. CT of the head ordered in the ED was concerning for ?abnormally increased enhancement, we which appears worse than on recent prior MRI exam.?? His last MRI was done on August 13, 2021.? Patient is afebrile, blood pressure 145/75, heart rate 61, respiratory rate 18, oxygen saturation 96% on room air he weighs 83.9 kg.? CBC is unremarkable, he has a mild left shift of 7800, chemistries are unremarkable except for a mildly elevated glucose of 127 likely secondary to his dexamethasone use, liver enzymes within normal limits, prolactin was 13.9, UA was negative for UTI, COVID-19 PCR was not ordered in the ED and is now ordered and pending. Discharge Providers Provider Date of admission: 10/03/21 19:25 Discharge Date: 10/10/21 Primary care physician: FERNANDEZ Dorsey Consults: 10/03/21 21:49 Consult to Physician Routine Comment: Consulting Provider: Jocy Napoles Reason for consultation: medical management of glioblastoma, sees Dr. Garcia Has provider been notified: Yes 10/07/21 10:42 Consult to Occupational Therapy Evaluate & Treat Comment: Physician Instructions: Evaluate and treat Consult to Physical Therapy Evaluate & Treat Comment: Physician Instructions: Evaluate and Treat 10/10/21 12:06 Consult to Home Health Routine Comment: Reason For Exam: Resume Home Health P.T, Speech, add RN & COMMUNICATIONS PROJECT LEAD Discharge provider: Bean Rizvi DO Summary Hospital Course Discharge Diagnosis: 1. Encephalopathy, likely secondary to steroids, improving 2. Essential hypertension, chronic 3. Hyperlipidemia, chronic 4. BPH, chronic 5. History of gout, chronic 6. History of dry eye, chronic Hospital Course: This is a 76 year old male with PMH of HTN, HLD, BPH, gout, recent diagnosis of glioblastoma multiforme s/p resection and chemotherapy with steroid therapy who presented to the ER with hallucinations and paranoia along with confusions. This was likely due to his steroids. His hallucinations and paranoia did improve slightly with continued steroid taper. He was recommended for SNF with occupational therapy however no facility was able to be located after extensive search with care management. He also likely has a dementia contributing to his symptoms but recommend outpatient cognitive testing after steroids are completely tapered. He was started on nightly seroquel to help with behaviors and patient was discharged home with home health referral. No other medication changes are recommended at the time of discharge other than the seroquel noted above. Time Spent with Patient Time spent: Greater than 30 minutes Exam Vital Signs (past 8 hours): - 10/10/21 07:00 10/10/21 09:11 10/10/21 11:09 Temperature 99.6 F Pulse Rate 65 Respiratory Rate 16 Blood Pressure 109/62 Pulse Oximetry 95 95 96 Oxygen Delivery Method Room Air Oxygen Flow Rate 0 Narrative Exam Narrative: Pleasant elderly male confused lying in bed Resp Other: Lungs clear to auscultation Cardio Other: Cardiac exam: Regular rate and rhythm normal S1-S2 GI Other: Abdomen:? 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 Father No problems noted. Mother No problems noted. Brother No problems noted. Social History marital status: household members: spouse education level: college Smoking Status: Never smoker second hand exposure: No alcohol intake: current substance use type: does not use Discharge Plan Discharge Plan Patient Disposition: Home Health Service Provider Discharge Comment: You were admitted to the hospital with confusion, worsened by steroids. Steroids were tapered. Please follow up with oncology as previously scheduled. Seroquel added at night. Discharge orders & Medications Prescriptions: New quetiapine 25 mg Tablet 25 mg PO BEDTIME 30 Days Qty: 30 0RF Continued multivitamin with minerals [Men's One Daily] tablet 1 tab PO DAILY 0RF aspirin [Adult Aspirin Regimen] 81 mg tablet,delayed release (DR/EC) 81 mg PO DAILY 0RF cholecalciferol (vitamin D3) 1,000 unit capsule 1,000 unit PO DAILY 0RF [place]-3 Fish oil capsule 1,400 mg PO DAILY 0RF cyclosporine [Restasis] 1 EACH dropperette 1 drp OPHTH BID Qty: 0 0RF omeprazole 20 mg capsule,delayed release(DR/EC) 20 mg PO QDAY Qty: 90 1RF atorvastatin 10 mg tablet See Rx Instructions .ROUTE .COMPLEX Qty: 90 0RF Dose Instruction: TAKE 1 TABLET BY MOUTH AT BEDTIME Rx Instructions: TAKE 1 TABLET BY MOUTH AT BEDTIME hydrochlorothiazide 25 mg tablet See Rx Instructions .ROUTE .COMPLEX Qty: 90 0RF Dose Instruction: TAKE 1 TABLET BY MOUTH EVERY DAY Rx Instructions: TAKE 1 TABLET BY MOUTH EVERY DAY allopurinol 300 mg tablet 300 mg PO QDAY Qty: 90 0RF tamsulosin 0.4 mg capsule 0.4 mg PO DAILY Qty: 90 2RF nifedipine 60 mg tablet extended release 60 mg PO QDAY Qty: 90 1RF magnesium citrate 125 mg capsule 125 mg PO DAILY 0RF diclofenac sodium 1 % gel 2 g topical QID Qty: 100 0RF Rx Instructions: apply to right shoulder temozolomide 20 mg Capsule 20 mg PO DAILY Qty: 42 0RF Rx Instructions: Take one tablet (20 mg) daily and one tablet (140mg) daily (another prescription) during radiation therapy. Must be taken on empty stomach. temozolomide [Temodar] 140 mg Capsule 140 mg PO DAILY Qty: 42 0RF Rx Instructions: Take one tablet (140 mg) daily and one tablet (20mg) daily (another prescription) during radiation therapy. Must be taken on empty stomach. ondansetron HCl 4 mg Tablet 4 mg PO Q6H Qty: 60 1RF Rx Instructions: Take one tablet one hour prior to chemotherapy pill and evry 6 hours IF needed for nausea and vomiting. temozolomide [Temodar] 100 mg Capsule 300 mg PO DAILY Qty: 15 12RF Rx Instructions: take 3 tablets daily for 5 days must be taken on empty stomach dexamethasone 2 mg Tablet 2 mg PO DAILY Qty: 60 0RF Rx Instructions: Take 2 tablets daily Discontinued dexamethasone 2 mg tablet 4 mg PO BID 0RF Rx Instructions: 08/23/21 take one tab x 7 day then taper one tab QOD x 10 day Follow up/Referrals: Delmis Mayorga ARNP [Primary Care Provider] - Visit Report/Discharge Packet Instructions: Encephalopathy Discharge Data Primary Care Provider: Delmis Mayorga Quality VTE Deep Vein Thrombosis/Pulmonary Embolism Present on Admission: No
--- NOTE | 2021-10-10 15:54 | PC.NURSE ---
Pt showered and dressed ready for discharge. No IV or tele. Reviewed d/c instructions with spouse, discussed d/c meds, time of last dose, reviewed stroke education, and follow up. Discussed with patient getting up slowly from sitting or laying to reduce risk of falls. Patient out via w/c by JUNIOR BUYER to pov with spouse and all belongings.
== END 2021-10-10 16:02 | disposition home health service (06) | DRG 92 ==
LOC: ED 19:26 → AC 19:26
PROVIDERS: Internal Medicine; Admitting Provider Nurse Practitioner Family; Emergency Provider Emergency Medicine; PCP Nurse Practitioner Family; Referring Provider Emergency Medicine; Visit Provider Nurse Practitioner Family
DX: G92.8 Other toxic encephalopathy (principal); C71.2 Malignant neoplasm of temporal lobe; T38.0X5A Adverse effect of glucocorticoids and synthetic analogues, initial encounter; I10 Essential (primary) hypertension; E78.5 Hyperlipidemia, unspecified; N40.1 Benign prostatic hyperplasia with lower urinary tract symptoms; R33.8 Other retention of urine; M1A.9XX0 Chronic gout, unspecified, without tophus (tophi); H04.129 Dry eye syndrome of unspecified lacrimal gland; K21.9 Gastro-esophageal reflux disease without esophagitis; Z66 Do not resuscitate; Z20.822 Contact with and (suspected) exposure to COVID-19
CPT/HCPCS: 36415; 51702; 70470; 70553; 80048; 80053; 80305; 81001; 82040; 82550; 82962; 83605; 83735; 83880; 84146; 84443; 84484; 85025; 87040; 87086; 87635; 93005; 94760; 96374; 96375; 97110; 97116; 97162; 97166; 97530; 97535; 99284; C9803; J0696; J1100; J1630; J1650; J2060